=== PATIENT | female | born 1930 | race Caucasian/White ===

== ENCOUNTER 2019-02-04 20:15 | Inpatient (IN) | payer MEDICARE, OTHER ==
[~2019-02-04] VITALS: Ht 152.4 cm; Wt 57.2 kg
[~2019-02-04 20:15] MED LIST: ACET500T68 PO; ASCO500T2 PO; CEFD300C PO; DILT240T8 PO; ERGO500027 PO; FERR325T20 PO; FURO20TA3 PO; LISI1TAB5 PO; MULT-479 PO; PANT40TA77 PO; POTA20TA82 PO; PRED5DRO16 LEFTEYE; WARF2TAB PO
[2019-02-04 20:55] LABS: BASO # 0.1 x10^3/uL (0.0-0.2); BASO % 0 % (0-3); EOS % 0 % (0-3); LYMPH % 9 % (24-48); MEAN CORPUSCULAR HEMOGLOBIN 31 pg (25-35); MEAN CORPUSCULAR HGB CONC 33 g/dL (31-37); MEAN CORPUSCULAR VOLUME 95 fL (79-100); MONO # 2.4 x10^3/uL (0.0-1.1); MONO % 7 % (0-9); NEUT # 28.2 x10^3uL (1.8-7.7); NEUT % 83 % (31-73); PLATELET COUNT 460 x10^3/uL (140-400); RED BLOOD COUNT 2.09 x10^6/uL (3.50-5.40); RED CELL DISTRIBUTION WIDTH 14.2 % (11.5-14.5); WHITE BLOOD COUNT 33.8 x10^3/uL (4.0-11.0)
[2019-02-04 21:04] LABS: CALCIUM 9.1 mg/dL (8.5-10.1); CREATININE 2.9 mg/dL (0.6-1.0); GFR 15.4
[2019-02-04 21:05] LABS: PROTHROMBIN TIME PATIENT 37.8 SEC (11.7-14.0)
[2019-02-04 21:10] LABS: ALBUMIN 2.4 g/dL (3.4-5.0); ALBUMIN/GLOBULIN RATIO 0.6 (1.0-1.7); MAGNESIUM 2.3 mg/dL (1.8-2.4); TOTAL BILIRUBIN 0.3 mg/dL (0.2-1.0); TOTAL PROTEIN 6.7 g/dL (6.4-8.2)
[2019-02-04 21:12] LABS: HEMOGLOBIN 6.5 g/dL (12.0-15.5)
[2019-02-04 21:14] LABS: BILIRUBIN,URINE NEGATIVE (NEG); CLARITY,URINE CLEAR; COLOR,URINE YELLOW; NITRITE,URINE NEGATIVE (NEG); PROTEIN,URINE NEGATIVE (NEG-TRACE); UROBILINOGEN,URINE 0.2 mg/dL (0.2 mg/dL)
[2019-02-04 21:24] LABS: BACTERIA,URINE 0 /HPF (0-FEW); FECAL OB PT NEGATIVE (NEG); SQUAMOUS EPITHELIAL CELL,UR OCC /LPF
[2019-02-04 22:00] LABS: % BASOS 1 % (0-3); % LYMPHS 8 % (24-48); % SEGS 91 % (35-66)
[2019-02-04] MEDS ORDERED: PANTOPRAZOLE IV PUSH 40 MG VIAL. IVP ONE (22:00)
[2019-02-04 22:01] LABS: PLT ESTIMATE INCREASED (ADEQUATE); POLYCHROMASIA SLIGHT; SCHISTOCYTES OCC
--- NOTE | 2019-02-04 22:53 | PHYS DOC ---
Past Medical History Past Medical History: CAD, Cancer, CHF, Dementia, GERD, Hip Fracture, Hypertension, Renal Failure Past Surgical History: Hip Replacement Additional Past Surgical Histo: pt does not know Alcohol Use: None Drug Use: None Adult General Chief Complaint Chief Complaint: ABNORMAL LABS HPI HPI 89-year-old female presents to ER via EMS from the [facility] for abnormal labs. Dr. Olivo had spoke with Dr. Connelly, pt's PCP prior to pt's arrival and pt has low H&H and is on Coumadin with concerns for GI bleed with dark stools. Also reported pt with some increased confusion. Pt on arrival is alert to self- fatigued/frail appearance. Review of Systems Review of Systems Pt's alert to self otherwise confused and unable to provide ROS Current Medications Current Medications Allergies Allergies Allergies Coded Allergies Type Severity Reaction Last Updated Verified NSAIDS (Non-Steroidal Anti-Inflamma Allergy Unknown 01/26/19 Yes Physical Exam Physical Exam Constitutional: Well developed, no acute distress, non-toxic appearance. Fatigued appearance. Pale facial skin tone. Clear speech HENT: Normocephalic, atraumatic, mucous membranes pale/dry, no oral exudates, nose normal. [] Eyes: PERRLA, no nystagmus, conjunctiva normal, no discharge. [] Neck: Normal range of motion, no tenderness, supple, no stridor. [] Cardiovascular: Heart rate regular rhythm, no murmur [] Lungs & Thorax: Bilateral breath sounds clear to auscultation- resp. equal/nonlabored Abdomen: Bowel sounds normal, soft- no distention/rigidity, no tenderness/facial grimacing on palp. of abd, no masses, no pulsatile masses. [] Skin: Warm, dry, no erythema, no rash. [] Back: No tenderness, no CVA tenderness. [] Extremities: No cyanosis, no clubbing, ROM intact bilat. upper extremities, decreased ROM rt LE- pt had rt hip surgery. Surgical site rt lateral hip healing welling- adin intact with no swelling/erythema/drainage. No edema. 2+ radial bilat. 2+ bilat. posterior tibial/dorsalis pedis. [] Neurologic: Alert and oriented X 1, normal motor function, normal sensory f unction, no focal deficits noted. [] Psychologic: Affect normal, mood normal. [] Current Patient Data Vital Signs Vital Signs Date Time Temp Pulse Resp B/P (MAP) Pulse Ox O2 Delivery O2 Flow Rate FiO2 02/04/19 21:21 90 117/58 (77) 99 Room Air 02/04/19 20:15 98.3 24 98.3 Lab Values Laboratory Tests Test 02/04/19 20:38 02/04/19 21:00 White Blood Count 33.8 x10^3/uL (4.0-11.0) H Red Blood Count 2.09 x10^6/uL (3.50-5.40) L Hemoglobin 6.5 g/dL (12.0-15.5) Hematocrit 20.0 % (36.0-47.0) *L Mean Corpuscular Volume 95 fL (79-100) Mean Corpuscular Hemoglobin 31 pg (25-35) Mean Corpuscular Hemoglobin Concent 33 g/dL (31-37) Red Cell Distribution Width 14.2 % (11.5-14.5) Platelet Count 460 x10^3/uL (140-400) H Neutrophils (%) (Auto) 83 % (31-73) H Lymphocytes (%) (Auto) 9 % (24-48) L Monocytes (%) (Auto) 7 % (0-9) Eosinophils (%) (Auto) 0 % (0-3) Basophils (%) (Auto) 0 % (0-3) Neutrophils # (Auto) 28.2 x10^3uL (1.8-7.7) H Lymphocytes # (Auto) 3.0 x10^3/uL (1.0-4.8) Monocytes # (Auto) 2.4 x10^3/uL (0.0-1.1) H Eosinophils # (Auto) 0.0 x10^3/uL (0.0-0.7) Basophils # (Auto) 0.1 x10^3/uL (0.0-0.2) Segmented Neutrophils % 91 % (35-66) H Lymphocytes % 8 % (24-48) L Basophils % 1 % (0-3) Platelet Estimate Increased (ADEQUATE) Polychromasia Slight Schistocytes Occ Prothrombin Time 37.8 SEC (11.7-14.0) H Prothrombin Time INR 3.8 (0.8-1.1) H PTT 49 SEC (24-38) H Sodium Level 135 mmol/L (136-145) L Potassium Level 5.0 mmol/L (3.5-5.1) Chloride Level 101 mmol/L (98-107) Carbon Dioxide Level 19 mmol/L (21-32) L Anion Gap 15 (6-14) H Blood Urea Nitrogen 143 mg/dL (7-20) H Creatinine 2.9 mg/dL (0.6-1.0) H Estimated GFR (Cockcroft-Gault) 15.4 BUN/Creatinine Ratio 49 (6-20) H Glucose Level 158 mg/dL (70-99) H Lactic Acid Level 1.1 mmol/L (0.4-2.0) Calcium Level 9.1 mg/dL (8.5-10.1) Magnesium Level 2.3 mg/dL (1.8-2.4) Total Bilirubin 0.3 mg/dL (0.2-1.0) Aspartate Amino Transferase (AST) 12 U/L (15-37) L Alanine Aminotransferase (ALT) 17 U/L (14-59) Alkaline Phosphatase 84 U/L (46-116) Total Protein 6.7 g/dL (6.4-8.2) Albumin 2.4 g/dL (3.4-5.0) L Albumin/Globulin Ratio 0.6 (1.0-1.7) L Urine Collection Type U cath Urine Color Yellow Urine Clarity Clear Urine pH 5.0 Urine Specific [place] 1.015 Urine Protein Negative mg/dL (NEG-TRACE) Urine Glucose (UA) Negative mg/dL (NEG) Urine Ketones (Stick) Negative mg/dL (NEG) Urine Blood Small (NEG) Urine Nitrite Negative (NEG) Urine Bilirubin Negative (NEG) Urine Urobilinogen Dipstick 0.2 mg/dL (0.2 mg/dL) Urine Leukocyte Esterase Moderate (NEG) Urine RBC 1-2 /HPF (0-2) Urine WBC 1-4 /HPF (0-4) Urine Squamous Epithelial Cells Occ /LPF Urine Bacteria 0 /HPF (0-FEW) Stool Occult Blood Negative (NEG) Laboratory Tests 02/04/19 20:38 Laboratory Tests 02/04/19 20:38 Microbiology 02/04/19 Blood Culture - Final, Complete NO GROWTH AFTER 5 DAYS 02/04/19 Urine Culture - Final, Complete 02/04/19 Urine Culture Result 1 (HIRAM) - Final, Complete 02/04/19 Antimicrobic Susceptibility - Final, Complete EKG EKG EKG obtained 02/04/19 at [address] Olivo Sinus rhythm Prolonged ME Rate 91 No STEMI Radiology/Procedures Radiology/Procedures PROCEDURE: CHEST AP ONLY AP chest. HISTORY: Weakness, low hemoglobin AP view was taken of the chest. Heart is within normal limits in size. There is a large hiatus hernia. There is no pleural effusion. There are no confluent infiltrates. IMPRESSION: 1. Large hiatus hernia. 2. No acute infiltrates. Electronically signed by: Edilson Hand MD (02/04/2019 11:21 PM) [facility] DICTATED and SIGNED BY: EDILSON HAND MD DATE: 02/04/192320 Course & Med Decision Making Course & Med Decision Making Pertinent Labs and Imaging studies reviewed. (See chart for details) Pt's case and plan of care was discussed with Dr. Olivo as he had spoke with Dr. Connelly, pt's PCP regarding pt's case. Patient had type and cross done and will receive 2 units FFP and 2 units packed red blood cells. Patient's fecal occult was negative although stools per RN were dark in color no gross blood. 2139: Spoke with Dr. Connelly, pt's PCP and discussed pt's case and plans for admit/blood transfusion. Lab results were discussed with H&H at 6.8/21.5; INR 3.8. WBCs 33.8 no bands with lactic acid normal 1.1. UA with moderate leuks neg. nitrates/small blood with micro showing WBCs 1-4 with occas. squamous cells. Chest x-ray was reviewed by Dr. Olivo when no obvious abnormal findings. He is agreeable that patient will receive 2 units FFP and 2 units packed red blood cells. He is also requesting patient to have vitamin K and Protonix IV started. Will provide patient with 80 mg IV Protonix bolus and start drip. He also wants SCDs and GI consult. We will obtain H&H every 6 hours per his request as well. Patient will be admitted to monitored floor for further care. Dragon Disclaimer Dragon Disclaimer This electronic medical record was generated, in whole or in part, using a voice recognition dictation system. Departure Departure Impression: Primary Impression: Anemia Additional Impression: Leukocytosis Disposition: ADMITTED INPATIENT Admitting Physician: Madi. Renee Condition: STABLE Referrals: BERRY CONNELLY MD (PCP) Problem Qualifiers RASHARD VAZQUEZ CANVAS BASTER Feb 04, 2019 22:53
[2019-02-04] MEDS ORDERED: PHYTONADIONE 10 MG/ML AMPUL. SQ ONE (23:00)
--- NOTE | 2019-02-04 23:23 | RAD ---
AP chest. HISTORY: Weakness, low hemoglobin AP view was taken of the chest. Heart is within normal limits in size. There is a large hiatus hernia. There is no pleural effusion. There are no confluent infiltrates. IMPRESSION: 1. Large hiatus hernia. 2. No acute infiltrates. Electronically signed by: Edilson Hand MD (02/04/2019 11:21 PM) [facility]
[2019-02-04] MEDS: PANTOPRAZOLE SODIUM IV DRIP 80 MG in IV NORMAL SALINE 100ML 100 ML IV SCH (23:24)
[2019-02-05] VITALS (22 sets, daily range): BP systolic 111–145; BP diastolic 37–59
--- NOTE | 2019-02-05 | NUR ---
The patient, LESLEE PAZ, 89 y/o, F admitted by BERRY CAMPBELL MD, was given written information regarding hospital policies, unit procedures and contact persons. Patient arrived in room at this time. The patient was transported via ED bed by ED staff member. No family members at patient's bedside at this time. Valuables were checked and noted, patient's belongings were placed in a belongings bag and put in the room closet. Patient is currently resting with eyes closed in bed at this time. Patient states no needs during this time, patient was cleaned and changed at this time. This RN will continue to monitor this patient at this time.
--- NOTE | 2019-02-05 06:03 | EKG ---
[facility] [address] [place] [address] Test Date: 2019-02-04 Test Time: 20:49:59 Pat Name: LESLEE PAZ Department: Room: Gender: F [employer] Supervisor: : [id number] Requested By: RASHARD VAZQUEZ Order Number: [id number] Reading MD: Measurements Intervals [place] Rate: 90 P: -7 IA: 226 QRS: 53 QRSD: 66 T: 67 QT: 338 QTc: 417 Interpretive Statements SINUS RHYTHM PROLONGED IA INTERVAL ABNORMAL ECG No previous ECG available for comparison
[2019-02-05] MEDS: PANTOPRAZOLE SODIUM IV DRIP 80 MG in IV NORMAL SALINE 100ML 100 ML IV SCH (08:54)
--- NOTE | 2019-02-05 08:55 | PDOC2 ---
GI CONSULT Reason For Consult: Anemia, dark stools HPI: HPI: 89 y/o female sent to ER from [facility] for anemia and dark stools. Not a lot of meaningful history from her this morning. "I think I had some bleeding. I think I had some pain." Hgb 6.5 (compared to 12 on 01/26/19 and 10.5 on 01/29 s/p right hip fracture and repair), INR 3.8 on Warfarin (which I believe was started after hips surgery though this is unclear), BUN 143, Cr 2.9, and WBC 33.8. Fecal occult was negative. In additional to Warfarin, her med list from the [facility] includes iron and Protonix. Per RN, had 1 dark stool overnight. Has transfused 1 unit pRBCs, received vit K x1, and is on PPI drip. No labs today. PMH in chart includes PUD and GERD. X-ray noted large hiatal hernia. PMH: PMH: per chart - CHF, HTN, CKD, GERD, hiatal hernia, PUD, dementia, OA, UTI, BCC, DJD, PVD, glaucoma right shoulder surgery, right hip fracture/surgery FH: Family History: No pertinent hx Social History: Smoke: Quit ALCOHOL: none Drugs: None ROS: Difficult to obtain. Vitals: Vitals: Vital Signs Date Time Temp Pulse Resp B/P (MAP) Pulse Ox O2 Delivery O2 Flow Rate FiO2 02/05/19 07:49 Room Air 02/05/19 07:00 98.3 82 18 121/42 (68) 96 98.3 Labs: Labs: Laboratory Tests Test 02/04/19 20:38 02/04/19 21:00 White Blood Count 33.8 x10^3/uL (4.0-11.0) Red Blood Count 2.09 x10^6/uL (3.50-5.40) Hemoglobin 6.5 g/dL (12.0-15.5) Hematocrit 20.0 % (36.0-47.0) Mean Corpuscular Volume 95 fL (79-100) Mean Corpuscular Hemoglobin 31 pg (25-35) Mean Corpuscular Hemoglobin Concent 33 g/dL (31-37) Red Cell Distribution Width 14.2 % (11.5-14.5) Platelet Count 460 x10^3/uL (140-400) Neutrophils (%) (Auto) 83 % (31-73) Lymphocytes (%) (Auto) 9 % (24-48) Monocytes (%) (Auto) 7 % (0-9) Eosinophils (%) (Auto) 0 % (0-3) Basophils (%) (Auto) 0 % (0-3) Neutrophils # (Auto) 28.2 x10^3uL (1.8-7.7) Lymphocytes # (Auto) 3.0 x10^3/uL (1.0-4.8) Monocytes # (Auto) 2.4 x10^3/uL (0.0-1.1) Eosinophils # (Auto) 0.0 x10^3/uL (0.0-0.7) Basophils # (Auto) 0.1 x10^3/uL (0.0-0.2) Segmented Neutrophils % 91 % (35-66) Lymphocytes % 8 % (24-48) Basophils % 1 % (0-3) Platelet Estimate Increased (ADEQUATE) Polychromasia Slight Schistocytes Occ Prothrombin Time 37.8 SEC (11.7-14.0) Prothromb Time International Ratio 3.8 (0.8-1.1) Activated Partial Thromboplast Time 49 SEC (24-38) Sodium Level 135 mmol/L (136-145) Potassium Level 5.0 mmol/L (3.5-5.1) Chloride Level 101 mmol/L (98-107) Carbon Dioxide Level 19 mmol/L (21-32) Anion Gap 15 (6-14) Blood Urea Nitrogen 143 mg/dL (7-20) Creatinine 2.9 mg/dL (0.6-1.0) Estimated GFR (Cockcroft-Gault) 15.4 BUN/Creatinine Ratio 49 (6-20) Glucose Level 158 mg/dL (70-99) Lactic Acid Level 1.1 mmol/L (0.4-2.0) Calcium Level 9.1 mg/dL (8.5-10.1) Magnesium Level 2.3 mg/dL (1.8-2.4) Total Bilirubin 0.3 mg/dL (0.2-1.0) Aspartate Amino Transf (AST/SGOT) 12 U/L (15-37) Alanine Aminotransferase (ALT/SGPT) 17 U/L (14-59) Alkaline Phosphatase 84 U/L (46-116) Total Protein 6.7 g/dL (6.4-8.2) Albumin 2.4 g/dL (3.4-5.0) Albumin/Globulin Ratio 0.6 (1.0-1.7) Urine Collection Type U cath Urine Color Yellow Urine Clarity Clear Urine pH 5.0 Urine Specific [place] 1.015 Urine Protein Negative mg/dL (NEG-TRACE) Urine Glucose (UA) Negative mg/dL (NEG) Urine Ketones (Stick) Negative mg/dL (NEG) Urine Blood Small (NEG) Urine Nitrite Negative (NEG) Urine Bilirubin Negative (NEG) Urine Urobilinogen Dipstick 0.2 mg/dL (0.2 mg/dL) Urine Leukocyte Esterase Moderate (NEG) Urine RBC 1-2 /HPF (0-2) Urine WBC 1-4 /HPF (0-4) Urine Squamous Epithelial Cells Occ /LPF Urine Bacteria 0 /HPF (0-FEW) Stool Occult Blood Negative (NEG) Allergies: Coded Allergies: I S O L A T I O N *CONTACT* (Verified Allergy, Unknown, 01/28/19) mrsa NSAIDS (Non-Steroidal Anti-Inflamma (Verified Allergy, Unknown, 01/26/19) Medications: Current Medications Medications (Trade) Dose Ordered Sig/Sen Route PRN Reason Start Time Stop Time Status Last Admin Dose Admin Pantoprazole Sodium (PROTONIX VIAL for IV PUSH) 80 mg 1X ONCE IVP 02/04/19 22:00 02/04/19 22:11 DC 02/04/19 23:23 Pantoprazole Sodium 80 mg/ Sodium Chloride 100 ml @ 8 mls/hr Q10H IV 02/04/19 22:30 02/05/19 22:29 02/05/19 08:54 Phytonadione (Vitamin K Ampule) 5 mg 1X ONCE SQ 02/04/19 23:00 02/04/19 23:01 DC 02/04/19 23:29 Imaging: Imaging: CXR IMPRESSION: 1. Large hiatus hernia. 2. No acute infiltrates. PE: GEN: NAD HEENT: Atraumatic, PERRL LUNGS: room air HEART: RRR - pushes stethoscope away ABD: NABS, S/ND/NT - difficult exam - she pushes my hands away EXTREMITY: No edema SKIN: wound right hip NEURO/PSYCH: awake and alert, confused A/P: A/P: Anemia, dark stools - on iron Leukocytosis, GURDEEP/CKD Recent hip surgery, Coumadin coagulopathy ?h/o PUD, GERD, large hiatal hernia - on PPI CRC screen - unclear -- Anemia likely related to recent hip fracture/surgery and Warfarin. Hold Warfarin. Recheck labs (has hemogram ordered Q 6 - defer to primary), correct coagulopathy, continue PPI, restart iron. Will ask for nephrology opinion - consider EGD on Sunday pending renal function and DPOA opinion. Okay to eat - try clears and ADAT - d/w nurse. Defer leukocytosis to primary. PAOLA KHOURY Feb 05, 2019 08:55
--- NOTE | 2019-02-05 09:15 | NUR ---
Pt admitted with severe anemia. D/C from here recently back to [place]. Per previous admission pt was indep amb at facility and able to assist with dressing. Pt would benefit from PT/OT assessment. Please write PT/OT eval and treat orders if you agree. Addendum: 02/05/19 at 0915 by KARLY JORDAN PT Amended: Links added.
--- NOTE | 2019-02-05 09:18 | NUR ---
IP: Pt has a recent hx of + mrsa screen on 01/27/19. Pt to be in contact precautions until there are 2 negative screens 7 days apart.
[2019-02-05] MEDS: FERROUS SULFATE 325 MG TABLET. PO SCH ×2 (11:01→16:25)
[2019-02-05 11:05] LABS: HEMATOCRIT 22.1 % (36.0-47.0); HEMOGLOBIN 7.3 g/dL (12.0-15.5); RED BLOOD COUNT 2.4 x10^6/uL (3.50-5.40); RED CELL DISTRIBUTION WIDTH 16.8 % (11.5-14.5); WHITE BLOOD COUNT 25.4 x10^3/uL (4.0-11.0)
[2019-02-05 11:14] LABS: PROTHROMBIN TIME PATIENT 30.4 SEC (11.7-14.0)
[2019-02-05 11:28] LABS: ALBUMIN 2.4 g/dL (3.4-5.0); ALBUMIN/GLOBULIN RATIO 0.6 (1.0-1.7); CALCIUM 8.8 mg/dL (8.5-10.1); CREATININE 3.1 mg/dL (0.6-1.0); GFR 14.2; TOTAL BILIRUBIN 0.4 mg/dL (0.2-1.0); TOTAL PROTEIN 6.2 g/dL (6.4-8.2)
[2019-02-05] MEDS ORDERED: IV NORMAL SALINE 1000ML BAG 1,000 ML IV SCH (11:30)
--- NOTE | 2019-02-05 11:45 | PDOC2 ---
CONSULT Date of Consult Date of Consult DATE: 02/05/19 TIME: 11:34 Reason for Consult Reason for Consult: GURDEEP Source Source: Caregiver, Chart review History of Present Illness Reason for Visit: Hx Obtained from daughter and grand daughter Pt is 89-year-old female brought to the ER on 02/04/2019 via EMS for abnormal labs in a [place], She is followed by Dr. Connelly. Hx of "decreased Kidney function, it was very low" approx 4 years ago. Seen by big data hadoop developer at the time No fu since. Reports improvement in renal function. Recurrent UTI- nearly Q 3 Months , Most recent last week- Only symptoms she gets more confused . Baseline MS currently but more lethargic. Doesn't recognize daughter S/P Hip Surgery 1 week ago at [facility] Labs Ordered at [place] as she was lethargic, Found to have Low Hgb- and elevated wbc. Sent to [facility] f. Recd PRBClst night GI Consulted Past Medical History Cardiovascular: CHF, HTN Pulmonary: No pertinent hx CENTRAL NERVOUS SYSTEM: Dementia GI: GERD Psych: Other Musculoskeletal: Osteoarthritis Renal/: Chronic renal insuff Past Surgical History Past Surgical History: Other Family History Family History: Hypertension Social History Quit ALCOHOL: none Drugs: None Lives: [facility]dc Current Medications Current Medications Current Medications Pantoprazole Sodium (PROTONIX VIAL for IV PUSH) 80 mg 1X ONCE IVP Last administered on 02/04/19at 23:23; Start 02/04/19 at 22:00; Stop 02/04/19 at 22:11; Status DC Pantoprazole Sodium 80 mg/ Sodium Chloride 100 ml @ 8 mls/hr Q10H IV Last administered on 02/05/19at 08:54; Start 02/04/19 at 22:30; Stop 02/05/19 at 09:26; Status DC Phytonadione (Vitamin K Ampule) 5 mg 1X ONCE SQ Last administered on 02/04/19at 23:29; Start 02/04/19 at 23:00; Stop 02/04/19 at 23:01; Status DC Pantoprazole Sodium (Protonix) 40 mg DAILYAC PO ; Start 02/06/19 at 07:30 Ferrous Sulfate (Feosol) 325 mg BIDWMEALS PO Last administered on 02/05/19at 11:01; Start 02/05/19 at 12:00 Sodium Chloride 1,000 ml @ 100 mls/hr Q10H IV ; Start 02/05/19 at 11:15 Ascorbic Acid (Vitamin C) 500 mg BID PO ; Start 02/05/19 at 21:00; Status UNV Ergocalciferol (Vitamin D2) 50,000 unit WEEKLY PO ; Start 02/12/19 at 09:00; Status UNV Ferrous Sulfate (Feosol) 325 mg BID PO ; Start 02/05/19 at 21:00; Status UNV Pantoprazole Sodium (Protonix) 40 mg HS PO ; Start 02/05/19 at 21:00; Status UNV Non-Formulary Medication (Acetaminophen ) 1,000 mg TID PO ; Start 02/05/19 at 14:00; Status UNV Non-Formulary Medication (Multivitamins,Therapeutic (Thera-Tabs)) 1 each DAILY08 PO ; Start 02/06/19 at 08:00; Status UNV Non-Formulary Medication (Prednisolone Acetate ) 1 drop DAILY08 LEFTEYE ; Start 02/06/19 at 08:00; Status UNV Sodium Chloride 1,000 ml @ 100 mls/hr Q10H IV ; Start 02/05/19 at 11:30; Stop 02/05/19 at 11:30; Status DC Active Scripts Active Coumadin (Warfarin Sodium) 2 Mg Tablet 1 Tab PO DAILY 30 Days Cefdinir 300 Mg Capsule 1 Cap PO BID 7 Days Reported Protonix (Pantoprazole Sodium) 40 Mg Tablet.dr 40 Mg PO HS Acetaminophen 500 Mg Tablet 1,000 Mg PO TID TID at 0800, 1200, and 1700 Vitamin C (Ascorbic Acid) 500 Mg Tablet 500 Mg PO BID BID at 0800 and 1700 Ferosul (Ferrous Sulfate) 325 Mg Tablet 325 Mg PO BID BID at 0800 and 1700 Diltiazem 24Hr ER (LA) (Diltiazem HCl) 240 Mg Tab.er.24h 240 Mg PO BID BID at 0800 and 1700 Vitamin D2 (Ergocalciferol (Vitamin D2)) 50,000 Unit Capsule 1 Cap PO WEEKLY Once a week on Sunday Thera-Tabs (Multivitamins,Therapeutic) 1 Each Tablet 1 Each PO DAILY08 Prednisolone Acetate 5 Ml Drops.susp 1 Drop LEFTEYE DAILY08 Potassium Chloride 20 Meq Tablet.er 20 Meq PO DAILY08 Lisinopril-Hctz 20-12.5 Mg Tab (Lisinopril/Hydrochlorothiazide) 1 Each Tablet 1 Tab PO DAILY08 Furosemide 20 Mg Tablet 1 Tab PO DAILY08 Allergies Allergies: Coded Allergies: I S O L A T I O N *CONTACT* (Verified Allergy, Unknown, 01/28/19) mrsa NSAIDS (Non-Steroidal Anti-Inflamma (Verified Allergy, Unknown, 01/26/19) ROS Review of System Unable to Obtain from Pr 08/31 baseline dementia Physical Exam Physical Exam GEN: NAD HEN: Om dry NECK: Supple CVS: RRR RESP: CTA, No Acc. Muscle Use GI: BS + ve, Non Tender, Non Distended : No CVA tenderness, No Suprapubic Tenderness, No Dozier (Incontinent) Skin - No rash Neuro- dementia, Grossly Normal Vital Signs Vital Signs Date Time Temp Pulse Resp B/P (MAP) Pulse Ox O2 Delivery O2 Flow Rate FiO2 02/05/19 07:49 Room Air 02/05/19 07:00 98.3 82 18 121/42 (68) 96 98.3 Assessment & Plan GURDEEP -ATN Baseline Unknown , BUN very Hgh suspect sec to GI bleed Ordered Renal US Hydration with IVF , Supportive care , Monitor Strict I/O Metabolic acidosis- sec to above ? CKD - Unknown baseline ? UTI- per primary ?Anemia- s/p PRBC GI Following Discussed A/P with Daughter and Grand-daughter Labs Labs Laboratory Tests Test 02/04/19 20:38 02/04/19 21:00 02/05/19 10:55 White Blood Count 33.8 x10^3/uL (4.0-11.0) 25.4 x10^3/uL (4.0-11.0) Red Blood Count 2.09 x10^6/uL (3.50-5.40) 2.40 x10^6/uL (3.50-5.40) Hemoglobin 6.5 g/dL (12.0-15.5) 7.3 g/dL (12.0-15.5) Hematocrit 20.0 % (36.0-47.0) 22.1 % (36.0-47.0) Mean Corpuscular Volume 95 fL (79-100) 92 fL (79-100) Mean Corpuscular Hemoglobin 31 pg (25-35) 30 pg (25-35) Mean Corpuscular Hemoglobin Concent 33 g/dL (31-37) 33 g/dL (31-37) Red Cell Distribution Width 14.2 % (11.5-14.5) 16.8 % (11.5-14.5) Platelet Count 460 x10^3/uL (140-400) 365 x10^3/uL (140-400) Neutrophils (%) (Auto) 83 % (31-73) Lymphocytes (%) (Auto) 9 % (24-48) Monocytes (%) (Auto) 7 % (0-9) Eosinophils (%) (Auto) 0 % (0-3) Basophils (%) (Auto) 0 % (0-3) Neutrophils # (Auto) 28.2 x10^3uL (1.8-7.7) Lymphocytes # (Auto) 3.0 x10^3/uL (1.0-4.8) Monocytes # (Auto) 2.4 x10^3/uL (0.0-1.1) Eosinophils # (Auto) 0.0 x10^3/uL (0.0-0.7) Basophils # (Auto) 0.1 x10^3/uL (0.0-0.2) Segmented Neutrophils % 91 % (35-66) Lymphocytes % 8 % (24-48) Basophils % 1 % (0-3) Platelet Estimate Increased (ADEQUATE) Polychromasia Slight Schistocytes Occ Prothrombin Time 37.8 SEC (11.7-14.0) 30.4 SEC (11.7-14.0) Prothromb Time International Ratio 3.8 (0.8-1.1) 2.9 (0.8-1.1) Activated Partial Thromboplast Time 49 SEC (24-38) Sodium Level 135 mmol/L (136-145) 138 mmol/L (136-145) Potassium Level 5.0 mmol/L (3.5-5.1) 5.0 mmol/L (3.5-5.1) Chloride Level 101 mmol/L (98-107) 109 mmol/L (98-107) Carbon Dioxide Level 19 mmol/L (21-32) 17 mmol/L (21-32) Anion Gap 15 (6-14) 12 (6-14) Blood Urea Nitrogen 143 mg/dL (7-20) 140 mg/dL (7-20) Creatinine 2.9 mg/dL (0.6-1.0) 3.1 mg/dL (0.6-1.0) Estimated GFR (Cockcroft-Gault) 15.4 14.2 BUN/Creatinine Ratio 49 (6-20) 45 (6-20) Glucose Level 158 mg/dL (70-99) 133 mg/dL (70-99) Lactic Acid Level 1.1 mmol/L (0.4-2.0) Calcium Level 9.1 mg/dL (8.5-10.1) 8.8 mg/dL (8.5-10.1) Magnesium Level 2.3 mg/dL (1.8-2.4) Total Bilirubin 0.3 mg/dL (0.2-1.0) 0.4 mg/dL (0.2-1.0) Aspartate Amino Transf (AST/SGOT) 12 U/L (15-37) 13 U/L (15-37) Alanine Aminotransferase (ALT/SGPT) 17 U/L (14-59) 13 U/L (14-59) Alkaline Phosphatase 84 U/L (46-116) 68 U/L (46-116) Total Protein 6.7 g/dL (6.4-8.2) 6.2 g/dL (6.4-8.2) Albumin 2.4 g/dL (3.4-5.0) 2.4 g/dL (3.4-5.0) Albumin/Globulin Ratio 0.6 (1.0-1.7) 0.6 (1.0-1.7) Urine Collection Type U cath Urine Color Yellow Urine Clarity Clear Urine pH 5.0 Urine Specific [place] 1.015 Urine Protein Negative mg/dL (NEG-TRACE) Urine Glucose (UA) Negative mg/dL (NEG) Urine Ketones (Stick) Negative mg/dL (NEG) Urine Blood Small (NEG) Urine Nitrite Negative (NEG) Urine Bilirubin Negative (NEG) Urine Urobilinogen Dipstick 0.2 mg/dL (0.2 mg/dL) Urine Leukocyte Esterase Moderate (NEG) Urine RBC 1-2 /HPF (0-2) Urine WBC 1-4 /HPF (0-4) Urine Squamous Epithelial Cells Occ /LPF Urine Bacteria 0 /HPF (0-FEW) Stool Occult Blood Negative (NEG) Laboratory Tests Test 02/04/19 20:38 02/04/19 21:00 02/05/19 10:55 White Blood Count 33.8 x10^3/uL (4.0-11.0) 25.4 x10^3/uL (4.0-11.0) Red Blood Count 2.09 x10^6/uL (3.50-5.40) 2.40 x10^6/uL (3.50-5.40) Hemoglobin 6.5 g/dL (12.0-15.5) 7.3 g/dL (12.0-15.5) Hematocrit 20.0 % (36.0-47.0) 22.1 % (36.0-47.0) Mean Corpuscular Volume 95 fL (79-100) 92 fL (79-100) Mean Corpuscular Hemoglobin 31 pg (25-35) 30 pg (25-35) Mean Corpuscular Hemoglobin Concent 33 g/dL (31-37) 33 g/dL (31-37) Red Cell Distribution Width 14.2 % (11.5-14.5) 16.8 % (11.5-14.5) Platelet Count 460 x10^3/uL (140-400) 365 x10^3/uL (140-400) Neutrophils (%) (Auto) 83 % (31-73) Lymphocytes (%) (Auto) 9 % (24-48) Monocytes (%) (Auto) 7 % (0-9) Eosinophils (%) (Auto) 0 % (0-3) Basophils (%) (Auto) 0 % (0-3) Neutrophils # (Auto) 28.2 x10^3uL (1.8-7.7) Lymphocytes # (Auto) 3.0 x10^3/uL (1.0-4.8) Monocytes # (Auto) 2.4 x10^3/uL (0.0-1.1) Eosinophils # (Auto) 0.0 x10^3/uL (0.0-0.7) Basophils # (Auto) 0.1 x10^3/uL (0.0-0.2) Segmented Neutrophils % 91 % (35-66) Lymphocytes % 8 % (24-48) Basophils % 1 % (0-3) Platelet Estimate Increased (ADEQUATE) Polychromasia Slight Schistocytes Occ Prothrombin Time 37.8 SEC (11.7-14.0) 30.4 SEC (11.7-14.0) Prothromb Time International Ratio 3.8 (0.8-1.1) 2.9 (0.8-1.1) Activated Partial Thromboplast Time 49 SEC (24-38) Sodium Level 135 mmol/L (136-145) 138 mmol/L (136-145) Potassium Level 5.0 mmol/L (3.5-5.1) 5.0 mmol/L (3.5-5.1) Chloride Level 101 mmol/L (98-107) 109 mmol/L (98-107) Carbon Dioxide Level 19 mmol/L (21-32) 17 mmol/L (21-32) Anion Gap 15 (6-14) 12 (6-14) Blood Urea Nitrogen 143 mg/dL (7-20) 140 mg/dL (7-20) Creatinine 2.9 mg/dL (0.6-1.0) 3.1 mg/dL (0.6-1.0) Estimated GFR (Cockcroft-Gault) 15.4 14.2 BUN/Creatinine Ratio 49 (6-20) 45 (6-20) Glucose Level 158 mg/dL (70-99) 133 mg/dL (70-99) Lactic Acid Level 1.1 mmol/L (0.4-2.0) Calcium Level 9.1 mg/dL (8.5-10.1) 8.8 mg/dL (8.5-10.1) Magnesium Level 2.3 mg/dL (1.8-2.4) Total Bilirubin 0.3 mg/dL (0.2-1.0) 0.4 mg/dL (0.2-1.0) Aspartate Amino Transf (AST/SGOT) 12 U/L (15-37) 13 U/L (15-37) Alanine Aminotransferase (ALT/SGPT) 17 U/L (14-59) 13 U/L (14-59) Alkaline Phosphatase 84 U/L (46-116) 68 U/L (46-116) Total Protein 6.7 g/dL (6.4-8.2) 6.2 g/dL (6.4-8.2) Albumin 2.4 g/dL (3.4-5.0) 2.4 g/dL (3.4-5.0) Albumin/Globulin Ratio 0.6 (1.0-1.7) 0.6 (1.0-1.7) Urine Collection Type U cath Urine Color Yellow Urine Clarity Clear Urine pH 5.0 Urine Specific [place] 1.015 Urine Protein Negative mg/dL (NEG-TRACE) Urine Glucose (UA) Negative mg/dL (NEG) Urine Ketones (Stick) Negative mg/dL (NEG) Urine Blood Small (NEG) Urine Nitrite Negative (NEG) Urine Bilirubin Negative (NEG) Urine Urobilinogen Dipstick 0.2 mg/dL (0.2 mg/dL) Urine Leukocyte Esterase Moderate (NEG) Urine RBC 1-2 /HPF (0-2) Urine WBC 1-4 /HPF (0-4) Urine Squamous Epithelial Cells Occ /LPF Urine Bacteria 0 /HPF (0-FEW) Stool Occult Blood Negative (NEG) Review All relevant outside records, renal labs, imaging studies, telemetry/EKG's were reviewed. LOBO HOLT MD Feb 05, 2019 11:45
[2019-02-05] MEDS ORDERED: IV NORMAL SALINE 500ML BAG 500 ML IV ONE (12:00)
--- NOTE | 2019-02-05 12:26 | HP ---
ADMIT DATE: 02/04/2019 HISTORY OF PRESENT ILLNESS: The patient is an 89-year-old female patient, a resident at [facility] in [place], who apparently was complaining of not feeling well, had dark stool and her blood pressure was somewhat low. She apparently has had her lab work done there and it showed that her H and H was low with hemoglobin of 6.5. Her BUN was elevated also and therefore, the patient was sent [facility] where lab work confirmed that the patient at least has bled although the stool for occult blood was negative. Her white cell count was extremely high at 33,800, hemoglobin was 6.5, hematocrit 20, MCV 95, and platelet count 460,000. Her prothrombin time was 37.8, INR of 3.8, aPTT was 49. Her chemistry showed that her serum sodium was 135, potassium 5, chloride 101, bicarbonate 19, BUN of 143, creatinine was 2.9, estimated GFR was 15 mL per minute, her glucose 158 although lactic acid is only 1.1, her calcium was 9.1, magnesium 2.3. Total bilirubin, AST, ALT, alkaline phosphatase were normal. Total protein was 6.7, albumin 2.4. The patient was given 2 units of fresh frozen plasma, 2 units of packed RBCs. We did start her on Protonix drip and we did consult the Gastroenterology team. She was supposed to have also IV fluid and to repeat her labs every 6 hours to make sure that she is responding. Unfortunately, apparently the patient has refused to allow them to draw the blood and unfortunately I was not notified that she has refused. In any case, we did consult also the Nephrology team to help with management and because of her marked leukocytosis I will consult the Infectious Disease also. PAST MEDICAL HISTORY: Significant for congestive heart failure, gastroesophageal reflux disease, chronic kidney disease, hypertension, glaucoma, degenerative joint disease, chronic pain syndrome, peripheral vascular disease, osteoarthritis, vitamin D deficiency, malignant neoplasm of the skin, peptic ulcer disease and diaphragmatic hernia. PAST SURGICAL HISTORY: Significant for excision of basal cell carcinoma as well as closed displaced comminuted right intertrochanteric fracture, status post closed reduction and intramedullary nailing of the right hip fracture done on 01/27/2019. ALLERGIES: SHE IS APPARENTLY ALLERGIC TO ALL NONSTEROIDAL ANTI-INFLAMMATORY MEDICATION. FAMILY HISTORY: Positive for coronary artery disease and type 2 diabetes. SOCIAL HISTORY: She is , residing at [facility] since 03/2015. She does not smoke, drink alcohol or use any recreational drugs. Her daughter is her DPOA. MEDICATIONS: She is on following medications: She was on cefdinir 300 mg twice a day for UTI, ferrous sulfate 325 mg twice a day, warfarin 2 mg daily, diltiazem 240 mg daily, lisinopril/hydrochlorothiazide 20/12.5 mg daily and acetaminophen 1000 mg 3 times a day. She is on potassium chloride 20 mEq daily, furosemide 20 mg daily, prednisolone acetate 1 drop to left eye daily, Protonix 40 mg at bedtime, ascorbic acid 500 mg b.i.d., ergocalciferol, vitamin D 50,000 international units once a week, multivitamin 1 tablet once a day. PHYSICAL EXAMINATION: GENERAL: On arrival to the Emergency Room, the patient was pale, no jaundice, cyanosis, or thyromegaly. No jugular venous distension. No lower limb edema. VITAL SIGNS: Her heart rate was 97, blood pressure 134/60, temperature was 98.3, respiratory rate was 24, and oxygen saturation was 97%. HEAD, EYES, EARS, NOSE AND THROAT: Normocephalic, atraumatic. NECK: Supple. HEART: Showed normal first and second heart sounds with no gallop, rub or murmur. CHEST: Clear to auscultation. No crepitation or rhonchi. ABDOMEN: Distended, soft, nontender. No guarding or rigidity. No organomegaly. All hernial orifice intact. Bowel sounds normal. NEUROLOGIC: She was demented, but without any obvious lateralizing sign. She moves her extremities without difficulty. LABORATORY AND DIAGNOSTIC DATA: Her lab work on arrival to the Emergency Room showed a white cell count of 33,800, hemoglobin 6.5, hematocrit 20, MCV 95, and platelet count 460,000. Her prothrombin time was 37.8, INR of 3.8, aPTT was 49. Her chemistry on arrival showed a serum sodium 135, potassium 5, chloride 101, bicarbonate 19, anion gap of 15, BUN of 143, creatinine was 2.9, estimated GFR was 15 mL per minute, her glucose was 158, lactic acid was 1.1, calcium was 9.1, magnesium was 2.3. Total bilirubin, AST, ALT, alkaline phosphatase were normal. Total protein was 6.7, albumin 2.4. IMPRESSION: In summary, this is an 89-year-old female patient who was admitted with acute blood loss anemia with hemoglobin that has dropped from 10.5 and 32.1 on 01/29/2019 down to 6.5 and 20. She also developed acute on chronic kidney injury. Her BUN has risen from 46 on 01/29/2019 to 143 yesterday and her creatinine has risen from 2.1 to 2.9. She obviously has supratherapeutic INR. She has history of peptic ulcer disease and unfortunately she for some reason went back on her Lasix, potassium and lisinopril as well as hydrochlorothiazide and that probably resulted in acute on chronic kidney injury. Her BUN is disproportionately elevated compared to creatinine indicating probably has significant blood loss. She did receive 2 units of packed RBCs as well as 2 units of fresh frozen plasma and 5 mg of vitamin K. We will repeat all her labs, her H and H, her BMP and PT/INR every 6 hours. We will decide further management as needed. We did consult the gastroenterology team. I will consult the hold worker as well as Infectious Disease specialist given her marked leukocytosis and also will inform Dr. Villatoro that the patient is back here in the hospital. BERRY CAMPBELL MD DR: NOE/bibiana JOB#: [id number] / [id number]
[2019-02-05] MEDS: MULTIVITAMIN with MINERAL TABLET. PO SCH (12:49)
[2019-02-05] MEDS: DEXAMETHASONE 0.1% OPHTH SOLUTION 5ML BOTTLE. OS SCH ×3 (12:49→22:00)
[2019-02-05] MEDS: ASCORBIC ACID 500 MG TABLET PO SCH ×2 (12:49→21:44)
[2019-02-05] MEDS: ACETAMINOPHEN 500 MG TABLET PO SCH ×2 (12:49→21:44)
--- NOTE | 2019-02-05 16:02 | NUR ---
SW following for discharge planning. Pt is LTC resident at [facility], ; fax [phone]. SW will continue to follow.
--- NOTE | 2019-02-05 16:13 | RAD ---
RENAL COMPLETE BILATERAL History: Acute kidney injury Comparison: None. Findings: Multiple sonographic images of the kidneys and urinary bladder are submitted. Right kidney measured 10 x 3.3 x 4.2 cm. Left kidney measured 10.3 x 4.4 x 4.2 cm. There is no hydronephrosis of either kidney. There is relative increased echogenicity of the right renal parenchyma also with some variable cortical thinning. There is a hypoechoic lesion of the mid right kidney with internal echoes up to about 1.2 cm in size, no vascular images demonstrated of this region. Estimated postvoid residual of urinary bladder was 71 cc. Impression: 1. There is no hydronephrosis of either kidney. 2. There is increased echodensity of the right renal parenchyma also with cortical thinning, may be component of medical renal disease. 3. There is a small hypoechoic lesion of the mid right kidney which may be a somewhat complex cyst, no vascular images submitted in this region. 4. There is mild post void residual in the urinary bladder. Electronically signed by: Boom Cisneros MD (02/05/2019 4:10 PM) [email or web address]
[2019-02-05] MEDS: IV NORMAL SALINE 1000ML BAG 1,000 ML IV SCH ×2 (16:27→21:15)
--- NOTE | 2019-02-05 17:02 | PN ---
DATE: 02/05/2019 SUBJECTIVE: The patient is an 89-year-old female patient who was admitted yesterday as she was noted to be unwell and her H and H was noted to be low. She was also diagnosed with acute blood loss anemia as well as acute on chronic kidney injury. She did receive 2 units of packed RBCs and 2 units of fresh frozen plasma. This morning, she was resting slightly propped up in bed, awake, alert, pleasantly confused. OBJECTIVE: GENERAL: On examining her, she was pale, but no jaundice, cyanosis, or thyromegaly. No jugular venous distension. No limb edema. VITAL SIGNS: Her heart rate was 82, blood pressure was 121/42, temperature was 98.3, respiratory rate was 18 and oxygen saturation was 96%. HEAD, EYES, EARS, NOSE AND THROAT: Showed normocephalic, atraumatic. NECK: Supple. HEART: Showed normal first and second heart sounds. No gallop, rub or murmur. CHEST: Clear to auscultation. No crepitation or rhonchi. EXTREMITIES: Slightly distended, soft, nontender. No guarding or rigidity. No organomegaly. All hernial orifices intact. Bowel sounds normal. NEUROLOGIC: She was demented, and confused, but all her cranial nerves are intact. She moves extremities without difficulty. Her intake over the last 24 hours incompletely recorded. LABORATORY DATA: Her lab work this morning showed that her white cell count is slightly down to 25,000, hemoglobin 7.3, hematocrit 22.1, MCV 92, and platelet count of 365,000. Her prothrombin time was 30.4, INR of 2.9. Her chemistry showed a serum sodium 138, potassium 5, chloride 109, bicarbonate 17, anion gap of 12, BUN 140, creatinine 3.1, estimated GFR was 14 mL per minute, her glucose was 133, calcium was 8.8. Total bilirubin, AST, ALT, alkaline phosphatase were normal. Total protein was 6.2, albumin 2.4. ASSESSMENT: 1. In summary, this is an 89-year-old female patient who was admitted with acute blood loss anemia. She was on Coumadin and anemia, probably multifactorial. She has a history of peptic ulcer disease, although so far her stool for occult blood was negative. 2. She has acute on chronic kidney injury. 3. Severe protein calorie malnutrition. PLAN: My plan is to give her a bolus of normal saline, give her 2 more units of fresh frozen plasma. I also place a Dozier catheter to monitor her intake closely. I have consulted the street car mechanic, Infectious Disease specialist and informed Dr. Villatoro that the patient is here. We will use SCDs for DVT prophylaxis and I am not sure that she is a candidate for anticoagulation. BERRY CAMPBELL MD DR: NOE/bibiana JOB#: [id number] / [id number]
[2019-02-05 17:51] LABS: RED BLOOD COUNT 2.04 x10^6/uL (3.50-5.40); RED CELL DISTRIBUTION WIDTH 17.2 % (11.5-14.5)
[2019-02-05 17:59] LABS: HEMATOCRIT 18.7 % (36.0-47.0); HEMOGLOBIN 6.3 g/dL (12.0-15.5)
[2019-02-05 18:00] LABS: PROTHROMBIN TIME PATIENT 20.4 SEC (11.7-14.0)
[2019-02-05 18:09] LABS: CALCIUM 8.7 mg/dL (8.5-10.1); CREATININE 2.9 mg/dL (0.6-1.0); GFR 15.4; POTASSIUM 4.4 mmol/L (3.5-5.1)
--- NOTE | 2019-02-05 18:10 | CONS ---
DATE OF CONSULTATION: 02/05/2019 REFERRING PHYSICIAN: Vícotr Connelly M.D. REASON FOR CONSULTATION: Leukocytosis. HISTORY OF PRESENT ILLNESS: An 89-year-old female brought to the ER on 02/04/2019 via EMS for abnormal labs. She was found to have a low hemoglobin and hematocrit, is on Coumadin. There was concern about GI bleed with dark stools. The patient also was found to have more confusion recently. The patient is only alert to herself, unable to give any history. History obtained from the chart and from staff. The patient had low hemoglobin with a white count of 23,000. Received 1 unit of packed RBC. The patient had recent surgery done for intertrochanteric fracture earlier this month, at which time, her white count was 18,000. UA showed moderate leukocyte esterase, but WBC of 1-4. The patient had a chest x-ray, which showed no acute infiltrate, large hiatal hernia. The patient remained afebrile. She is currently not on any antibiotics. The patient was supposed to get a Dozier placed, but she is refusing for the same. She says she does not feel good and tired of everything. She is unable to give much details though. PAST MEDICAL HISTORY: Per chart includes peptic ulcer disease, GERD, large hiatal hernia, hypertension, CHF, dementia, osteoarthritis, history of urinary tract infection, history of recent right hip fracture, and history of right shoulder surgery. SOCIAL HISTORY: Quit smoking. No ETOH or illicit drug use. FAMILY HISTORY: Unable to obtain. REVIEW OF SYSTEMS: Unable to obtain. CURRENT MEDICATIONS: Reviewed in the medication list. No antibiotics. PHYSICAL EXAMINATION: VITAL SIGNS: Temperature is 98.3, pulse 80, respiratory rate 18, blood pressure 121/42, and oxygen saturation 96% on room air. GENERAL: Alert and awake to self only, in no acute distress, lying in bed comfortably, and nontoxic appearing. HEENT: Normocephalic, atraumatic, anicteric. No thrush. Oral mucosa is moist. NECK: Supple. No JVD. LUNGS: Clear bilaterally. No wheezing. HEART: S1, S2 with no gallops or murmurs. ABDOMEN: Soft, nontender, nondistended. No rebound, no guarding. EXTREMITIES: No edema. DERMATOLOGIC: Warm, dry. No generalized rash. MUSCULOSKELETAL: The patient did not let me examine her right hip today. PSYCHIATRIC: Confused. NEUROLOGIC: Alert, awake to self. LABORATORY DATA: WBC is 33.8, now today it was 25.4; hemoglobin 7.3, it was 6.5; hematocrit 22.1, and platelets 365, it was 460. Sodium is 138, potassium 5.0, chloride 109, bicarbonate 17, BUN 140, creatinine 3.1, and glucose 133. Lactate is 1.1. LFTs are within normal limits except for albumin at 2.4. UA shows moderate leukocyte esterase, wbc's 1-4. Stool occult blood negative. MICRO: Blood culture, pending. Urine culture, pending. IMAGING: Chest x-ray, large hiatal hernia. No acute infiltrate. IMPRESSION: 1. Leukocytosis, appears to be reactive. No evidence of meningitis or encephalitis on today's exam. UA shows 1-5 wbc's. Chest x-ray, no infiltrate. Afebrile. 2. Anemia, status post 1 packed RBC. 3. Acute kidney injury on chronic kidney disease. 4. Leukocytosis appears to be chronic as on admission earlier this month it was around 18K. 5. Large hiatal hernia with gastroesophageal reflux disease. 6. Coronary artery disease. 7. Dementia. 8. Osteoarthritis. 9. History of recurrent urinary tract infection. Urine culture negative so far. RECOMMENDATIONS: 1. Continue observation off antibiotics. 2. Follow up cultures and lab 3. If the patient is febrile, low threshold to start antibiotics. 4. Continue supportive care. Thank you for allowing me to participate in this patient's care. We will follow along with you. CINDY HARRIS MD DR: ALYSSA/bibiana JOB#: [id number] / [id number]
[2019-02-05] MEDS ORDERED: PANTOPRAZOLE 40 MG TABLET.DR. PO SCH (21:00)
[2019-02-05] MEDS ORDERED: FERROUS SULFATE 325 MG TABLET. PO SCH (21:00)
--- NOTE | 2019-02-05 22:16 | PDOC ---
PROGRESS NOTES Subjective Subjective Problems overnight: About 10 days out from ORIF of a right intertrochanteric hip fracture she has been weightbearing as tolerated and really minimal complaints of pain with the hip. She was admitted for low hemoglobin and transfused Objective Vital Signs Vital Signs Date Time Temp Pulse Resp B/P (MAP) Pulse Ox O2 Delivery O2 Flow Rate FiO2 02/05/19 21:42 98.9 80 16 143/53 98.9 02/05/19 20:00 Room Air 02/05/19 19:59 96 Physical Exam Leg lengths appeared equal she has no pain on bearing weight through an extended extremity good range of motion intact distal neurovascular status and incisions from her hip surgery are well-healed Angel were removed Labs Laboratory Tests Test 02/04/19 20:38 02/04/19 21:00 02/05/19 06:00 02/05/19 10:55 White Blood Count 33.8 x10^3/uL (4.0-11.0) 25.4 x10^3/uL (4.0-11.0) Red Blood Count 2.09 x10^6/uL (3.50-5.40) 2.40 x10^6/uL (3.50-5.40) Hemoglobin 6.5 g/dL (12.0-15.5) 7.3 g/dL (12.0-15.5) Hematocrit 20.0 % (36.0-47.0) 22.1 % (36.0-47.0) Mean Corpuscular Volume 95 fL (79-100) 92 fL (79-100) Mean Corpuscular Hemoglobin 31 pg (25-35) 30 pg (25-35) Mean Corpuscular Hemoglobin Concent 33 g/dL (31-37) 33 g/dL (31-37) Red Cell Distribution Width 14.2 % (11.5-14.5) 16.8 % (11.5-14.5) Platelet Count 460 x10^3/uL (140-400) 365 x10^3/uL (140-400) Neutrophils (%) (Auto) 83 % (31-73) Lymphocytes (%) (Auto) 9 % (24-48) Monocytes (%) (Auto) 7 % (0-9) Eosinophils (%) (Auto) 0 % (0-3) Basophils (%) (Auto) 0 % (0-3) Neutrophils # (Auto) 28.2 x10^3uL (1.8-7.7) Lymphocytes # (Auto) 3.0 x10^3/uL (1.0-4.8) Monocytes # (Auto) 2.4 x10^3/uL (0.0-1.1) Eosinophils # (Auto) 0.0 x10^3/uL (0.0-0.7) Basophils # (Auto) 0.1 x10^3/uL (0.0-0.2) Segmented Neutrophils % 91 % (35-66) Lymphocytes % 8 % (24-48) Basophils % 1 % (0-3) Platelet Estimate Increased (ADEQUATE) Polychromasia Slight Schistocytes Occ Prothrombin Time 37.8 SEC (11.7-14.0) 30.4 SEC (11.7-14.0) Prothromb Time International Ratio 3.8 (0.8-1.1) 2.9 (0.8-1.1) Activated Partial Thromboplast Time 49 SEC (24-38) Sodium Level 135 mmol/L (136-145) 138 mmol/L (136-145) Potassium Level 5.0 mmol/L (3.5-5.1) 5.0 mmol/L (3.5-5.1) Chloride Level 101 mmol/L (98-107) 109 mmol/L (98-107) Carbon Dioxide Level 19 mmol/L (21-32) 17 mmol/L (21-32) Anion Gap 15 (6-14) 12 (6-14) Blood Urea Nitrogen 143 mg/dL (7-20) 140 mg/dL (7-20) Creatinine 2.9 mg/dL (0.6-1.0) 3.1 mg/dL (0.6-1.0) Estimated GFR (Cockcroft-Gault) 15.4 14.2 BUN/Creatinine Ratio 49 (6-20) 45 (6-20) Glucose Level 158 mg/dL (70-99) 133 mg/dL (70-99) Lactic Acid Level 1.1 mmol/L (0.4-2.0) Calcium Level 9.1 mg/dL (8.5-10.1) 8.8 mg/dL (8.5-10.1) Magnesium Level 2.3 mg/dL (1.8-2.4) Total Bilirubin 0.3 mg/dL (0.2-1.0) 0.4 mg/dL (0.2-1.0) Aspartate Amino Transf (AST/SGOT) 12 U/L (15-37) 13 U/L (15-37) Alanine Aminotransferase (ALT/SGPT) 17 U/L (14-59) 13 U/L (14-59) Alkaline Phosphatase 84 U/L (46-116) 68 U/L (46-116) Total Protein 6.7 g/dL (6.4-8.2) 6.2 g/dL (6.4-8.2) Albumin 2.4 g/dL (3.4-5.0) 2.4 g/dL (3.4-5.0) Albumin/Globulin Ratio 0.6 (1.0-1.7) 0.6 (1.0-1.7) Urine Collection Type U cath Urine Color Yellow Urine Clarity Clear Urine pH 5.0 Urine Specific [place] 1.015 Urine Protein Negative mg/dL (NEG-TRACE) Urine Glucose (UA) Negative mg/dL (NEG) Urine Ketones (Stick) Negative mg/dL (NEG) Urine Blood Small (NEG) Urine Nitrite Negative (NEG) Urine Bilirubin Negative (NEG) Urine Urobilinogen Dipstick 0.2 mg/dL (0.2 mg/dL) Urine Leukocyte Esterase Moderate (NEG) Urine RBC 1-2 /HPF (0-2) Urine WBC 1-4 /HPF (0-4) Urine Squamous Epithelial Cells Occ /LPF Urine Bacteria 0 /HPF (0-FEW) Stool Occult Blood Negative (NEG) Nasal Screen MRSA (PCR) Positive (Negative) Test 02/05/19 17:30 White Blood Count 20.0 x10^3/uL (4.0-11.0) Red Blood Count 2.04 x10^6/uL (3.50-5.40) Hemoglobin 6.3 g/dL (12.0-15.5) Hematocrit 18.7 % (36.0-47.0) Mean Corpuscular Volume 92 fL (79-100) Mean Corpuscular Hemoglobin 31 pg (25-35) Mean Corpuscular Hemoglobin Concent 34 g/dL (31-37) Red Cell Distribution Width 17.2 % (11.5-14.5) Platelet Count 321 x10^3/uL (140-400) Prothrombin Time 20.4 SEC (11.7-14.0) Prothromb Time International Ratio 1.8 (0.8-1.1) Sodium Level 141 mmol/L (136-145) Potassium Level 4.4 mmol/L (3.5-5.1) Chloride Level 110 mmol/L (98-107) Carbon Dioxide Level 18 mmol/L (21-32) Anion Gap 13 (6-14) Blood Urea Nitrogen 129 mg/dL (7-20) Creatinine 2.9 mg/dL (0.6-1.0) Estimated GFR (Cockcroft-Gault) 15.4 Glucose Level 126 mg/dL (70-99) Calcium Level 8.7 mg/dL (8.5-10.1) Laboratory Tests Test 02/05/19 06:00 02/05/19 10:55 02/05/19 17:30 Nasal Screen MRSA (PCR) Positive (Negative) White Blood Count 25.4 x10^3/uL (4.0-11.0) 20.0 x10^3/uL (4.0-11.0) Red Blood Count 2.40 x10^6/uL (3.50-5.40) 2.04 x10^6/uL (3.50-5.40) Hemoglobin 7.3 g/dL (12.0-15.5) 6.3 g/dL (12.0-15.5) Hematocrit 22.1 % (36.0-47.0) 18.7 % (36.0-47.0) Mean Corpuscular Volume 92 fL (79-100) 92 fL (79-100) Mean Corpuscular Hemoglobin 30 pg (25-35) 31 pg (25-35) Mean Corpuscular Hemoglobin Concent 33 g/dL (31-37) 34 g/dL (31-37) Red Cell Distribution Width 16.8 % (11.5-14.5) 17.2 % (11.5-14.5) Platelet Count 365 x10^3/uL (140-400) 321 x10^3/uL (140-400) Prothrombin Time 30.4 SEC (11.7-14.0) 20.4 SEC (11.7-14.0) Prothromb Time International Ratio 2.9 (0.8-1.1) 1.8 (0.8-1.1) Sodium Level 138 mmol/L (136-145) 141 mmol/L (136-145) Potassium Level 5.0 mmol/L (3.5-5.1) 4.4 mmol/L (3.5-5.1) Chloride Level 109 mmol/L (98-107) 110 mmol/L (98-107) Carbon Dioxide Level 17 mmol/L (21-32) 18 mmol/L (21-32) Anion Gap 12 (6-14) 13 (6-14) Blood Urea Nitrogen 140 mg/dL (7-20) 129 mg/dL (7-20) Creatinine 3.1 mg/dL (0.6-1.0) 2.9 mg/dL (0.6-1.0) Estimated GFR (Cockcroft-Gault) 14.2 15.4 BUN/Creatinine Ratio 45 (6-20) Glucose Level 133 mg/dL (70-99) 126 mg/dL (70-99) Calcium Level 8.8 mg/dL (8.5-10.1) 8.7 mg/dL (8.5-10.1) Total Bilirubin 0.4 mg/dL (0.2-1.0) Aspartate Amino Transf (AST/SGOT) 13 U/L (15-37) Alanine Aminotransferase (ALT/SGPT) 13 U/L (14-59) Alkaline Phosphatase 68 U/L (46-116) Total Protein 6.2 g/dL (6.4-8.2) Albumin 2.4 g/dL (3.4-5.0) Albumin/Globulin Ratio 0.6 (1.0-1.7) Assessment Assessment History ORIF of right intertrochanteric hip fracture Plan Plan of Care She can continue to weight-bear as tolerated, otherwise supportive medical care, no hip precautions or other restrictions necessary from an orthopedic standpoint IMAN DUNBAR MD Feb 05, 2019 22:16
[2019-02-06 00:30] LABS: HEMATOCRIT 21.2 % (36.0-47.0); HEMOGLOBIN 7.2 g/dL (12.0-15.5); RED BLOOD COUNT 2.33 x10^6/uL (3.50-5.40); RED CELL DISTRIBUTION WIDTH 16.4 % (11.5-14.5)
[2019-02-06 03:58] VITALS: BP 127/55
[2019-02-06] MEDS: IV NORMAL SALINE 1000ML BAG 1,000 ML IV SCH ×2 (05:31→17:35)
[2019-02-06] MEDS: DEXAMETHASONE 0.1% OPHTH SOLUTION 5ML BOTTLE. OS SCH ×5 (05:31→20:47)
[2019-02-06 07:20] VITALS: BP 139/46
[2019-02-06] MEDS: PANTOPRAZOLE 40 MG TABLET.DR. PO SCH (07:42)
[2019-02-06] MEDS: FERROUS SULFATE 325 MG TABLET. PO SCH ×2 (08:52→17:35)
[2019-02-06] MEDS: ACETAMINOPHEN 500 MG TABLET PO SCH ×3 (08:52→20:47)
[2019-02-06] MEDS: MULTIVITAMIN with MINERAL TABLET. PO SCH (08:52)
[2019-02-06] MEDS: ASCORBIC ACID 500 MG TABLET PO SCH ×2 (08:52→20:47)
--- NOTE | 2019-02-06 09:51 | PDOC ---
Subjective: Subjective: Up to recliner with therapy, not sure if she ate breakfast, says hasn't stooled - doesn't want to recline due to right leg pain. Objective: Objective: D/w nurse - supervisor [employer] reports a black loose stool. I called daughter Zenia/SUMAN - relates h/o "bleeding ulcer" and dark tarry stools ~11 years ago in [place]. Would like to pursue EGD. Vital Signs: Vital Signs Date Time Temp Pulse Resp B/P (MAP) Pulse Ox O2 Delivery O2 Flow Rate FiO2 02/06/19 07:58 Room Air 02/06/19 07:20 98.1 84 16 139/46 (77) 96 98.1 Labs: Laboratory Tests Test 02/05/19 10:55 02/05/19 17:30 02/06/19 00:20 White Blood Count 25.4 x10^3/uL 20.0 x10^3/uL 17.0 x10^3/uL Red Blood Count 2.40 x10^6/uL 2.04 x10^6/uL 2.33 x10^6/uL Hemoglobin 7.3 g/dL 6.3 g/dL 7.2 g/dL Hematocrit 22.1 % 18.7 % 21.2 % Mean Corpuscular Volume 92 fL 92 fL 91 fL Mean Corpuscular Hemoglobin 30 pg 31 pg 31 pg Mean Corpuscular Hemoglobin Concent 33 g/dL 34 g/dL 34 g/dL Red Cell Distribution Width 16.8 % 17.2 % 16.4 % Platelet Count 365 x10^3/uL 321 x10^3/uL 290 x10^3/uL Prothrombin Time 30.4 SEC 20.4 SEC Prothromb Time International Ratio 2.9 1.8 Sodium Level 138 mmol/L 141 mmol/L Potassium Level 5.0 mmol/L 4.4 mmol/L Chloride Level 109 mmol/L 110 mmol/L Carbon Dioxide Level 17 mmol/L 18 mmol/L Anion Gap 12 13 Blood Urea Nitrogen 140 mg/dL 129 mg/dL Creatinine 3.1 mg/dL 2.9 mg/dL Estimated GFR (Cockcroft-Gault) 14.2 15.4 BUN/Creatinine Ratio 45 Glucose Level 133 mg/dL 126 mg/dL Calcium Level 8.8 mg/dL 8.7 mg/dL Total Bilirubin 0.4 mg/dL Aspartate Amino Transf (AST/SGOT) 13 U/L Alanine Aminotransferase (ALT/SGPT) 13 U/L Alkaline Phosphatase 68 U/L Total Protein 6.2 g/dL Albumin 2.4 g/dL Albumin/Globulin Ratio 0.6 PE: GEN: NAD, smiling LUNGS: room air HEART: RRR ABD: S/ND/NT NEURO/PSYCH: confused A/P: Anemia, dark stools - Hgb 6-7 range w/ transfusions Coumadin coagulopathy - improved w/ vit K and FFP Leukocytosis (better), GURDEEP/CKD (stable) H/o PUD -- Continue PPI and iron, monitor labs and transfuse as necessary. Will review EGD plans w/ Dr. Shultz. PAOLA KHOURY Feb 06, 2019 09:51
--- NOTE | 2019-02-06 10:29 | PDOC ---
Infectious Disease Note Subjective: Subjective Pt is more alert today says feels ok no f/c/n/v has black tarry stools d/w RN ROS: ROS Negative except for above. Vital Signs: Vital Signs Vital Signs Date Time Temp Pulse Resp B/P (MAP) Pulse Ox O2 Delivery O2 Flow Rate FiO2 02/06/19 07:58 Room Air 02/06/19 07:20 98.1 84 16 139/46 (77) 96 98.1 Physical Exam: PHYSICAL EXAM GENERAL: Alert and awake to self only, in no acute distress, comfortably, and nontoxic appearing.more alert today HEENT: Normocephalic, atraumatic, anicteric. No thrush. Oral mucosa is moist. NECK: Supple. No JVD. LUNGS: Clear bilaterally. No wheezing. HEART: S1, S2 with no gallops or murmurs. ABDOMEN: Soft, nontender, nondistended. No rebound, no guarding. EXTREMITIES: No edema. DERMATOLOGIC: Warm, dry. No generalized rash. MUSCULOSKELETAL:Rt hip dressing dry, intact PSYCHIATRIC: Confused. NEUROLOGIC: Alert, awake to self. Medications: Inpatient Meds: Current Medications Medications (Trade) Dose Ordered Sig/Sen Start Time Stop Time Status Last Admin Dose Admin Acetaminophen (Tylenol) 1,000 mg TID 02/05/19 14:00 02/06/19 08:52 1,000 MG Ascorbic Acid (Vitamin C) 500 mg BID 02/05/19 12:30 02/06/19 08:52 500 MG Dexamethasone (Maxidex) 1 drop Q4HRS W/A 02/05/19 14:00 02/06/19 08:53 1 DROP Ergocalciferol (Vitamin D2) 50,000 unit WEEKLY 02/12/19 09:00 Ferrous Sulfate (Feosol) 325 mg BID 02/05/19 21:00 UNV Multivitamins (Thera M Plus) 1 tab DAILY08 02/05/19 12:30 02/06/19 08:52 1 TAB Pantoprazole Sodium (PROTONIX VIAL for IV PUSH) 80 mg 1X ONCE 02/04/19 22:00 02/04/19 22:11 DC 02/04/19 23:23 80 MG Pantoprazole Sodium (Protonix) 40 mg HS 02/05/19 21:00 UNV Pantoprazole Sodium 80 mg/ Sodium Chloride 100 ml @ 8 mls/hr Q10H 02/04/19 22:30 02/05/19 09:26 DC 02/05/19 08:54 8 MLS/HR Phytonadione (Vitamin K Ampule) 5 mg 1X ONCE 02/04/19 23:00 02/04/19 23:01 DC 02/04/19 23:29 5 MG Sodium Chloride 500 ml @ 500 mls/hr 1X ONCE 02/05/19 12:00 02/05/19 12:59 DC 02/05/19 12:00 500 MLS/HR Labs: Lab Laboratory Tests Test 02/05/19 10:55 02/05/19 17:30 02/06/19 00:20 White Blood Count 25.4 x10^3/uL (4.0-11.0) 20.0 x10^3/uL (4.0-11.0) 17.0 x10^3/uL (4.0-11.0) Red Blood Count 2.40 x10^6/uL (3.50-5.40) 2.04 x10^6/uL (3.50-5.40) 2.33 x10^6/uL (3.50-5.40) Hemoglobin 7.3 g/dL (12.0-15.5) 6.3 g/dL (12.0-15.5) 7.2 g/dL (12.0-15.5) Hematocrit 22.1 % (36.0-47.0) 18.7 % (36.0-47.0) 21.2 % (36.0-47.0) Mean Corpuscular Volume 92 fL (79-100) 92 fL (79-100) 91 fL (79-100) Mean Corpuscular Hemoglobin 30 pg (25-35) 31 pg (25-35) 31 pg (25-35) Mean Corpuscular Hemoglobin Concent 33 g/dL (31-37) 34 g/dL (31-37) 34 g/dL (31-37) Red Cell Distribution Width 16.8 % (11.5-14.5) 17.2 % (11.5-14.5) 16.4 % (11.5-14.5) Platelet Count 365 x10^3/uL (140-400) 321 x10^3/uL (140-400) 290 x10^3/uL (140-400) Prothrombin Time 30.4 SEC (11.7-14.0) 20.4 SEC (11.7-14.0) Prothromb Time International Ratio 2.9 (0.8-1.1) 1.8 (0.8-1.1) Sodium Level 138 mmol/L (136-145) 141 mmol/L (136-145) Potassium Level 5.0 mmol/L (3.5-5.1) 4.4 mmol/L (3.5-5.1) Chloride Level 109 mmol/L (98-107) 110 mmol/L (98-107) Carbon Dioxide Level 17 mmol/L (21-32) 18 mmol/L (21-32) Anion Gap 12 (6-14) 13 (6-14) Blood Urea Nitrogen 140 mg/dL (7-20) 129 mg/dL (7-20) Creatinine 3.1 mg/dL (0.6-1.0) 2.9 mg/dL (0.6-1.0) Estimated GFR (Cockcroft-Gault) 14.2 15.4 BUN/Creatinine Ratio 45 (6-20) Glucose Level 133 mg/dL (70-99) 126 mg/dL (70-99) Calcium Level 8.8 mg/dL (8.5-10.1) 8.7 mg/dL (8.5-10.1) Total Bilirubin 0.4 mg/dL (0.2-1.0) Aspartate Amino Transf (AST/SGOT) 13 U/L (15-37) Alanine Aminotransferase (ALT/SGPT) 13 U/L (14-59) Alkaline Phosphatase 68 U/L (46-116) Total Protein 6.2 g/dL (6.4-8.2) Albumin 2.4 g/dL (3.4-5.0) Albumin/Globulin Ratio 0.6 (1.0-1.7) Objective: Assessment: 1. Leukocytosis, appears to be reactive. No evidence of meningitis or encephalitis on today's exam. UA shows 1-5 wbc's. Chest x-ray, no infiltrate. Afebrile. Leukocytosis appears to be chronic as on admission earlier this month it was around 18K. 2. Anemia, status post 1 packed RBC. 3. Acute kidney injury on chronic kidney disease. 4. Dark tarry stools with h/o PUD 5. Large hiatal hernia with gastroesophageal reflux disease. 6. Coronary artery disease. 7. Dementia. 8. Osteoarthritis. 9. History of recurrent urinary tract infection. Urine culture negative so far. Plan: Plan of Care 1. Continue observation off antibiotics. 2. Follow up cultures and lab 3. If the patient is febrile, low threshold to start antibiotics. 4. Continue supportive care. D/W daughter and granddaughter at bedside D/W CINDY BENJAMIN MD Feb 06, 2019 10:29
[2019-02-06 11:00] VITALS: BP 170/65
--- NOTE | 2019-02-06 11:05 | PDOC ---
SUBJECTIVE ROS Pt is more alert today has black tarry stools OBJECTIVE Vital Signs Vital Signs Date Time Temp Pulse Resp B/P (MAP) Pulse Ox O2 Delivery O2 Flow Rate FiO2 02/06/19 07:58 Room Air 02/06/19 07:20 98.1 84 16 139/46 (77) 96 98.1 I & 0 Intake and Output 02/06/19 07:00 Intake Total 594 ml Output Total 1000 ml Balance -406 ml Intake Oral 50 ml Blood Product IV Normal Saline Flush 544 ml Output Urine Total 1000 ml # Bowel Movements 1 PHYSICAL EXAM Physical Exam GEN: NAD , sitting up in chair , sleeping, arousable HEN: Om moist NECK: Supple CVS: RRR RESP: CTA, No Acc. Muscle Use GI: BS + ve, Non Tender, Non Distended : No CVA tenderness, No Suprapubic Tenderness,wood + Skin - No rash Neuro- dementia, Grossly Normal DIAGNOSIS/ASSESSMENT Assessment & Plan GURDEEP -ATN Baseline Unknown , BUN very High suspect sec to GI bleed /Pre-renal- Improving Renal US -no hydronephrosis ,increased echodensity of the right renal parenchyma also with cortical thinning, may be component of medical renal disease. IVF , Supportive care , Monitor Metabolic acidosis- sec to above CKD - Unknown baseline increased echodensity of the right renal parenchyma also with cortical thinning, may be component of medical renal disease. Rt Cyst - mid right kidney which may be a somewhat complex cyst UTI- per primary Anemia-black tarry stools s/p PRBC ,GI Following Discussed with family COMMENT/RELEVANT DATA Meds Current Medications Medications (Trade) Dose Ordered Sig/Sen Start Time Stop Time Status Last Admin Dose Admin Acetaminophen (Tylenol) 1,000 mg TID 02/05/19 14:00 02/06/19 08:52 1,000 MG Ascorbic Acid (Vitamin C) 500 mg BID 02/05/19 12:30 02/06/19 08:52 500 MG Dexamethasone (Maxidex) 1 drop Q4HRS W/A 02/05/19 14:00 02/06/19 08:53 1 DROP Ergocalciferol (Vitamin D2) 50,000 unit WEEKLY 02/12/19 09:00 Ferrous Sulfate (Feosol) 325 mg BID 02/05/19 21:00 UNV Multivitamins (Thera M Plus) 1 tab DAILY08 02/05/19 12:30 02/06/19 08:52 1 TAB Pantoprazole Sodium (PROTONIX VIAL for IV PUSH) 80 mg 1X ONCE 02/04/19 22:00 02/04/19 22:11 DC 02/04/19 23:23 80 MG Pantoprazole Sodium (Protonix) 40 mg HS 02/05/19 21:00 UNV Pantoprazole Sodium 80 mg/ Sodium Chloride 100 ml @ 8 mls/hr Q10H 02/04/19 22:30 02/05/19 09:26 DC 02/05/19 08:54 8 MLS/HR Phytonadione (Vitamin K Ampule) 5 mg 1X ONCE 02/04/19 23:00 02/04/19 23:01 DC 02/04/19 23:29 5 MG Sodium Chloride 500 ml @ 500 mls/hr 1X ONCE 02/05/19 12:00 02/05/19 12:59 DC 02/05/19 12:00 500 MLS/HR Lab Laboratory Tests Test 02/05/19 17:30 02/06/19 00:20 White Blood Count 20.0 x10^3/uL (4.0-11.0) 17.0 x10^3/uL (4.0-11.0) Red Blood Count 2.04 x10^6/uL (3.50-5.40) 2.33 x10^6/uL (3.50-5.40) Hemoglobin 6.3 g/dL (12.0-15.5) 7.2 g/dL (12.0-15.5) Hematocrit 18.7 % (36.0-47.0) 21.2 % (36.0-47.0) Mean Corpuscular Volume 92 fL (79-100) 91 fL (79-100) Mean Corpuscular Hemoglobin 31 pg (25-35) 31 pg (25-35) Mean Corpuscular Hemoglobin Concent 34 g/dL (31-37) 34 g/dL (31-37) Red Cell Distribution Width 17.2 % (11.5-14.5) 16.4 % (11.5-14.5) Platelet Count 321 x10^3/uL (140-400) 290 x10^3/uL (140-400) Prothrombin Time 20.4 SEC (11.7-14.0) Prothromb Time International Ratio 1.8 (0.8-1.1) Sodium Level 141 mmol/L (136-145) Potassium Level 4.4 mmol/L (3.5-5.1) Chloride Level 110 mmol/L (98-107) Carbon Dioxide Level 18 mmol/L (21-32) Anion Gap 13 (6-14) Blood Urea Nitrogen 129 mg/dL (7-20) Creatinine 2.9 mg/dL (0.6-1.0) Estimated GFR (Cockcroft-Gault) 15.4 Glucose Level 126 mg/dL (70-99) Calcium Level 8.7 mg/dL (8.5-10.1) Results All relevant outside records, renal labs, imaging studies, telemetry/EKG's were reviewed. LOBO HOLT MD Feb 06, 2019 11:04
[2019-02-06 11:39] LABS: HEMATOCRIT 25.4 % (36.0-47.0); HEMOGLOBIN 8.4 g/dL (12.0-15.5); RED BLOOD COUNT 2.73 x10^6/uL (3.50-5.40); RED CELL DISTRIBUTION WIDTH 17.2 % (11.5-14.5)
[2019-02-06 11:59] LABS: ALBUMIN 2.6 g/dL (3.4-5.0); ALBUMIN/GLOBULIN RATIO 0.7 (1.0-1.7); CREATININE 2.4 mg/dL (0.6-1.0); GFR 19.1; POTASSIUM 4.2 mmol/L (3.5-5.1); TOTAL BILIRUBIN 0.5 mg/dL (0.2-1.0); TOTAL PROTEIN 6.5 g/dL (6.4-8.2)
--- NOTE | 2019-02-06 12:30 | PN ---
DATE: 02/06/2019 SUBJECTIVE: The patient is resting, slightly propped up in her recliner, in no apparent distress. Awake, alert, obviously very demented, and confused. The nursing staff did not voice any concern. She continued obviously to refuse lab work and unfortunately, her lab works just drawn just now as of yesterday at midnight, her hemoglobin was 7.2, hematocrit 21.2, and her chemistry as of yesterday showed a BUN of 129 and creatinine 2.9. Today's labs are still pending at the time of this dictation. PHYSICAL EXAMINATION: GENERAL: When I examined her, she looked well, pale, but no jaundice, cyanosis, or thyromegaly. No jugular venous distension. No limb edema. VITAL SIGNS: Her heart rate was 84, blood pressure 139/46, temperature was 98.1, respiratory rate was 16, and oxygen saturation was 96%. HEAD, EYES, EARS, NOSE, AND THROAT: Showed normocephalic, atraumatic. NECK: Supple. HEART: Showed normal first and second heart sounds with no gallop, rub, or murmur. CHEST: Clear to auscultation. No crepitation or rhonchi. ABDOMEN: Distended, soft, nontender. NEUROLOGIC: She is awake, alert, but very confused. However, all cranial nerves intact. She moves upper extremities without difficulty. Her intake and output are incompletely recorded. Her lab work as of yesterday showed a serum sodium of 141, potassium 4.4, chloride 110, bicarbonate 18, anion gap of 13, BUN 129, creatinine 2.9, estimated GFR was 15 mL per minute, her glucose 126, calcium was 8.7. As of yesterday afternoon, her white cell count was 17,000, hemoglobin 7.2, hematocrit 21, MCV 91, and platelet count 290,000. Her prothrombin time as of yesterday was 20.4, INR 1.8. Urinalysis was essentially unremarkable. Her nasal screen for MRSA was positive; however, his stool for occult blood was negative. ASSESSMENT: 1. This is an 89-year-old female patient who was admitted with acute blood loss anemia. She was on Coumadin. Anemia is probably multifactorial. She has a history of peptic ulcer disease, although so far, her stool for occult blood was negative. 2. She has loebu-nr-deawwdw kidney injury. 3. Severe protein calorie malnutrition. 4. Marked leukocytosis without obvious source of infection. She was apparently seen in consultation by the Infectious Disease specialist who recommended to continue observation of antibiotics. Her white cell count is trending down. She was seen also by the orthopedic surgeon, who recommended to continue the weightbearing as tolerated. The plan is to continue with the proton pump inhibitor and iron. Monitor labs and she was seen by Dr. Shultz for the possibility of esophagogastroduodenoscopy tomorrow. BERRY CAMPBELL MD DR: NOE/bibiana JOB#: [id number] / [id number]
[2019-02-06 12:53] LABS: HEMATOCRIT 24.5 % (36.0-47.0); HEMOGLOBIN 8.1 g/dL (12.0-15.5); RED BLOOD COUNT 2.65 x10^6/uL (3.50-5.40); RED CELL DISTRIBUTION WIDTH 16.7 % (11.5-14.5); WHITE BLOOD COUNT 15.7 x10^3/uL (4.0-11.0)
[2019-02-06 12:59] LABS: CALCIUM 8.9 mg/dL (8.5-10.1); CREATININE 2.4 mg/dL (0.6-1.0); GFR 19.1; POTASSIUM 4.3 mmol/L (3.5-5.1)
[2019-02-06 13:04] LABS: PROTHROMBIN TIME PATIENT 16.3 SEC (11.7-14.0)
[2019-02-06 15:27] VITALS: BP 162/69
[2019-02-06 19:06] LABS: HEMATOCRIT 24.1 % (36.0-47.0); RED BLOOD COUNT 2.6 x10^6/uL (3.50-5.40); RED CELL DISTRIBUTION WIDTH 16.7 % (11.5-14.5); WHITE BLOOD COUNT 16.5 x10^3/uL (4.0-11.0)
[2019-02-06 19:17] LABS: CALCIUM 8.7 mg/dL (8.5-10.1); CREATININE 2.2 mg/dL (0.6-1.0); GFR 21.1; POTASSIUM 3.6 mmol/L (3.5-5.1)
[2019-02-06 19:17] LABS: PROTHROMBIN TIME PATIENT 17.5 SEC (11.7-14.0)
[2019-02-06 19:59] VITALS: BP 155/72
[2019-02-06 23:00] VITALS: BP 161/59
[2019-02-07] MEDS: IV NORMAL SALINE 1000ML BAG 1,000 ML IV SCH (03:15)
[2019-02-07 03:30] VITALS: BP 173/71
[2019-02-07] MEDS: DEXAMETHASONE 0.1% OPHTH SOLUTION 5ML BOTTLE. OS SCH ×5 (05:03→21:40)
[2019-02-07] MEDS ORDERED: fentaNYL PF VIAL 100 MCG/2 ML VIAL IV PRN ×4 (06:15→07:00)
[2019-02-07] MEDS ORDERED: MIDAZOLAM HCL/PF 2 MG/2 ML VIAL. IV PRN (06:15)
[2019-02-07] MEDS ORDERED: LIDOCAINE 1% PF 2 ML VIAL. ID PRN ×2 (06:15→07:00)
[2019-02-07] MEDS ORDERED: IV RINGERS,LACTATED 1000ML 1,000 ML IV SCH ×2 (06:15→07:00)
[2019-02-07] MEDS ORDERED: HYDROmorphone 2 MG/ML VIAL IV PRN (07:00)
[2019-02-07] MEDS ORDERED: PROCHLORPERAZINE 10 MG/2 ML VIAL. IV PRN (07:00)
[2019-02-07] MEDS ORDERED: MORPHINE SULFATE 2 MG/ML VIAL. IV PRN (07:00)
[2019-02-07] MEDS ORDERED: ONDANSETRON PF 4 MG/2 ML VIAL. IV PRN (07:00)
[2019-02-07 07:10] VITALS: BP 171/72
[2019-02-07] MEDS: PANTOPRAZOLE 40 MG TABLET.DR. PO SCH (07:30)
[2019-02-07] MEDS: ASCORBIC ACID 500 MG TABLET PO SCH ×2 (07:39→21:37)
[2019-02-07] MEDS: FERROUS SULFATE 325 MG TABLET. PO SCH ×2 (07:39→18:34)
[2019-02-07] MEDS: ACETAMINOPHEN 500 MG TABLET PO SCH ×3 (07:39→21:00)
[2019-02-07] MEDS: MULTIVITAMIN with MINERAL TABLET. PO SCH (07:39)
[2019-02-07] MEDS ORDERED: PROPOFOL 20 ML IV ONE (08:26)
[2019-02-07] MEDS ORDERED: LIDOCAINE 2% PF 5 ML VIAL. ONE (08:26)
--- NOTE | 2019-02-07 08:48 | PDOC4 ---
Operative Note Operative Note EGD Meds propofol per anesthesia Pre-op dx acute blood loss anemia Post-op dx non-erosive gastritis hiatal hernia Plan medical therapy for anemia with iron supplements in view of dementia and comorbidities KATHRIN BRAVO MD Feb 07, 2019 08:48
--- NOTE | 2019-02-07 09:51 | PDOC ---
Infectious Disease Note Subjective: Subjective Pt underwent egd today says feels ok no f/c/n/v d/w RN ROS: ROS Negative except for above. Vital Signs: Vital Signs Vital Signs Date Time Temp Pulse Resp B/P (MAP) Pulse Ox O2 Delivery O2 Flow Rate FiO2 02/07/19 08:58 93 20 166/78 97 Room Air 02/07/19 08:50 97.2 97.2 Physical Exam: PHYSICAL EXAM GENERAL: Alert and awake to self only, in no acute distress, comfortably, and nontoxic appearing.more alert today HEENT: Normocephalic, atraumatic, anicteric. No thrush. Oral mucosa is moist. NECK: Supple. No JVD. LUNGS: Clear bilaterally. No wheezing. HEART: S1, S2 with no gallops or murmurs. ABDOMEN: Soft, nontender, nondistended. No rebound, no guarding. EXTREMITIES: No edema. DERMATOLOGIC: Warm, dry. No generalized rash. MUSCULOSKELETAL:Rt hip dressing dry, intact PSYCHIATRIC: Confused. NEUROLOGIC: Alert, awake to self. Medications: Inpatient Meds: Current Medications Medications (Trade) Dose Ordered Sig/Sen Start Time Stop Time Status Last Admin Dose Admin Acetaminophen (Tylenol) 1,000 mg TID 02/05/19 14:00 02/06/19 20:47 1,000 MG Ascorbic Acid (Vitamin C) 500 mg BID 02/05/19 12:30 02/06/19 20:47 500 MG Dexamethasone (Maxidex) 1 drop Q4HRS W/A 02/05/19 14:00 02/06/19 20:47 1 DROP Ergocalciferol (Vitamin D2) 50,000 unit WEEKLY 02/12/19 09:00 Fentanyl Citrate (Fentanyl 2ml Vial) 50 mcg PRN Q5MIN PRN 02/07/19 06:15 02/08/19 06:14 Ferrous Sulfate (Feosol) 325 mg BID 02/05/19 21:00 UNV Hydromorphone HCl (Dilaudid) 0.5 mg PRN Q10MIN PRN 02/07/19 07:00 02/08/19 06:59 Lidocaine HCl (Lidocaine Pf 2% Vial) 5 ml STK-MED ONCE 02/07/19 08:26 02/07/19 08:27 DC Lidocaine HCl (Xylocaine-Mpf 1% 2ml Vial) 2 ml 1X PRN PRN 02/07/19 06:15 02/08/19 06:14 Midazolam HCl (Versed) 2 mg PRN 1X PRN 02/07/19 06:15 02/08/19 06:14 Morphine Sulfate (Morphine Sulfate) 1 mg PRN Q10MIN PRN 02/07/19 07:00 02/08/19 06:59 Multivitamins (Thera M Plus) 1 tab DAILY08 02/05/19 12:30 02/06/19 08:52 1 TAB Ondansetron HCl (Zofran) 4 mg PRN Q6HRS PRN 02/07/19 07:00 02/08/19 06:59 Pantoprazole Sodium (PROTONIX VIAL for IV PUSH) 80 mg 1X ONCE 02/04/19 22:00 02/04/19 22:11 DC 02/04/19 23:23 80 MG Pantoprazole Sodium (Protonix) 40 mg HS 02/05/19 21:00 UNV Pantoprazole Sodium 80 mg/ Sodium Chloride 100 ml @ 8 mls/hr Q10H 02/04/19 22:30 02/05/19 09:26 DC 02/05/19 08:54 8 MLS/HR Phytonadione (Vitamin K Ampule) 5 mg 1X ONCE 02/04/19 23:00 02/04/19 23:01 DC 02/04/19 23:29 5 MG Prochlorperazine Edisylate (Compazine) 5 mg PACU PRN PRN 02/07/19 07:00 02/08/19 06:59 Propofol 20 ml @ As Directed STK-MED ONCE 02/07/19 08:26 02/07/19 08:27 DC Ringer's Solution 1,000 ml @ 125 mls/hr Q8H 02/07/19 06:15 02/07/19 06:18 DC Sodium Chloride 500 ml @ 500 mls/hr 1X ONCE 02/05/19 12:00 02/05/19 12:59 DC 02/05/19 12:00 500 MLS/HR Labs: Lab Laboratory Tests Test 02/06/19 10:09 02/06/19 10:59 02/06/19 12:30 02/06/19 18:15 White Blood Count 16.0 x10^3/uL (4.0-11.0) 15.7 x10^3/uL (4.0-11.0) Red Blood Count 2.73 x10^6/uL (3.50-5.40) 2.65 x10^6/uL (3.50-5.40) Hemoglobin 8.4 g/dL (12.0-15.5) 8.1 g/dL (12.0-15.5) Hematocrit 25.4 % (36.0-47.0) 24.5 % (36.0-47.0) Mean Corpuscular Volume 93 fL (79-100) 93 fL (79-100) Mean Corpuscular Hemoglobin 31 pg (25-35) 31 pg (25-35) Mean Corpuscular Hemoglobin Concent 33 g/dL (31-37) 33 g/dL (31-37) Red Cell Distribution Width 17.2 % (11.5-14.5) 16.7 % (11.5-14.5) Platelet Count 358 x10^3/uL (140-400) 345 x10^3/uL (140-400) Prothrombin Time 17.0 SEC (11.7-14.0) 16.3 SEC (11.7-14.0) Prothromb Time International Ratio 1.4 (0.8-1.1) 1.3 (0.8-1.1) Sodium Level 145 mmol/L (136-145) 145 mmol/L (136-145) 145 mmol/L (136-145) Potassium Level 4.2 mmol/L (3.5-5.1) 4.3 mmol/L (3.5-5.1) 3.6 mmol/L (3.5-5.1) Chloride Level 114 mmol/L (98-107) 114 mmol/L (98-107) 115 mmol/L (98-107) Carbon Dioxide Level 20 mmol/L (21-32) 17 mmol/L (21-32) 19 mmol/L (21-32) Anion Gap 11 (6-14) 14 (6-14) 11 (6-14) Blood Urea Nitrogen 98 mg/dL (7-20) 93 mg/dL (7-20) 81 mg/dL (7-20) Creatinine 2.4 mg/dL (0.6-1.0) 2.4 mg/dL (0.6-1.0) 2.2 mg/dL (0.6-1.0) Estimated GFR (Cockcroft-Gault) 19.1 19.1 21.1 BUN/Creatinine Ratio 41 (6-20) Glucose Level 108 mg/dL (70-99) 164 mg/dL (70-99) 151 mg/dL (70-99) Calcium Level 9.0 mg/dL (8.5-10.1) 8.9 mg/dL (8.5-10.1) 8.7 mg/dL (8.5-10.1) Total Bilirubin 0.5 mg/dL (0.2-1.0) Aspartate Amino Transf (AST/SGOT) 15 U/L (15-37) Alanine Aminotransferase (ALT/SGPT) 17 U/L (14-59) Alkaline Phosphatase 76 U/L (46-116) Total Protein 6.5 g/dL (6.4-8.2) Albumin 2.6 g/dL (3.4-5.0) Albumin/Globulin Ratio 0.7 (1.0-1.7) Test 02/06/19 18:20 White Blood Count 16.5 x10^3/uL (4.0-11.0) Red Blood Count 2.60 x10^6/uL (3.50-5.40) Hemoglobin 8.0 g/dL (12.0-15.5) Hematocrit 24.1 % (36.0-47.0) Mean Corpuscular Volume 93 fL (79-100) Mean Corpuscular Hemoglobin 31 pg (25-35) Mean Corpuscular Hemoglobin Concent 33 g/dL (31-37) Red Cell Distribution Width 16.7 % (11.5-14.5) Platelet Count 365 x10^3/uL (140-400) Prothrombin Time 17.5 SEC (11.7-14.0) Prothromb Time International Ratio 1.5 (0.8-1.1) Objective: Assessment: 1. Leukocytosis, appears to be reactive. No evidence of meningitis or encephalitis on today's exam. UA shows 1-5 wbc's. Chest x-ray, no infiltrate. Afebrile. Leukocytosis appears to be chronic as on admission earlier this month it was around 18K. 2. Anemia, status post 1 packed RBC. 3. Acute kidney injury on chronic kidney disease. 4. Dark tarry stools with h/o PUD ;s/p EGD nonerosive gastritis 5. Large hiatal hernia with gastroesophageal reflux disease. 6. Coronary artery disease. 7. Dementia. 8. Osteoarthritis. 9. History of recurrent urinary tract infection. Urine culture negative so far. Plan: Plan of Care 1. Continue observation off antibiotics. 2. Follow up cultures and lab 3. Maintain aspiration precautions 4. Continue supportive care. D/W daughter and granddaughter at bedside D/W CINDY BENJAMIN MD Feb 07, 2019 09:51
--- NOTE | 2019-02-07 09:58 | PDOC ---
IM PROGRESS NOTES- Subjective Subjective None Objective Vitals/I&O Vital Signs Date Time Temp Pulse Resp B/P (MAP) Pulse Ox O2 Delivery O2 Flow Rate FiO2 02/07/19 08:58 93 20 166/78 97 Room Air 02/07/19 08:50 97.2 97.2 I & O 02/06/19 02/06/19 02/07/19 15:00 23:00 07:00 Intake Total 250 ml 1150 ml 50 ml Output Total 750 ml 300 ml 1150 ml Balance -500 ml 850 ml -1100 ml Physical Exam Physical Exam General appearance - alert,ill appearing, and in no distress and oriented to person, place, and time Mental Status - alert, oriented to person, place, and time, affect appropriate to mood Head - normal Chest - clear to auscultation, no wheezes, rales or rhonchi, symmetric air entry Heart - S1 and S2 normal Abdomen - soft, nontender, nondistended, no masses or organomegaly Neurological - alert and oriented Musculoskeletal - no muscular tenderness noted Extremities - no pedal edema Skin - warm and dry Labs Laboratory Tests Test 02/06/19 10:09 02/06/19 10:59 02/06/19 12:30 02/06/19 18:15 White Blood Count 16.0 x10^3/uL (4.0-11.0) H 15.7 x10^3/uL (4.0-11.0) H Red Blood Count 2.73 x10^6/uL (3.50-5.40) L 2.65 x10^6/uL (3.50-5.40) L Hemoglobin 8.4 g/dL (12.0-15.5) L 8.1 g/dL (12.0-15.5) L Hematocrit 25.4 % (36.0-47.0) L 24.5 % (36.0-47.0) L Mean Corpuscular Volume 93 fL (79-100) 93 fL (79-100) Mean Corpuscular Hemoglobin 31 pg (25-35) 31 pg (25-35) Mean Corpuscular Hemoglobin Concent 33 g/dL (31-37) 33 g/dL (31-37) Red Cell Distribution Width 17.2 % (11.5-14.5) H 16.7 % (11.5-14.5) H Platelet Count 358 x10^3/uL (140-400) 345 x10^3/uL (140-400) Prothrombin Time 17.0 SEC (11.7-14.0) H 16.3 SEC (11.7-14.0) H Prothrombin Time INR 1.4 (0.8-1.1) H 1.3 (0.8-1.1) H Sodium Level 145 mmol/L (136-145) 145 mmol/L (136-145) 145 mmol/L (136-145) Potassium Level 4.2 mmol/L (3.5-5.1) 4.3 mmol/L (3.5-5.1) 3.6 mmol/L (3.5-5.1) Chloride Level 114 mmol/L (98-107) H 114 mmol/L (98-107) H 115 mmol/L (98-107) H Carbon Dioxide Level 20 mmol/L (21-32) L 17 mmol/L (21-32) L 19 mmol/L (21-32) L Anion Gap 11 (6-14) 14 (6-14) 11 (6-14) Blood Urea Nitrogen 98 mg/dL (7-20) H 93 mg/dL (7-20) H 81 mg/dL (7-20) H Creatinine 2.4 mg/dL (0.6-1.0) H 2.4 mg/dL (0.6-1.0) H 2.2 mg/dL (0.6-1.0) H Estimated GFR (Cockcroft-Gault) 19.1 19.1 21.1 BUN/Creatinine Ratio 41 (6-20) H Glucose Level 108 mg/dL (70-99) H 164 mg/dL (70-99) H 151 mg/dL (70-99) H Calcium Level 9.0 mg/dL (8.5-10.1) 8.9 mg/dL (8.5-10.1) 8.7 mg/dL (8.5-10.1) Total Bilirubin 0.5 mg/dL (0.2-1.0) Aspartate Amino Transferase (AST) 15 U/L (15-37) Alanine Aminotransferase (ALT) 17 U/L (14-59) Alkaline Phosphatase 76 U/L (46-116) Total Protein 6.5 g/dL (6.4-8.2) Albumin 2.6 g/dL (3.4-5.0) L Albumin/Globulin Ratio 0.7 (1.0-1.7) L Test 02/06/19 18:20 White Blood Count 16.5 x10^3/uL (4.0-11.0) H Red Blood Count 2.60 x10^6/uL (3.50-5.40) L Hemoglobin 8.0 g/dL (12.0-15.5) L Hematocrit 24.1 % (36.0-47.0) L Mean Corpuscular Volume 93 fL (79-100) Mean Corpuscular Hemoglobin 31 pg (25-35) Mean Corpuscular Hemoglobin Concent 33 g/dL (31-37) Red Cell Distribution Width 16.7 % (11.5-14.5) H Platelet Count 365 x10^3/uL (140-400) Prothrombin Time 17.5 SEC (11.7-14.0) H Prothrombin Time INR 1.5 (0.8-1.1) H Laboratory Tests 02/06/19 10:09 02/06/19 12:30 02/06/19 18:20 Laboratory Tests 02/06/19 10:59 02/06/19 12:30 02/06/19 18:15 Assessment Assessment 1. This is an 89-year-old female patient who was admitted with acute blood loss anemia. She was on Coumadin. Anemia is probably multifactorial. She has a history of peptic ulcer disease, although so far, her stool for occult blood was negative. 2. She has [id number] kidney injury. BUN is 81 and creatinine 2.2. 3. Severe protein calorie malnutrition. 4. Leukocytosis is reactive. Plan continue IV fluids. Potassium is 3.6 I will add the potassium chloride to each liter of IV fluids. Patient is still nothing by mouth. Diet - advance to soft diet.Decrease IV fluids. Hypertension- not controlled. Add IV hydralazine when necessary. D/w family at bedside. Plan Plan For more details regarding further plans, please refer to the orders. LINETTE BURKS MD Feb 07, 2019 09:57
[2019-02-07] MEDS ORDERED: POTASSIUM CHLORIDE 20 MEQ in IV NORMAL SALINE 1000ML BAG 1,000 ML IV SCH (10:00)
--- NOTE | 2019-02-07 11:13 | NUR ---
SW faxed updates to [facility] and anticipate dc back to facility tomorrow.
[2019-02-07 11:39] VITALS: BP 163/63
[2019-02-07 13:13] LABS: PROTHROMBIN TIME PATIENT 16.3 SEC (11.7-14.0)
--- NOTE | 2019-02-07 13:45 | PDOC ---
SUBJECTIVE ROS S/P EGD this am OBJECTIVE Vital Signs Vital Signs Date Time Temp Pulse Resp B/P (MAP) Pulse Ox O2 Delivery O2 Flow Rate FiO2 02/07/19 11:39 98.5 99 16 163/63 (96) 97 Room Air 98.5 I & 0 Intake and Output 02/07/19 06:59 Intake Total 1450 ml Output Total 2200 ml Balance -750 ml Intake Oral 450 ml IV Total 1000 ml Output Urine Total 2200 ml PHYSICAL EXAM Physical Exam GEN: NAD , HEN: Om moist NECK: Supple CVS: RRR RESP: CTA, No Acc. Muscle Use GI: BS + ve, Non Tender, Non Distended : No CVA tenderness, No Suprapubic Tenderness,wood + Skin - No rash Neuro- dementia, Grossly Normal DIAGNOSIS/ASSESSMENT Assessment & Plan GURDEEP -ATN Baseline Unknown , BUN very High suspect sec to GI bleed /Pre-renal- Improving Renal US -no hydronephrosis ,increased echodensity of the right renal parenchyma also with cortical thinning, may be component of medical renal disease. IVF , Supportive care , Monitor Metabolic acidosis- sec to above CKD - Unknown baseline increased echodensity of the right renal parenchyma also with cortical thinning, may be component of medical renal disease. Rt Cyst - mid right kidney which may be a somewhat complex cyst UTI- per primary Anemia-black tarry stools Recd PRBC s/p EGD 02/07 - nonerosive gastritis, arge hiatal hernia with GERD COMMENT/RELEVANT DATA Meds Current Medications Medications (Trade) Dose Ordered Sig/Sen Start Time Stop Time Status Last Admin Dose Admin Acetaminophen (Tylenol) 1,000 mg TID 02/05/19 14:00 02/06/19 20:47 1,000 MG Ascorbic Acid (Vitamin C) 500 mg BID 02/05/19 12:30 02/06/19 20:47 500 MG Dexamethasone (Maxidex) 1 drop Q4HRS W/A 02/05/19 14:00 02/07/19 10:30 1 DROP Ergocalciferol (Vitamin D2) 50,000 unit WEEKLY 02/12/19 09:00 Fentanyl Citrate (Fentanyl 2ml Vial) 50 mcg PRN Q5MIN PRN 02/07/19 06:15 02/08/19 06:14 Ferrous Sulfate (Feosol) 325 mg BID 02/05/19 21:00 UNV Hydralazine HCl (Apresoline Inj) 10 mg PRN Q4HRS PRN 02/07/19 10:00 Hydromorphone HCl (Dilaudid) 0.5 mg PRN Q10MIN PRN 02/07/19 07:00 02/08/19 06:59 Lidocaine HCl (Lidocaine Pf 2% Vial) 5 ml STK-MED ONCE 02/07/19 08:26 02/07/19 08:27 DC Lidocaine HCl (Xylocaine-Mpf 1% 2ml Vial) 2 ml 1X PRN PRN 02/07/19 06:15 02/08/19 06:14 Midazolam HCl (Versed) 2 mg PRN 1X PRN 02/07/19 06:15 02/08/19 06:14 Morphine Sulfate (Morphine Sulfate) 1 mg PRN Q10MIN PRN 02/07/19 07:00 02/08/19 06:59 Multivitamins (Thera M Plus) 1 tab DAILY08 02/05/19 12:30 02/06/19 08:52 1 TAB Ondansetron HCl (Zofran) 4 mg PRN Q6HRS PRN 02/07/19 07:00 02/08/19 06:59 Pantoprazole Sodium (PROTONIX VIAL for IV PUSH) 80 mg 1X ONCE 02/04/19 22:00 02/04/19 22:11 DC 02/04/19 23:23 80 MG Pantoprazole Sodium (Protonix) 40 mg HS 02/05/19 21:00 UNV Pantoprazole Sodium 80 mg/ Sodium Chloride 100 ml @ 8 mls/hr Q10H 02/04/19 22:30 02/05/19 09:26 DC 02/05/19 08:54 8 MLS/HR Phytonadione (Vitamin K Ampule) 5 mg 1X ONCE 02/04/19 23:00 02/04/19 23:01 DC 02/04/19 23:29 5 MG Potassium Chloride 20 meq/ Sodium Chloride 1,010 ml @ 100 mls/hr Q10H6M 02/07/19 10:00 UNV Potassium Chloride/Sodium Chloride 1,000 ml @ 60 mls/hr [id number] 02/07/19 10:00 02/07/19 10:00 60 MLS/HR Prochlorperazine Edisylate (Compazine) 5 mg PACU PRN PRN 02/07/19 07:00 02/08/19 06:59 Propofol 20 ml @ As Directed STK-MED ONCE 02/07/19 08:26 02/07/19 08:27 DC Ringer's Solution 1,000 ml @ 125 mls/hr Q8H 02/07/19 06:15 02/07/19 06:18 DC Sodium Chloride 500 ml @ 500 mls/hr 1X ONCE 02/05/19 12:00 02/05/19 12:59 DC 02/05/19 12:00 500 MLS/HR Lab Laboratory Tests Test 02/06/19 18:15 02/06/19 18:20 02/07/19 12:25 Sodium Level 145 mmol/L (136-145) Potassium Level 3.6 mmol/L (3.5-5.1) Chloride Level 115 mmol/L (98-107) Carbon Dioxide Level 19 mmol/L (21-32) Anion Gap 11 (6-14) Blood Urea Nitrogen 81 mg/dL (7-20) Creatinine 2.2 mg/dL (0.6-1.0) Estimated GFR (Cockcroft-Gault) 21.1 Glucose Level 151 mg/dL (70-99) Calcium Level 8.7 mg/dL (8.5-10.1) White Blood Count 16.5 x10^3/uL (4.0-11.0) Red Blood Count 2.60 x10^6/uL (3.50-5.40) Hemoglobin 8.0 g/dL (12.0-15.5) Hematocrit 24.1 % (36.0-47.0) Mean Corpuscular Volume 93 fL (79-100) Mean Corpuscular Hemoglobin 31 pg (25-35) Mean Corpuscular Hemoglobin Concent 33 g/dL (31-37) Red Cell Distribution Width 16.7 % (11.5-14.5) Platelet Count 365 x10^3/uL (140-400) Prothrombin Time 17.5 SEC (11.7-14.0) 16.3 SEC (11.7-14.0) Prothromb Time International Ratio 1.5 (0.8-1.1) 1.3 (0.8-1.1) Results All relevant outside records, renal labs, imaging studies, telemetry/EKG's were reviewed. LOBO HOLT MD Feb 07, 2019 13:45
--- NOTE | 2019-02-07 14:32 | NUR ---
Pt family states there should be a DNR on file. Chart shows Full Code. Will discuss w/ Dr. Connelly. and proceed accordingly.
[2019-02-07 15:00] VITALS: BP 173/62
[2019-02-07 19:17] LABS: CALCIUM 8.7 mg/dL (8.5-10.1); CREATININE 1.8 mg/dL (0.6-1.0); GFR 26.6; POTASSIUM 4.1 mmol/L (3.5-5.1)
[2019-02-07 19:25] VITALS: BP 167/80
[2019-02-07 19:25] LABS: PROTHROMBIN TIME PATIENT 15.9 SEC (11.7-14.0)
[2019-02-07] MEDS: HYDROcodone/APAP 5/325MG 1 TAB TABLET PO PRN (21:36)
[2019-02-07 23:25] VITALS: BP 180/81
[2019-02-07] MEDS: hydrALAZINE 20 MG/ML VIAL. IVP PRN (23:30)
[2019-02-08] VITALS (7 sets, daily range): BP systolic 140–170; BP diastolic 58–70
[2019-02-08] MEDS: HYDROcodone/APAP 5/325MG 1 TAB TABLET PO PRN ×2 (01:43→05:42)
[2019-02-08 05:13] LABS: BASO # 0.1 x10^3/uL (0.0-0.2); BASO % 1 % (0-3); EOS # 0.2 x10^3/uL (0.0-0.7); EOS % 1 % (0-3); HEMATOCRIT 24.6 % (36.0-47.0); HEMOGLOBIN 8.1 g/dL (12.0-15.5); LYMPH # 2.2 x10^3/uL (1.0-4.8); LYMPH % 13 % (24-48); MEAN CORPUSCULAR HEMOGLOBIN 31 pg (25-35); MEAN CORPUSCULAR HGB CONC 33 g/dL (31-37); MEAN CORPUSCULAR VOLUME 94 fL (79-100); MONO # 1.6 x10^3/uL (0.0-1.1); MONO % 10 % (0-9); NEUT # 12.6 x10^3/uL (1.8-7.7); NEUT % 76 % (31-73); PLATELET COUNT 379 x10^3/uL (140-400); RED BLOOD COUNT 2.62 x10^6/uL (3.50-5.40); RED CELL DISTRIBUTION WIDTH 16.8 % (11.5-14.5); WHITE BLOOD COUNT 16.7 x10^3/uL (4.0-11.0)
[2019-02-08 05:30] LABS: CALCIUM 8.8 mg/dL (8.5-10.1); CREATININE 1.6 mg/dL (0.6-1.0); GFR 30.5; POTASSIUM 4.1 mmol/L (3.5-5.1)
[2019-02-08 05:36] LABS: PROTHROMBIN TIME PATIENT 15.6 SEC (11.7-14.0)
[2019-02-08] MEDS: DEXAMETHASONE 0.1% OPHTH SOLUTION 5ML BOTTLE. OS SCH ×5 (05:43→22:00)
[2019-02-08] MEDS: ACETAMINOPHEN 500 MG TABLET PO SCH ×3 (09:00→22:14)
[2019-02-08] MEDS: MULTIVITAMIN with MINERAL TABLET. PO SCH (10:38)
[2019-02-08] MEDS: FERROUS SULFATE 325 MG TABLET. PO SCH ×2 (10:38→18:28)
[2019-02-08] MEDS: ASCORBIC ACID 500 MG TABLET PO SCH ×2 (10:38→22:14)
[2019-02-08] MEDS: PANTOPRAZOLE 40 MG TABLET.DR. PO SCH (10:38)
--- NOTE | 2019-02-08 10:53 | PDOC ---
Infectious Disease Note Subjective Subjective No concerns voiced by daughter Remains afebrile Vital Sign Vital Signs Vital Signs Date Time Temp Pulse Resp B/P (MAP) Pulse Ox O2 Delivery O2 Flow Rate FiO2 02/08/19 07:00 98.3 83 18 161/60 (93) 97 Room Air 98.3 Physical Exam PHYSICAL EXAM GENERAL: Propped up in bed, alert, NAD HEENT: Oral mucosa is moist. LUNGS: Clear bilaterally. HEART: S1, S2 ABDOMEN: Soft, nontender, nondistended. no guarding. : Dozier EXTREMITIES: No edema. Right hip incision well-approx, adin. No redness or drainage DERMATOLOGIC: Warm, dry. No generalized rash. NEUROLOGIC: Alert, quiet Labs Lab Laboratory Tests Test 02/07/19 12:25 02/07/19 18:00 02/08/19 03:35 Prothrombin Time 16.3 SEC (11.7-14.0) 15.9 SEC (11.7-14.0) 15.6 SEC (11.7-14.0) Prothromb Time International Ratio 1.3 (0.8-1.1) 1.3 (0.8-1.1) 1.3 (0.8-1.1) Sodium Level 144 mmol/L (136-145) 147 mmol/L (136-145) Potassium Level 4.1 mmol/L (3.5-5.1) 4.1 mmol/L (3.5-5.1) Chloride Level 113 mmol/L (98-107) 116 mmol/L (98-107) Carbon Dioxide Level 18 mmol/L (21-32) 17 mmol/L (21-32) Anion Gap 13 (6-14) 14 (6-14) Blood Urea Nitrogen 47 mg/dL (7-20) 39 mg/dL (7-20) Creatinine 1.8 mg/dL (0.6-1.0) 1.6 mg/dL (0.6-1.0) Estimated GFR (Cockcroft-Gault) 26.6 30.5 Glucose Level 173 mg/dL (70-99) 114 mg/dL (70-99) Calcium Level 8.7 mg/dL (8.5-10.1) 8.8 mg/dL (8.5-10.1) White Blood Count 16.7 x10^3/uL (4.0-11.0) Red Blood Count 2.62 x10^6/uL (3.50-5.40) Hemoglobin 8.1 g/dL (12.0-15.5) Hematocrit 24.6 % (36.0-47.0) Mean Corpuscular Volume 94 fL (79-100) Mean Corpuscular Hemoglobin 31 pg (25-35) Mean Corpuscular Hemoglobin Concent 33 g/dL (31-37) Red Cell Distribution Width 16.8 % (11.5-14.5) Platelet Count 379 x10^3/uL (140-400) Neutrophils (%) (Auto) 76 % (31-73) Lymphocytes (%) (Auto) 13 % (24-48) Monocytes (%) (Auto) 10 % (0-9) Eosinophils (%) (Auto) 1 % (0-3) Basophils (%) (Auto) 1 % (0-3) Neutrophils # (Auto) 12.6 x10^3/uL (1.8-7.7) Lymphocytes # (Auto) 2.2 x10^3/uL (1.0-4.8) Monocytes # (Auto) 1.6 x10^3/uL (0.0-1.1) Eosinophils # (Auto) 0.2 x10^3/uL (0.0-0.7) Basophils # (Auto) 0.1 x10^3/uL (0.0-0.2) Micro Microbiology 02/04/19 Blood Culture - Preliminary, Resulted NO GROWTH AFTER 3 DAYS Objective Assessment 1. Leukocytosis, appears to be reactive. stable 2. Anemia, status post 1 packed RBC. 3. Acute kidney injury on chronic kidney disease. 4. Dark tarry stools with h/o PUD ;s/p EGD nonerosive gastritis 5. Large hiatal hernia with gastroesophageal reflux disease. 6. Coronary artery disease. 7. Dementia. 8. Osteoarthritis. 9. History of recurrent urinary tract infection. 10. s/p closed reduction and IM nailing of right hip fracture, 01/27 Plan Plan of Care Continue observation off antibiotics. BC neg to date Maintain aspiration precautions Supportive care. D/W daughter and granddaughter at bedside Feeling better today compared to yesterday Attending Co-Sign Attending Co-Sign The patient was seen and interviewed as well as examined at the bedside. The chart was reviewed. The case was discussed. Agree with the plan of care. JIMMY CHARLES APRN Feb 08, 2019 10:53 ATIYA PALOMO MD Feb 08, 2019 14:35
--- NOTE | 2019-02-08 11:21 | PDOC ---
IM PROGRESS NOTES- Subjective Subjective None Objective Vitals/I&O Vital Signs Date Time Temp Pulse Resp B/P (MAP) Pulse Ox O2 Delivery O2 Flow Rate FiO2 02/08/19 07:00 98.3 83 18 161/60 (93) 97 Room Air 98.3 I & O 02/07/19 02/07/19 02/08/19 15:00 23:00 07:00 Intake Total 200 ml 100 ml 0 ml Output Total 700 ml Balance 200 ml 100 ml -700 ml Physical Exam Physical Exam General appearance - alert,ill appearing, and in no distress and oriented to person, place, and time Mental Status - alert, oriented to person, place, and time, affect appropriate to mood Head - normal Chest - clear to auscultation, no wheezes, rales or rhonchi, symmetric air entry Heart - S1 and S2 normal Abdomen - soft, nontender, nondistended, no masses or organomegaly Neurological - alert and oriented Musculoskeletal - no muscular tenderness noted Extremities - no pedal edema Skin - warm and dry Labs Laboratory Tests Test 02/07/19 12:25 02/07/19 18:00 02/08/19 03:35 Prothrombin Time 16.3 SEC (11.7-14.0) H 15.9 SEC (11.7-14.0) H 15.6 SEC (11.7-14.0) H Prothrombin Time INR 1.3 (0.8-1.1) H 1.3 (0.8-1.1) H 1.3 (0.8-1.1) H Sodium Level 144 mmol/L (136-145) 147 mmol/L (136-145) H Potassium Level 4.1 mmol/L (3.5-5.1) 4.1 mmol/L (3.5-5.1) Chloride Level 113 mmol/L (98-107) H 116 mmol/L (98-107) H Carbon Dioxide Level 18 mmol/L (21-32) L 17 mmol/L (21-32) L Anion Gap 13 (6-14) 14 (6-14) Blood Urea Nitrogen 47 mg/dL (7-20) H 39 mg/dL (7-20) H Creatinine 1.8 mg/dL (0.6-1.0) H 1.6 mg/dL (0.6-1.0) H Estimated GFR (Cockcroft-Gault) 26.6 30.5 Glucose Level 173 mg/dL (70-99) H 114 mg/dL (70-99) H Calcium Level 8.7 mg/dL (8.5-10.1) 8.8 mg/dL (8.5-10.1) White Blood Count 16.7 x10^3/uL (4.0-11.0) H Red Blood Count 2.62 x10^6/uL (3.50-5.40) L Hemoglobin 8.1 g/dL (12.0-15.5) L Hematocrit 24.6 % (36.0-47.0) L Mean Corpuscular Volume 94 fL (79-100) Mean Corpuscular Hemoglobin 31 pg (25-35) Mean Corpuscular Hemoglobin Concent 33 g/dL (31-37) Red Cell Distribution Width 16.8 % (11.5-14.5) H Platelet Count 379 x10^3/uL (140-400) Neutrophils (%) (Auto) 76 % (31-73) H Lymphocytes (%) (Auto) 13 % (24-48) L Monocytes (%) (Auto) 10 % (0-9) H Eosinophils (%) (Auto) 1 % (0-3) Basophils (%) (Auto) 1 % (0-3) Neutrophils # (Auto) 12.6 x10^3/uL (1.8-7.7) H Lymphocytes # (Auto) 2.2 x10^3/uL (1.0-4.8) Monocytes # (Auto) 1.6 x10^3/uL (0.0-1.1) H Eosinophils # (Auto) 0.2 x10^3/uL (0.0-0.7) Basophils # (Auto) 0.1 x10^3/uL (0.0-0.2) Laboratory Tests 02/08/19 03:35 Laboratory Tests 02/07/19 18:00 02/08/19 03:35 Meds Current Medications Medications (Trade) Dose Ordered Sig/Sen Route PRN Reason Start Time Stop Time Status Last Admin Dose Admin Diltiazem HCl (Cardizem 24hr Cd) 240 mg 1X ONCE PO 02/07/19 21:15 02/07/19 21:16 DC 02/07/19 21:37 Acetaminophen/ Hydrocodone Bitart (Lortab 5/325) 1 tab PRN Q4HRS PRN PO MILD PAIN 1-3 02/07/19 21:30 02/08/19 05:42 Assessment Assessment 1. This is an 89-year-old female patient who was admitted with acute blood loss anemia. She was on Coumadin. Anemia is probably multifactorial. She has a history of peptic ulcer disease, although so far, her stool for occult blood was negative. 2. She has [id number] kidney injury. BUN is 81 and creatinine 2.2. 3. Severe protein calorie malnutrition. 4. Leukocytosis is reactive. Plan continue IV fluids. Patient has hypernatremia with sodium of 147. Change IV fluids to D5 half-normal saline with 20 mEq potassium chloride in each liter at 60 mL/h Hypertension- not controlled. Add IV hydralazine when necessary. Plan Plan For more details regarding further plans, please refer to the orders. LINETTE BURKS MD Feb 08, 2019 11:21
[2019-02-08] MEDS ORDERED: POTASSIUM CL 20MEQ D5-0.45NACL 1,000 ML IV SCH (11:30)
--- NOTE | 2019-02-08 13:16 | PDOC ---
SUBJECTIVE ROS AK I + C KD 3 Patient has no complaints. Family at bedside not report any issues. She is currently being fed with family members and appears to be eating well CVS: n Orthopnea, omar CP RESP: no SOB, no CONNER GI: no Nausea, no Vomiting : no Dysuria, no Urgency - wood in place OBJECTIVE Vital Signs Vital Signs Date Time Temp Pulse Resp B/P (MAP) Pulse Ox O2 Delivery O2 Flow Rate FiO2 02/08/19 11:00 98.6 89 18 163/62 (95) 97 Room Air 98.6 I & 0 Intake and Output 02/08/19 07:00 Intake Total 300 ml Output Total 700 ml Balance -400 ml Intake Oral 300 ml Output Urine Total 700 ml PHYSICAL EXAM Physical Exam GEN: Awake, Oriented x 1, In no distress EYES: Vision Unchanged, Conjunctiva Normal EN: No EN Drainage, Mucous Membranes moist NECK: no JVD, no JVP, Supple, no Thyromegaly CVS: S1S2, + Murmur, No Gallop, No Rub,no Edema RESP: no Rales, no Rhonchi,no Acc. Muscle Use GI: BS + ve, NO Bruit, Non Tender, Non Distended : no CVA tenderness, no Suprapubic Tenderness DIAGNOSIS/ASSESSMENT Assessment & Plan GURDEEP -ATN: Baseline Unknown . Improved with IV fluids as ordered. Azotemia much improved with resolution of GI blood loss Renal sclerosis as noted on Renal US -" increased echodensity of the right renal parenchyma also with cortical thinning, may be component of medical renal disease " Hypernatremia: Change to hypotonic IV fluids as ordered Metabolic acidosis- sec to normal saline. Non-gap acidosis is noted we'll hence seems to by cup containing fluids High likelihood of CK D given abnormal findings on renal sonogram. Suspect stage III . This may very well be her baseline in the setting of increased echodensity of the right renal parenchyma also with cortical thinning, may be component of medical renal disease. Rt Cyst - mid right kidney which may be a somewhat complex cyst. Probably not a candidate for any urological procedures. COMMENT/RELEVANT DATA Meds Current Medications Medications (Trade) Dose Ordered Sig/Sen Start Time Stop Time Status Last Admin Dose Admin Acetaminophen (Tylenol) 1,000 mg TID 02/05/19 14:00 02/06/19 20:47 1,000 MG Acetaminophen/ Hydrocodone Bitart (Lortab 5/325) 1 tab PRN Q4HRS PRN 02/07/19 21:30 02/08/19 05:42 1 TAB Ascorbic Acid (Vitamin C) 500 mg BID 02/05/19 12:30 02/08/19 10:38 500 MG Dexamethasone (Maxidex) 1 drop Q4HRS W/A 02/05/19 14:00 02/08/19 10:39 1 DROP Diltiazem HCl (Cardizem 24hr Cd) 240 mg 1X ONCE 02/07/19 21:15 02/07/19 21:16 DC 02/07/19 21:37 240 MG Ergocalciferol (Vitamin D2) 50,000 unit WEEKLY 02/12/19 09:00 Fentanyl Citrate (Fentanyl 2ml Vial) 50 mcg PRN Q5MIN PRN 02/07/19 06:15 02/08/19 06:14 DC Ferrous Sulfate (Feosol) 325 mg BID 02/05/19 21:00 UNV Hydralazine HCl (Apresoline Inj) 10 mg PRN Q4HRS PRN 02/07/19 10:00 02/07/19 23:30 10 MG Hydromorphone HCl (Dilaudid) 0.5 mg PRN Q10MIN PRN 02/07/19 07:00 02/08/19 06:59 DC Lidocaine HCl (Lidocaine Pf 2% Vial) 5 ml STK-MED ONCE 02/07/19 08:26 02/07/19 08:27 DC Lidocaine HCl (Xylocaine-Mpf 1% 2ml Vial) 2 ml 1X PRN PRN 02/07/19 06:15 02/08/19 06:14 DC Midazolam HCl (Versed) 2 mg PRN 1X PRN 02/07/19 06:15 02/08/19 06:14 DC Morphine Sulfate (Morphine Sulfate) 1 mg PRN Q10MIN PRN 02/07/19 07:00 02/08/19 06:59 DC Multivitamins (Thera M Plus) 1 tab DAILY08 02/05/19 12:30 02/08/19 10:38 1 TAB Ondansetron HCl (Zofran) 4 mg PRN Q6HRS PRN 02/07/19 07:00 02/08/19 06:59 DC Pantoprazole Sodium (PROTONIX VIAL for IV PUSH) 80 mg 1X ONCE 02/04/19 22:00 02/04/19 22:11 DC 02/04/19 23:23 80 MG Pantoprazole Sodium (Protonix) 40 mg HS 02/05/19 21:00 UNV Pantoprazole Sodium 80 mg/ Sodium Chloride 100 ml @ 8 mls/hr Q10H 02/04/19 22:30 02/05/19 09:26 DC 02/05/19 08:54 8 MLS/HR Phytonadione (Vitamin K Ampule) 5 mg 1X ONCE 02/04/19 23:00 02/04/19 23:01 DC 02/04/19 23:29 5 MG Potassium Chloride 20 meq/ Sodium Chloride 1,010 ml @ 100 mls/hr Q10H6M 02/07/19 10:00 UNV Potassium Chloride/Dextrose/ Sod Cl 1,000 ml @ 75 mls/hr [id number] 02/08/19 11:30 02/08/19 12:31 DC Potassium Chloride/Sodium Chloride 1,000 ml @ 60 mls/hr [id number] 02/07/19 10:00 02/08/19 11:19 DC 02/08/19 05:45 60 MLS/HR Prochlorperazine Edisylate (Compazine) 5 mg PACU PRN PRN 02/07/19 07:00 02/08/19 06:59 DC Propofol 20 ml @ As Directed STK-MED ONCE 02/07/19 08:26 02/07/19 08:27 DC Ringer's Solution 1,000 ml @ 125 mls/hr Q8H 02/07/19 06:15 02/07/19 06:18 DC Sodium Bicarbonate 50 meq/Potassium Acetate 20 meq/ Sterile Water 1,060 ml @ 75 mls/hr Q14H8M 02/08/19 13:00 02/09/19 08:59 Sodium Chloride 500 ml @ 500 mls/hr 1X ONCE 02/05/19 12:00 02/05/19 12:59 DC 02/05/19 12:00 500 MLS/HR Lab Laboratory Tests Test 02/07/19 18:00 02/08/19 03:35 Prothrombin Time 15.9 SEC (11.7-14.0) 15.6 SEC (11.7-14.0) Prothromb Time International Ratio 1.3 (0.8-1.1) 1.3 (0.8-1.1) Sodium Level 144 mmol/L (136-145) 147 mmol/L (136-145) Potassium Level 4.1 mmol/L (3.5-5.1) 4.1 mmol/L (3.5-5.1) Chloride Level 113 mmol/L (98-107) 116 mmol/L (98-107) Carbon Dioxide Level 18 mmol/L (21-32) 17 mmol/L (21-32) Anion Gap 13 (6-14) 14 (6-14) Blood Urea Nitrogen 47 mg/dL (7-20) 39 mg/dL (7-20) Creatinine 1.8 mg/dL (0.6-1.0) 1.6 mg/dL (0.6-1.0) Estimated GFR (Cockcroft-Gault) 26.6 30.5 Glucose Level 173 mg/dL (70-99) 114 mg/dL (70-99) Calcium Level 8.7 mg/dL (8.5-10.1) 8.8 mg/dL (8.5-10.1) White Blood Count 16.7 x10^3/uL (4.0-11.0) Red Blood Count 2.62 x10^6/uL (3.50-5.40) Hemoglobin 8.1 g/dL (12.0-15.5) Hematocrit 24.6 % (36.0-47.0) Mean Corpuscular Volume 94 fL (79-100) Mean Corpuscular Hemoglobin 31 pg (25-35) Mean Corpuscular Hemoglobin Concent 33 g/dL (31-37) Red Cell Distribution Width 16.8 % (11.5-14.5) Platelet Count 379 x10^3/uL (140-400) Neutrophils (%) (Auto) 76 % (31-73) Lymphocytes (%) (Auto) 13 % (24-48) Monocytes (%) (Auto) 10 % (0-9) Eosinophils (%) (Auto) 1 % (0-3) Basophils (%) (Auto) 1 % (0-3) Neutrophils # (Auto) 12.6 x10^3/uL (1.8-7.7) Lymphocytes # (Auto) 2.2 x10^3/uL (1.0-4.8) Monocytes # (Auto) 1.6 x10^3/uL (0.0-1.1) Eosinophils # (Auto) 0.2 x10^3/uL (0.0-0.7) Basophils # (Auto) 0.1 x10^3/uL (0.0-0.2) Results All relevant outside records, renal labs, imaging studies, telemetry/EKG's were reviewed. DERRICK HARRIS MD Feb 08, 2019 13:16
[2019-02-08] MEDS: STERILE WATER IV SCH (13:31)
[2019-02-08] MEDS: POTASSIUM ACETATE IV SCH (13:31)
[2019-02-08] MEDS: SODIUM BICARBONATE IV SCH (13:31)
[2019-02-08 13:36] LABS: PROTHROMBIN TIME PATIENT 15.7 SEC (11.7-14.0)
[2019-02-08 19:52] LABS: CALCIUM 8.8 mg/dL (8.5-10.1); CREATININE 1.6 mg/dL (0.6-1.0); GFR 30.5; POTASSIUM 4.5 mmol/L (3.5-5.1)
[2019-02-08 19:55] LABS: PROTHROMBIN TIME PATIENT 16.1 SEC (11.7-14.0)
--- NOTE | 2019-02-08 23:10 | NUR ---
Pt transferred down from 6S via bed at approximately 2230. Was given in report that pt can only tolerate sodium bicarb with 20 KCL going at 40 ml/hr. Pt was changed and made comfortable in bed. Will continue to monitor pt closely.
[2019-02-08] MEDS: hydrALAZINE 20 MG/ML VIAL. IVP PRN (23:57)
[2019-02-09] MEDS: SODIUM BICARBONATE IV SCH ×2 (02:35→10:02)
[2019-02-09] MEDS: STERILE WATER IV SCH ×2 (02:35→10:02)
[2019-02-09] MEDS: POTASSIUM ACETATE IV SCH ×2 (02:35→10:02)
[2019-02-09 03:00] VITALS: BP 138/56
[2019-02-09 05:18] LABS: BASO # 0.2 x10^3/uL (0.0-0.2); BASO % 1 % (0-3); EOS # 0.2 x10^3/uL (0.0-0.7); EOS % 1 % (0-3); HEMATOCRIT 23.9 % (36.0-47.0); HEMOGLOBIN 8.1 g/dL (12.0-15.5); LYMPH % 13 % (24-48); MEAN CORPUSCULAR HEMOGLOBIN 31 pg (25-35); MEAN CORPUSCULAR HGB CONC 34 g/dL (31-37); MEAN CORPUSCULAR VOLUME 93 fL (79-100); MONO # 1.3 x10^3/uL (0.0-1.1); MONO % 8 % (0-9); NEUT # 11.7 x10^3/uL (1.8-7.7); NEUT % 76 % (31-73); PLATELET COUNT 374 x10^3/uL (140-400); RED BLOOD COUNT 2.56 x10^6/uL (3.50-5.40); WHITE BLOOD COUNT 15.3 x10^3/uL (4.0-11.0)
[2019-02-09] MEDS: DEXAMETHASONE 0.1% OPHTH SOLUTION 5ML BOTTLE. OS SCH ×5 (05:36→23:00)
[2019-02-09 05:38] LABS: CALCIUM 8.8 mg/dL (8.5-10.1); CREATININE 1.6 mg/dL (0.6-1.0); GFR 30.5; POTASSIUM 4.4 mmol/L (3.5-5.1)
[2019-02-09 07:00] VITALS: BP 143/71
[2019-02-09] MEDS: PANTOPRAZOLE 40 MG TABLET.DR. PO SCH (08:23)
[2019-02-09] MEDS: FERROUS SULFATE 325 MG TABLET. PO SCH ×2 (08:24→17:33)
[2019-02-09] MEDS: MULTIVITAMIN with MINERAL TABLET. PO SCH (08:24)
[2019-02-09] MEDS: ACETAMINOPHEN 500 MG TABLET PO SCH ×3 (08:25→20:40)
[2019-02-09] MEDS: ASCORBIC ACID 500 MG TABLET PO SCH ×2 (10:03→20:40)
--- NOTE | 2019-02-09 10:24 | PDOC ---
IM PROGRESS NOTES- Subjective Subjective None Objective Vitals/I&O Vital Signs Date Time Temp Pulse Resp B/P (MAP) Pulse Ox O2 Delivery O2 Flow Rate FiO2 02/09/19 08:29 85 159/66 02/09/19 07:00 98.7 18 96 Room Air 98.7 I & O 02/08/19 02/08/19 02/09/19 15:00 23:00 07:00 Intake Total 20 ml 60 ml Output Total 250 ml 450 ml Balance -230 ml -390 ml Physical Exam Physical Exam General appearance - alert,ill appearing, and in no distress and oriented to person, place, and time Mental Status - alert, oriented to person, place, and time, affect appropriate to mood Head - normal Chest - clear to auscultation, no wheezes, rales or rhonchi, symmetric air entry Heart - S1 and S2 normal Abdomen - soft, nontender, nondistended, no masses or organomegaly Neurological - alert and oriented Musculoskeletal - no muscular tenderness noted Extremities - no pedal edema Skin - warm and dry Labs Laboratory Tests Test 02/08/19 12:30 02/08/19 19:00 02/09/19 04:35 Prothrombin Time 15.7 SEC (11.7-14.0) H 16.1 SEC (11.7-14.0) H 16.0 SEC (11.7-14.0) H Prothrombin Time INR 1.3 (0.8-1.1) H 1.3 (0.8-1.1) H 1.3 (0.8-1.1) H Sodium Level 141 mmol/L (136-145) 138 mmol/L (136-145) Potassium Level 4.5 mmol/L (3.5-5.1) 4.4 mmol/L (3.5-5.1) Chloride Level 112 mmol/L (98-107) H 109 mmol/L (98-107) H Carbon Dioxide Level 20 mmol/L (21-32) L 18 mmol/L (21-32) L Anion Gap 9 (6-14) 11 (6-14) Blood Urea Nitrogen 32 mg/dL (7-20) H 31 mg/dL (7-20) H Creatinine 1.6 mg/dL (0.6-1.0) H 1.6 mg/dL (0.6-1.0) H Estimated GFR (Cockcroft-Gault) 30.5 30.5 Glucose Level 117 mg/dL (70-99) H 113 mg/dL (70-99) H Calcium Level 8.8 mg/dL (8.5-10.1) 8.8 mg/dL (8.5-10.1) White Blood Count 15.3 x10^3/uL (4.0-11.0) H Red Blood Count 2.56 x10^6/uL (3.50-5.40) L Hemoglobin 8.1 g/dL (12.0-15.5) L Hematocrit 23.9 % (36.0-47.0) L Mean Corpuscular Volume 93 fL (79-100) Mean Corpuscular Hemoglobin 31 pg (25-35) Mean Corpuscular Hemoglobin Concent 34 g/dL (31-37) Red Cell Distribution Width 17.0 % (11.5-14.5) H Platelet Count 374 x10^3/uL (140-400) Neutrophils (%) (Auto) 76 % (31-73) H Lymphocytes (%) (Auto) 13 % (24-48) L Monocytes (%) (Auto) 8 % (0-9) Eosinophils (%) (Auto) 1 % (0-3) Basophils (%) (Auto) 1 % (0-3) Neutrophils # (Auto) 11.7 x10^3/uL (1.8-7.7) H Lymphocytes # (Auto) 2.0 x10^3/uL (1.0-4.8) Monocytes # (Auto) 1.3 x10^3/uL (0.0-1.1) H Eosinophils # (Auto) 0.2 x10^3/uL (0.0-0.7) Basophils # (Auto) 0.2 x10^3/uL (0.0-0.2) Laboratory Tests 02/09/19 04:35 Laboratory Tests 02/08/19 19:00 02/09/19 04:35 Meds Current Medications Medications (Trade) Dose Ordered Sig/Sen Route PRN Reason Start Time Stop Time Status Last Admin Dose Admin Diltiazem HCl (Cardizem 24hr Cd) 240 mg DAILY PO 02/08/19 13:00 02/09/19 08:29 Sodium Bicarbonate 50 meq/Potassium Acetate 20 meq/ Sterile Water 1,060 ml @ 75 mls/hr Q14H8M IV 02/08/19 13:00 02/09/19 08:59 DC 02/09/19 10:02 Assessment Assessment 1. This is an 89-year-old female patient who was admitted with acute blood loss anemia. She was on Coumadin. Anemia is probably multifactorial. She has a history of peptic ulcer disease, although so far, her stool for occult blood was negative. 2. She has limbt-be-nmacikq kidney injury. BUN is 81 and creatinine 2.2. Renal function is much better. 3. Severe protein calorie malnutrition. 4. Leukocytosis is reactive. Hypernatremia is better. Patient still has low bicarbonate of 18. She is getting sterile water IV with sodium bicarbonate. Hypertension- not controlled but slowly improving. Condition treatment extensively discussed with the patient and her daughters. Clinically improving. [facility] Plan Plan For more details regarding further plans, please refer to the orders. LINETTE BURKS MD Feb 09, 2019 10:24
[2019-02-09 11:00] VITALS: BP 145/66
--- NOTE | 2019-02-09 11:42 | PDOC ---
Infectious Disease Note Subjective Subjective Feeling alright, denies pain Eating about 50% of her meals No fevers or diarrhea reported Vital Sign Vital Signs Vital Signs Date Time Temp Pulse Resp B/P (MAP) Pulse Ox O2 Delivery O2 Flow Rate FiO2 02/09/19 11:00 98.4 81 18 145/66 (92) 96 Room Air 98.4 Physical Exam PHYSICAL EXAM GENERAL: Propped up in bed, alert, NAD HEENT: Oral cavity clear LUNGS: Clear bilaterally. HEART: S1, S2 ABDOMEN: Soft, nontender, nondistended. no guarding. : Dozier (02/05) EXTREMITIES: No edema. Right hip incision well-approx, adin. No redness or drainage DERMATOLOGIC: Warm, dry. No generalized rash. NEUROLOGIC: Alert, answers simple questions appropriately Labs Lab Laboratory Tests Test 02/08/19 12:30 02/08/19 19:00 02/09/19 04:35 Prothrombin Time 15.7 SEC (11.7-14.0) 16.1 SEC (11.7-14.0) 16.0 SEC (11.7-14.0) Prothromb Time International Ratio 1.3 (0.8-1.1) 1.3 (0.8-1.1) 1.3 (0.8-1.1) Sodium Level 141 mmol/L (136-145) 138 mmol/L (136-145) Potassium Level 4.5 mmol/L (3.5-5.1) 4.4 mmol/L (3.5-5.1) Chloride Level 112 mmol/L (98-107) 109 mmol/L (98-107) Carbon Dioxide Level 20 mmol/L (21-32) 18 mmol/L (21-32) Anion Gap 9 (6-14) 11 (6-14) Blood Urea Nitrogen 32 mg/dL (7-20) 31 mg/dL (7-20) Creatinine 1.6 mg/dL (0.6-1.0) 1.6 mg/dL (0.6-1.0) Estimated GFR (Cockcroft-Gault) 30.5 30.5 Glucose Level 117 mg/dL (70-99) 113 mg/dL (70-99) Calcium Level 8.8 mg/dL (8.5-10.1) 8.8 mg/dL (8.5-10.1) White Blood Count 15.3 x10^3/uL (4.0-11.0) Red Blood Count 2.56 x10^6/uL (3.50-5.40) Hemoglobin 8.1 g/dL (12.0-15.5) Hematocrit 23.9 % (36.0-47.0) Mean Corpuscular Volume 93 fL (79-100) Mean Corpuscular Hemoglobin 31 pg (25-35) Mean Corpuscular Hemoglobin Concent 34 g/dL (31-37) Red Cell Distribution Width 17.0 % (11.5-14.5) Platelet Count 374 x10^3/uL (140-400) Neutrophils (%) (Auto) 76 % (31-73) Lymphocytes (%) (Auto) 13 % (24-48) Monocytes (%) (Auto) 8 % (0-9) Eosinophils (%) (Auto) 1 % (0-3) Basophils (%) (Auto) 1 % (0-3) Neutrophils # (Auto) 11.7 x10^3/uL (1.8-7.7) Lymphocytes # (Auto) 2.0 x10^3/uL (1.0-4.8) Monocytes # (Auto) 1.3 x10^3/uL (0.0-1.1) Eosinophils # (Auto) 0.2 x10^3/uL (0.0-0.7) Basophils # (Auto) 0.2 x10^3/uL (0.0-0.2) Micro Microbiology 02/04/19 Blood Culture - Preliminary, Resulted NO GROWTH AFTER 4 DAYS 02/04. URINE CULTURE RES 1 Final Comment Vancomycin-resistant Enterococcus (Enterococcus faecium) 50,000-100,000 colony forming units per mL LINEZOLID = 2.0 SENSITIVE SYNERCID = 0.5 SENSITIVE ANTIMICROBIAL SUSCEPTIBILITY Final Comment S = Susceptible; I = Intermediate; R = Resistant P = Positive; N = Negative MICS are expressed in micrograms per mL Antibiotic RSLT#1 RSLT#2 RSLT#3 RSLT#4 Ciprofloxacin R>=8 Levofloxacin R>=8 Nitrofurantoin I =64 Penicillin R>=64 Tetracycline R>=16 Vancomycin R>=32 Objective Assessment VRE in urine, 7/9. urine WBC 1-5. Dozier changed 02/05 Leukocytosis, some better Anemia, status post 1 packed RBC. Acute kidney injury on chronic kidney disease. Dark tarry stools with h/o PUD ;s/p EGD nonerosive gastritis Large hiatal hernia with gastroesophageal reflux disease. Coronary artery disease. Dementia. Osteoarthritis. History of recurrent urinary tract infection. s/p closed reduction and IM nailing of right hip fracture, 01/27 Plan Plan of Care ? urine VRE colonization or contamination as she is improving without therapy and her UA is not c/w infection BC neg to date Maintain aspiration precautions Supportive care. D/w nursing Attending Co-Sign Attending Co-Sign The patient was seen and interviewed as well as examined at the bedside. The chart was reviewed. The case was discussed. Agree with the plan of care. JIMMY CHARLES APRN Feb 09, 2019 11:42 ATIYA PALOMO MD Feb 09, 2019 14:02
[2019-02-09 12:55] LABS: PROTHROMBIN TIME PATIENT 14.8 SEC (11.7-14.0)
[2019-02-09 13:19] LABS: CALCIUM 9.1 mg/dL (8.5-10.1); CREATININE 1.7 mg/dL (0.6-1.0); GFR 28.4; POTASSIUM 4.5 mmol/L (3.5-5.1)
[2019-02-09 15:00] VITALS: BP 140/64
[2019-02-09] MEDS: HYDROcodone/APAP 5/325MG 1 TAB TABLET PO PRN (17:34)
[2019-02-09 18:14] LABS: CALCIUM 8.7 mg/dL (8.5-10.1); CREATININE 1.8 mg/dL (0.6-1.0); GFR 26.6; POTASSIUM 4.4 mmol/L (3.5-5.1)
[2019-02-09 19:00] VITALS: BP 136/92
[2019-02-09 23:00] VITALS: BP 146/55
[2019-02-10 03:00] VITALS: BP 141/51
[2019-02-10] MEDS: DEXAMETHASONE 0.1% OPHTH SOLUTION 5ML BOTTLE. OS SCH ×2 (05:28→10:18)
[2019-02-10 07:00] VITALS: BP 163/63
--- NOTE | 2019-02-10 09:37 | PDOC ---
PROGRESS NOTES Subjective Subjective ready to go back to [place] Objective Objective Vital Signs Date Time Temp Pulse Resp B/P (MAP) Pulse Ox O2 Delivery O2 Flow Rate FiO2 02/10/19 07:00 98.2 78 18 163/63 (96) 94 Room Air 98.2 Intake and Output 02/10/19 06:59 Intake Total 300 ml Output Total 575 ml Balance -275 ml Intake Oral 300 ml Output Urine Total 575 ml # Bowel Movements 1 Physical Exam Abdomen: Normal bowel sounds, Soft Heart: Regular rate, Normal S1, Normal S2 Extremities: No clubbing General: mild distress HEENT: Atraumatic Lungs: Clear to auscultation MUSCULOSKELETAL: Osteoarthritic changes both hands Neck: Supple Neuro: Normal speech Psych/Mental Status: Mood NL COMMENT chronic wood ,which was changed recently. Diagnosis Problem List Problems Medical Problems: (1) Anemia Status: Acute Assessment Assessment Assessment VRE in urine, 02/04. urine WBC 1-5. Wood changed 02/05 Leukocytosis, some better Anemia, status post 1 packed RBC. Acute kidney injury on chronic kidney disease. Dark tarry stools with h/o PUD ;s/p EGD nonerosive gastritis Large hiatal hernia with gastroesophageal reflux disease. Coronary artery disease. Dementia. Osteoarthritis. History of recurrent urinary tract infection. s/p closed reduction and IM nailing of right hip fracture, 01/27 Plan Plan of Care d/c back to [place] today.renal function to base line. ? urine VRE colonization or contamination as she is improving without therapy and her UA is not c/w infection BC neg to date Maintain aspiration precautions Supportive care. Plan Plan of Care Problems Medical Problems: (1) Anemia Status: Acute Comment Review of Relevant I have reviewed the following items gustavo (where applicable) has been applied. Labs Laboratory Tests Test 02/09/19 12:20 02/09/19 17:50 Prothrombin Time 14.8 SEC (11.7-14.0) 15.0 SEC (11.7-14.0) Prothromb Time International Ratio 1.2 (0.8-1.1) 1.2 (0.8-1.1) Sodium Level 135 mmol/L (136-145) 136 mmol/L (136-145) Potassium Level 4.5 mmol/L (3.5-5.1) 4.4 mmol/L (3.5-5.1) Chloride Level 104 mmol/L (98-107) 105 mmol/L (98-107) Carbon Dioxide Level 18 mmol/L (21-32) 19 mmol/L (21-32) Anion Gap 13 (6-14) 12 (6-14) Blood Urea Nitrogen 29 mg/dL (7-20) 31 mg/dL (7-20) Creatinine 1.7 mg/dL (0.6-1.0) 1.8 mg/dL (0.6-1.0) Estimated GFR (Cockcroft-Gault) 28.4 26.6 Glucose Level 136 mg/dL (70-99) 159 mg/dL (70-99) Calcium Level 9.1 mg/dL (8.5-10.1) 8.7 mg/dL (8.5-10.1) Microbiology 02/04/19 Blood Culture - Final, Complete NO GROWTH AFTER 5 DAYS 02/04/19 Urine Culture - Final, Complete 02/04/19 Urine Culture Result 1 (HIRAM) - Final, Complete 02/04/19 Antimicrobic Susceptibility - Final, Complete Medications Current Medications Ergocalciferol (Vitamin D2) 50,000 unit WEEKLY PO ; Start 02/12/19 at 09:00 Vitals/I & O Vital Sign - Last 24 Hours 02/09/19 02/09/19 02/09/19 02/09/19 11:00 15:00 17:34 19:00 Temp 98.4 98.4 98.4 98.4 Pulse 81 76 Resp 18 18 20 18 B/P (MAP) 145/66 (92) 140/64 (89) Pulse Ox 96 96 96 O2 Delivery Room Air Room Air Room Air Room Air 02/09/19 02/09/19 02/09/19 02/10/19 19:00 20:15 23:00 03:00 Temp 98.5 98.2 97.8 98.5 98.2 97.8 Pulse 75 79 74 Resp 18 18 18 B/P (MAP) 136/92 (107) 146/55 (85) 141/51 (81) Pulse Ox 93 93 94 O2 Delivery Room Air Room Air Room Air Room Air 02/10/19 07:00 Temp 98.2 98.2 Pulse 78 Resp 18 B/P (MAP) 163/63 (96) Pulse Ox 94 O2 Delivery Room Air Intake and Output 02/09/19 02/09/19 02/10/19 14:59 22:59 06:59 Intake Total 150 ml 150 ml Output Total 575 ml Balance 150 ml 150 ml -575 ml SAIDA CHUNG MD Feb 10, 2019 09:37
--- NOTE | 2019-02-10 09:46 | SNU/HH DC ---
DISCHARGE ORDERS DISCHARGE INFORMATION: DISCHARGE DATE: Feb 10, 2019 FINAL DIAGNOSIS Problems Medical Problems: (1) Anemia Status: Acute CONDITION ON DISCHARGE: Stable CODE STATUS: Code Status: DNR/DNI NURSING HOME: SNF STAY <30 DAYS: Yes POST DISCHARGE ORDERS: ACTIVITY ORDERS: Resume previous activity, Activity as tolerated WEIGHT BEARING STATUS: As tolerated DIET AFTER DISCHARGE: Regular WOUND/INCISION CARE: Do not change dressing OTHER ORDERS: chnage wood q 4 weeks FOLLOW-UP: ANTICOAGULATION F/U NEEDED: inr weekly,notify doctor if abnormal TREATMENT/EQUIPMENT ORDERS: ADAPTIVE EQUIPMENT NEEDED: Walker Physical Therapy For: Evalulation/Treatment Occupational Therapy For: Evaluation/Treatment DISCHARGE MEDICATIONS: Home Meds Active Scripts Warfarin Sodium (COUMADIN) 2 Mg Tablet, 1 TAB PO DAILY for dvt for 30 Days, #30 TAB Prov:BERRY CAMPBELL MD 01/29/19 Cefdinir (CEFDINIR) 300 Mg Capsule, 1 CAP PO BID for uti for 7 Days, #14 CAP Prov:BERRY CAMPBELL MD 01/29/19 Reported Medications Pantoprazole Sodium (PROTONIX ) 40 Mg Tablet.dr, 40 MG PO HS for GERD, TAB 01/27/19 Acetaminophen (ACETAMINOPHEN) 500 Mg Tablet, 1000 MG PO TID for pain , TAB TID at 0800, 1200, and 1700 01/27/19 Ascorbic Acid (VITAMIN C) 500 Mg Tablet, 500 MG PO BID for supplement, TAB BID at 0800 and 1700 01/27/19 Ferrous Sulfate (FEROSUL) 325 Mg Tablet, 325 MG PO BID for supplement , TAB BID at 0800 and 1700 01/27/19 Diltiazem HCl (Diltiazem 24Hr ER (LA)) 240 Mg Tab.er.24h, 240 MG PO DAILY for hypertension, TAB.SR BID at 0800 and 1700 01/27/19 Ergocalciferol (Vitamin D2) (VITAMIN D2) 50,000 Unit Capsule, 1 CAP PO WEEKLY for supplement, #4 CAP 5 Refills Once a week on Sunday01/27/19 Multivitamins,Therapeutic (THERA-TABS) 1 Each Tablet, 1 EACH PO DAILY08 for supplement, TAB 01/27/19 Prednisolone Acetate (PREDNISOLONE ACETATE) 5 Ml Drops.susp, 1 DROP LEFTEYE DAILY08 for glaucoma, #5 ML 01/27/19 Potassium Chloride (POTASSIUM CHLORIDE) 20 Meq Tablet.er, 20 MEQ PO DAILY08 for supplement, TAB.SR 01/27/19 Lisinopril/Hydrochlorothiazide (LISINOPRIL-HCTZ 20-12.5 MG TAB) 1 Each Tablet, 1 TAB PO DAILY08 for hypertension , #30 TAB 5 Refills 01/27/19 Furosemide (FUROSEMIDE) 20 Mg Tablet, 1 TAB PO DAILY08 for kidney disease,heart disease , #90 TAB 1 Refill 01/27/19 SAIDA CHUNG MD Feb 10, 2019 09:46
--- NOTE | 2019-02-10 09:47 | SNU/HH DC ---
DISCHARGE ORDERS DISCHARGE INFORMATION: DISCHARGE DATE: Feb 10, 2019 FINAL DIAGNOSIS Problems Medical Problems: (1) Anemia Status: Acute CONDITION ON DISCHARGE: Stable CODE STATUS: Code Status: DNR/DNI POST DISCHARGE ORDERS: ACTIVITY ORDERS: Resume previous activity, Activity as tolerated WEIGHT BEARING STATUS: As tolerated DIET AFTER DISCHARGE: Regular WOUND/INCISION CARE: Do not change dressing OTHER ORDERS: chnage wood q 4 weeks FOLLOW-UP: ANTICOAGULATION F/U NEEDED: inr weekly,notify doctor if abnormal,cbc and bmp weekly TREATMENT/EQUIPMENT ORDERS: ADAPTIVE EQUIPMENT NEEDED: Walker Physical Therapy For: Evalulation/Treatment Occupational Therapy For: Evaluation/Treatment DISCHARGE MEDICATIONS: Home Meds Active Scripts Warfarin Sodium (COUMADIN) 2 Mg Tablet, 1 TAB PO DAILY for dvt for 30 Days, #30 TAB Prov:BERRY CAMPBELL MD 01/29/19 Cefdinir (CEFDINIR) 300 Mg Capsule, 1 CAP PO BID for uti for 7 Days, #14 CAP Prov:BERRY CAMPBELL MD 01/29/19 Reported Medications Pantoprazole Sodium (PROTONIX ) 40 Mg Tablet.dr, 40 MG PO HS for GERD, TAB 01/27/19 Acetaminophen (ACETAMINOPHEN) 500 Mg Tablet, 1000 MG PO TID for pain , TAB TID at 0800, 1200, and 1700 01/27/19 Ascorbic Acid (VITAMIN C) 500 Mg Tablet, 500 MG PO BID for supplement, TAB BID at 0800 and 1700 01/27/19 Ferrous Sulfate (FEROSUL) 325 Mg Tablet, 325 MG PO BID for supplement , TAB BID at 0800 and 1700 01/27/19 Diltiazem HCl (Diltiazem 24Hr ER (LA)) 240 Mg Tab.er.24h, 240 MG PO DAILY for hypertension, TAB.SR BID at 0800 and 1700 01/27/19 Ergocalciferol (Vitamin D2) (VITAMIN D2) 50,000 Unit Capsule, 1 CAP PO WEEKLY for supplement, #4 CAP 5 Refills Once a week on Sunday01/27/19 Multivitamins,Therapeutic (THERA-TABS) 1 Each Tablet, 1 EACH PO DAILY08 for supplement, TAB 01/27/19 Prednisolone Acetate (PREDNISOLONE ACETATE) 5 Ml Drops.susp, 1 DROP LEFTEYE DAILY08 for glaucoma, #5 ML 01/27/19 Potassium Chloride (POTASSIUM CHLORIDE) 20 Meq Tablet.er, 20 MEQ PO DAILY08 for supplement, TAB.SR 01/27/19 Lisinopril/Hydrochlorothiazide (LISINOPRIL-HCTZ 20-12.5 MG TAB) 1 Each Tablet, 1 TAB PO DAILY08 for hypertension , #30 TAB 5 Refills 01/27/19 Furosemide (FUROSEMIDE) 20 Mg Tablet, 1 TAB PO DAILY08 for kidney disease,heart disease , #90 TAB 1 Refill 01/27/19 SAIDA CHUNG MD Feb 10, 2019 09:47
[2019-02-10] MEDS: ASCORBIC ACID 500 MG TABLET PO SCH (10:08)
[2019-02-10] MEDS: MULTIVITAMIN with MINERAL TABLET. PO SCH (10:09)
[2019-02-10] MEDS: FERROUS SULFATE 325 MG TABLET. PO SCH (10:10)
[2019-02-10] MEDS: ACETAMINOPHEN 500 MG TABLET PO SCH (10:11)
--- NOTE | 2019-02-10 10:13 | PDOC ---
SUBJECTIVE ROS Alert, sitting up in chair OBJECTIVE Vital Signs Vital Signs Date Time Temp Pulse Resp B/P (MAP) Pulse Ox O2 Delivery O2 Flow Rate FiO2 02/10/19 07:00 98.2 78 18 163/63 (96) 94 Room Air 98.2 I & 0 Intake and Output 02/10/19 07:00 Intake Total 300 ml Output Total 575 ml Balance -275 ml Intake Oral 300 ml Output Urine Total 575 ml # Bowel Movements 1 PHYSICAL EXAM Physical Exam GEN: NAD , HEN: Om moist NECK: Supple CVS: RRR RESP: CTA, No Acc. Muscle Use GI: BS + ve, Non Tender, Non Distended : No CVA tenderness, No Suprapubic Tenderness,wood + Skin - No rash Neuro- dementia, Grossly Normal DIAGNOSIS/ASSESSMENT Assessment & Plan GURDEEP -ATN Improving renal function Renal US -no hydronephrosis ,increased echodensity of the right renal parenchyma also with cortical thinning, may be component of medical renal disease. Metabolic acidosis- Mildly Low, stable CKD - Unknown baseline increased echodensity of the right renal parenchyma also with cortical thinning, may be component of medical renal disease. Rt Cyst - mid right kidney which may be a somewhat complex cyst UTI-VRE in urine, Wood changed 02/05 Anemia-black tarry stools at presentation ,Recd PRBC s/p EGD 02/07 - nonerosive gastritis, large hiatal hernia with GERD COMMENT/RELEVANT DATA Meds Current Medications Medications (Trade) Dose Ordered Sig/Sen Start Time Stop Time Status Last Admin Dose Admin Acetaminophen (Tylenol) 1,000 mg TID 02/05/19 14:00 02/09/19 20:40 1,000 MG Acetaminophen/ Hydrocodone Bitart (Lortab 5/325) 1 tab PRN Q4HRS PRN 02/07/19 21:30 02/09/19 17:34 1 TAB Ascorbic Acid (Vitamin C) 500 mg BID 02/05/19 12:30 02/09/19 20:40 500 MG Dexamethasone (Maxidex) 1 drop Q4HRS W/A 02/05/19 14:00 02/10/19 05:28 1 DROP Diltiazem HCl (Cardizem 24hr Cd) 240 mg 1X ONCE 02/07/19 21:15 02/07/19 21:16 DC 02/07/19 21:37 240 MG Ergocalciferol (Vitamin D2) 50,000 unit WEEKLY 02/12/19 09:00 Fentanyl Citrate (Fentanyl 2ml Vial) 50 mcg PRN Q5MIN PRN 02/07/19 06:15 02/08/19 06:14 DC Ferrous Sulfate (Feosol) 325 mg BID 02/05/19 21:00 UNV Hydralazine HCl (Apresoline Inj) 10 mg PRN Q4HRS PRN 02/07/19 10:00 02/08/19 23:57 10 MG Hydromorphone HCl (Dilaudid) 0.5 mg PRN Q10MIN PRN 02/07/19 07:00 02/08/19 06:59 DC Lidocaine HCl (Lidocaine Pf 2% Vial) 5 ml STK-MED ONCE 02/07/19 08:26 02/07/19 08:27 DC Lidocaine HCl (Xylocaine-Mpf 1% 2ml Vial) 2 ml 1X PRN PRN 02/07/19 06:15 02/08/19 06:14 DC Midazolam HCl (Versed) 2 mg PRN 1X PRN 02/07/19 06:15 02/08/19 06:14 DC Morphine Sulfate (Morphine Sulfate) 1 mg PRN Q10MIN PRN 02/07/19 07:00 02/08/19 06:59 DC Multivitamins (Thera M Plus) 1 tab DAILY08 02/05/19 12:30 02/09/19 08:24 1 TAB Ondansetron HCl (Zofran) 4 mg PRN Q6HRS PRN 02/07/19 07:00 02/08/19 06:59 DC Pantoprazole Sodium (PROTONIX VIAL for IV PUSH) 80 mg 1X ONCE 02/04/19 22:00 02/04/19 22:11 DC 02/04/19 23:23 80 MG Pantoprazole Sodium (Protonix) 40 mg HS 02/05/19 21:00 UNV Pantoprazole Sodium 80 mg/ Sodium Chloride 100 ml @ 8 mls/hr Q10H 02/04/19 22:30 02/05/19 09:26 DC 02/05/19 08:54 8 MLS/HR Phytonadione (Vitamin K Ampule) 5 mg 1X ONCE 02/04/19 23:00 02/04/19 23:01 DC 02/04/19 23:29 5 MG Potassium Chloride 20 meq/ Sodium Chloride 1,010 ml @ 100 mls/hr Q10H6M 02/07/19 10:00 UNV Potassium Chloride/Dextrose/ Sod Cl 1,000 ml @ 75 mls/hr [id number] 02/08/19 11:30 02/08/19 12:31 DC Potassium Chloride/Sodium Chloride 1,000 ml @ 60 mls/hr [id number] 02/07/19 10:00 02/08/19 11:19 DC 02/08/19 05:45 60 MLS/HR Prochlorperazine Edisylate (Compazine) 5 mg PACU PRN PRN 02/07/19 07:00 02/08/19 06:59 DC Propofol 20 ml @ As Directed STK-MED ONCE 02/07/19 08:26 02/07/19 08:27 DC Ringer's Solution 1,000 ml @ 125 mls/hr Q8H 02/07/19 06:15 02/07/19 06:18 DC Sodium Bicarbonate 50 meq/Potassium Acetate 20 meq/ Sterile Water 1,060 ml @ 75 mls/hr Q14H8M 02/08/19 13:00 02/09/19 08:59 DC 02/09/19 10:02 75 MLS/HR Sodium Chloride 500 ml @ 500 mls/hr 1X ONCE 02/05/19 12:00 02/05/19 12:59 DC 02/05/19 12:00 500 MLS/HR Lab Laboratory Tests Test 02/09/19 12:20 02/09/19 17:50 Prothrombin Time 14.8 SEC (11.7-14.0) 15.0 SEC (11.7-14.0) Prothromb Time International Ratio 1.2 (0.8-1.1) 1.2 (0.8-1.1) Sodium Level 135 mmol/L (136-145) 136 mmol/L (136-145) Potassium Level 4.5 mmol/L (3.5-5.1) 4.4 mmol/L (3.5-5.1) Chloride Level 104 mmol/L (98-107) 105 mmol/L (98-107) Carbon Dioxide Level 18 mmol/L (21-32) 19 mmol/L (21-32) Anion Gap 13 (6-14) 12 (6-14) Blood Urea Nitrogen 29 mg/dL (7-20) 31 mg/dL (7-20) Creatinine 1.7 mg/dL (0.6-1.0) 1.8 mg/dL (0.6-1.0) Estimated GFR (Cockcroft-Gault) 28.4 26.6 Glucose Level 136 mg/dL (70-99) 159 mg/dL (70-99) Calcium Level 9.1 mg/dL (8.5-10.1) 8.7 mg/dL (8.5-10.1) Results All relevant outside records, renal labs, imaging studies, telemetry/EKG's were reviewed. LOBO HOLT MD Feb 10, 2019 10:13
[2019-02-10] MEDS: PANTOPRAZOLE 40 MG TABLET.DR. PO SCH (10:14)
--- NOTE | 2019-02-10 10:17 | PDOC ---
Objective: Objective: No GI concerns per nurse - ?DC today Vital Signs: Vital Signs Date Time Temp Pulse Resp B/P (MAP) Pulse Ox O2 Delivery O2 Flow Rate FiO2 02/10/19 07:00 98.2 78 18 163/63 (96) 94 Room Air 98.2 Labs: Laboratory Tests Test 02/09/19 12:20 02/09/19 17:50 Prothrombin Time 14.8 SEC 15.0 SEC Prothromb Time International Ratio 1.2 1.2 Sodium Level 135 mmol/L 136 mmol/L Potassium Level 4.5 mmol/L 4.4 mmol/L Chloride Level 104 mmol/L 105 mmol/L Carbon Dioxide Level 18 mmol/L 19 mmol/L Anion Gap 13 12 Blood Urea Nitrogen 29 mg/dL 31 mg/dL Creatinine 1.7 mg/dL 1.8 mg/dL Estimated GFR (Cockcroft-Gault) 28.4 26.6 Glucose Level 136 mg/dL 159 mg/dL Calcium Level 9.1 mg/dL 8.7 mg/dL URINE CULTURE Final Final report URINE CULTURE RES 1 Final Comment Vancomycin-resistant Enterococcus (Enterococcus faecium) BLOOD CULTURE Final NO GROWTH AFTER 5 DAYS Imaging: EGD 02/07 non-erosive gastritis hiatal hernia PE: GEN: NAD LUNGS: room air NEURO/PSYCH: sleeping, not awakened A/P: Anemia, dark stools - EGD unrevealing as above Coumadin coagulopathy w/ recent hip surgery - resolved Leukocytosis, GURDEEP/CKD, UTI -- Continue PPI and iron. DC per primary. PAOLA KHOURY Feb 10, 2019 10:17
[2019-02-10 10:42] VITALS: BP 152/65
--- NOTE | 2019-02-10 10:53 | NUR ---
[facility] following pt. Orders faxed to [facility]. [facility] arranged transportation via [facility] at 1300. RN notified and packet on chart.
--- NOTE | 2019-02-10 13:26 | NUR ---
Discharge Note: Patient was discharged back to [facility]. Patients IV was discontinued without any complications by [employer]. Patients family at bedside and agreeable with discharge plans. Patient took all personal belongings with her. Patent was transferred by EMS. Called [facility] and report was given via phone to ROBERT Brower.
[2019-02-12] MEDS ORDERED: ERGOCALCIFEROL (VITAMIN D2) 50,000 UNIT CAPSULE. PO SCH (09:00)
== END 2019-02-10 13:31 | disposition home or self-care (01) | DRG 682 ==
LOC: ER 20:15 → 6 SOUTH 21:45 → 5 NORTH 02-08 22:30
PROVIDERS: ADMIT Internal Medicine; ATTEND Internal Medicine
PROC: 30233K1 Transfusion of Nonautologous Frozen Plasma into Peripheral Vein, Percutaneous Approach (ICD-10-PCS; principal; 2019-02-04)
PROC: 30233N1 Transfusion of Nonautologous Red Blood Cells into Peripheral Vein, Percutaneous Approach (ICD-10-PCS; 2019-02-04)
PROC: 0DJ08ZZ Inspection of Upper Intestinal Tract, Via Natural or Artificial Opening Endoscopic (ICD-10-PCS; 2019-02-07)
DX: N17.9 Acute kidney failure, unspecified (principal); E43 Unspecified severe protein-calorie malnutrition; D62 Acute posthemorrhagic anemia; I13.0 Hypertensive heart and chronic kidney disease with heart failure and stage 1 through stage 4 chronic kidney disease, or unspecified chronic kidney disease; E87.0 Hyperosmolality and hypernatremia; N39.0 Urinary tract infection, site not specified; K29.70 Gastritis, unspecified, without bleeding; C44.91 Basal cell carcinoma of skin, unspecified; F03.90 Unspecified dementia, unspecified severity, without behavioral disturbance, psychotic disturbance, mood disturbance, and anxiety; G89.4 Chronic pain syndrome; I25.10 Atherosclerotic heart disease of native coronary artery without angina pectoris; I50.9 Heart failure, unspecified; K21.9 Gastro-esophageal reflux disease without esophagitis; K44.9 Diaphragmatic hernia without obstruction or gangrene; M19.90 Unspecified osteoarthritis, unspecified site; N18.9 Chronic kidney disease, unspecified; Z96.649 Presence of unspecified artificial hip joint; T45.515A Adverse effect of anticoagulants, initial encounter; Z79.01 Long term (current) use of anticoagulants; Z82.49 Family history of ischemic heart disease and other diseases of the circulatory system; Z85.828 Personal history of other malignant neoplasm of skin; Z87.11 Personal history of peptic ulcer disease; Z87.440 Personal history of urinary (tract) infections; Z83.3 Family history of diabetes mellitus; Z68.24 Body mass index [BMI] 24.0-24.9, adult
CPT/HCPCS: 36415; 36430; 43235; 71045; 76770; 80048; 80053; 81001; 82274; 83605; 83735; 85007; 85025; 85027; 85610; 85730; 86850; 86870; 86900; 86901; 86902; 86922; 86927; 87040; 87086; 87186; 87641; 93005; 96372; 96374; C9113; J0360; J2001; J2704; J3430; J7030; J7040; P9016; P9017; P9612; 97110; 97530; 97535; 99285-25

== ENCOUNTER 2020-01-30 11:33 | Inpatient (IN) | payer MEDICARE, OTHER ==
[~2020-01-30] VITALS: Ht 165.1 cm; Wt 62.6 kg
[~2020-01-30 11:33] MED LIST changes: -ASCO500T2 PO; +ASCO500T4 PO; +ASPI-630 PO; +LISI1TAB37 PO; -LISI1TAB5 PO; +POTA20TA4 PO; -POTA20TA82 PO; +QUET25TA5 PO
[2020-01-30 12:18] LABS: BASO # 0.1 x10^3/uL (0.0-0.2); BASO % 1 % (0-3); EOS # 0.2 x10^3/uL (0.0-0.7); EOS % 1 % (0-3); HEMATOCRIT 25.7 % (36.0-47.0); HEMOGLOBIN 8.6 g/dL (12.0-15.5); LYMPH # 2.8 x10^3/uL (1.0-4.8); LYMPH % 16 % (24-48); MEAN CORPUSCULAR HEMOGLOBIN 31 pg (25-35); MEAN CORPUSCULAR HGB CONC 33 g/dL (31-37); MEAN CORPUSCULAR VOLUME 94 fL (79-100); MONO # 1.9 x10^3/uL (0.0-1.1); MONO % 10 % (0-9); NEUT # 13.3 x10^3/uL (1.8-7.7); NEUT % 73 % (31-73); PLATELET COUNT 294 x10^3/uL (140-400); RED BLOOD COUNT 2.73 x10^6/uL (3.50-5.40); RED CELL DISTRIBUTION WIDTH 14.8 % (11.5-14.5); WHITE BLOOD COUNT 18.4 x10^3/uL (4.0-11.0)
[2020-01-30 12:33] LABS: CALCIUM 9.2 mg/dL (8.5-10.1); CREATININE 2.4 mg/dL (0.6-1.0); GFR 19.1; POTASSIUM 4.2 mmol/L (3.5-5.1)
[2020-01-30 12:41] LABS: ALBUMIN 2.4 g/dL (3.4-5.0); ALBUMIN/GLOBULIN RATIO 0.6 (1.0-1.7); C-REACTIVE PROTEIN 144.1 mg/L (0-3.3); TOTAL BILIRUBIN 0.2 mg/dL (0.2-1.0); TOTAL PROTEIN 6.4 g/dL (6.4-8.2)
--- NOTE | 2020-01-30 12:44 | RAD ---
Examination: CHEST AP ONLY History: Reason: sob, covid? / Spl. Instructions: / History: Comparison: 10/29/2019. Findings: AP portable upright frontal view of the chest was obtained. Patient is rotated limiting assessment. The cardiomediastinal silhouette is somewhat enlarged but stable. Slight pulmonary vasculature congestion seen. There is no pneumothorax. Possibility of small pleural effusions is raised. No acute bone abnormality. Moderate to large hiatal hernia is present. Osteopenia noted. IMPRESSION: Slight pulmonary vasculature congestion. Possible small pleural effusions. No definite focal infiltrate. Consider follow-up two-view chest x-ray for further evaluation if needed. Hiatal hernia. Electronically signed by: Adria Sierra MD (01/30/2020 12:42 PM) [id number]
[2020-01-30 13:08] LABS: % BANDS 4 % (0-9); % LYMPHS 20 % (24-48); % MONOS 11 % (0-10); % SEGS 65 % (35-66); PLT ESTIMATE ADEQUATE (ADEQUATE)
[2020-01-30] MEDS ORDERED: cefTRIAXone IV Push 1 GM VIAL. IVP ONE (13:15)
--- NOTE | 2020-01-30 13:38 | PHYS DOC ---
Past Medical History Past Medical History: Anemia, Arthritis, CAD, Cancer, CHF, Dementia, GERD, Glaucoma, Heart Disease, Hip Fracture, Hypertension, Pneumonia, Renal Failure, UTI, Other Additional Past Medical Histor: HERNIA Past Surgical History: Hip Replacement Additional Past Surgical Histo: pt does not know Smoking Status: Unknown if ever smoked Alcohol Use: None Drug Use: None General Adult EDM: Chief Complaint: FEVER HPI: HPI: Patient is a 89 year old female with past medical history of dementia who presents with fever. Patient is unable to provide any history. According to Dr. Campbell, he placed her on antibiotics for cellulitis of the face earlier this week. Despite antibiotic treatment her fevers continued to go up. She had a cough. She lives in a facility. Review of Systems: Review of Systems: Unable to obtain due to dementia Heart Score: Risk Factors: Risk Factors: DM, Current or recent (<one month) smoker, HTN, HLP, family history of CAD, obesity. Risk Scores: Score 0 - 3: 2.5% MACE over next 6 weeks - Discharge Home Score 4 - 6: 20.3% MACE over next 6 weeks - Admit for Clinical Observation Score 7 - 10: 72.7% MACE over next 6 weeks - Early Invasive Strategies Current Medications: Current Medications Medications (Trade) Dose Ordered Sig/Sen Start Time Stop Time Status Last Admin Dose Admin Ceftriaxone Sodium (Rocephin) 1 gm 1X ONCE 01/30/20 13:15 01/30/20 13:16 DC Allergies: Allergies: Allergies Coded Allergies Type Severity Reaction Last Updated Verified NSAIDS (Non-Steroidal Anti-Inflamma Allergy Unknown 01/26/19 Yes Physical Exam: PE: Constitutional: Well developed, well nourished HEENT: Normocephalic, atraumatic, oropharynx moist, EOMI, PERRL, no drainage from eyes, normal conjunctiva Neck: Supple, normal range of motion, no stridor Cardiovascular: RRR, 2+ radial pulses bilaterally, no edema Respiratory: Decreased breath sounds at bilateral bases, no respiratory distress, no wheezing/crackles Abdomen: Soft, nontender, nondistended, no masses Skin: Warm, dry, intact Extremities: No obvious deformities Neurologic: Alert and Oriented x1, no focal deficits Psychologic: Normal affect, normal judgment, normal mood. No SI/HI Current Patient Data: Labs: Laboratory Tests Test 01/30/20 12:05 White Blood Count 18.4 x10^3/uL (4.0-11.0) H Red Blood Count 2.73 x10^6/uL (3.50-5.40) L Hemoglobin 8.6 g/dL (12.0-15.5) L Hematocrit 25.7 % (36.0-47.0) L Mean Corpuscular Volume 94 fL (79-100) Mean Corpuscular Hemoglobin 31 pg (25-35) Mean Corpuscular Hemoglobin Concent 33 g/dL (31-37) Red Cell Distribution Width 14.8 % (11.5-14.5) H Platelet Count 294 x10^3/uL (140-400) Neutrophils (%) (Auto) 73 % (31-73) Lymphocytes (%) (Auto) 16 % (24-48) L Monocytes (%) (Auto) 10 % (0-9) H Eosinophils (%) (Auto) 1 % (0-3) Basophils (%) (Auto) 1 % (0-3) Neutrophils # (Auto) 13.3 x10^3/uL (1.8-7.7) H Lymphocytes # (Auto) 2.8 x10^3/uL (1.0-4.8) Monocytes # (Auto) 1.9 x10^3/uL (0.0-1.1) H Eosinophils # (Auto) 0.2 x10^3/uL (0.0-0.7) Basophils # (Auto) 0.1 x10^3/uL (0.0-0.2) Segmented Neutrophils % 65 % (35-66) Band Neutrophils % 4 % (0-9) Lymphocytes % 20 % (24-48) L Monocytes % 11 % (0-10) H Platelet Estimate Adequate (ADEQUATE) D-Dimer (Hanh) 0.69 ug/mlFEU (0.00-0.50) H Sodium Level 143 mmol/L (136-145) Potassium Level 4.2 mmol/L (3.5-5.1) Chloride Level 111 mmol/L (98-107) H Carbon Dioxide Level 19 mmol/L (21-32) L Anion Gap 13 (6-14) Blood Urea Nitrogen 45 mg/dL (7-20) H Creatinine 2.4 mg/dL (0.6-1.0) H Estimated GFR (Cockcroft-Gault) 19.1 BUN/Creatinine Ratio 19 (6-20) Glucose Level 121 mg/dL (70-99) H Calcium Level 9.2 mg/dL (8.5-10.1) Total Bilirubin 0.2 mg/dL (0.2-1.0) Aspartate Amino Transferase (AST) 11 U/L (15-37) L Alanine Aminotransferase (ALT) 8 U/L (14-59) L Alkaline Phosphatase 79 U/L (46-116) Lactate Dehydrogenase 127 U/L (81-234) Creatine Kinase 17 U/L (26-192) L C-Reactive Protein, Quantitative 144.1 mg/L (0-3.3) H Total Protein 6.4 g/dL (6.4-8.2) Albumin 2.4 g/dL (3.4-5.0) L Albumin/Globulin Ratio 0.6 (1.0-1.7) L Laboratory Tests 01/30/20 12:05 Laboratory Tests 01/30/20 12:05 Vital Signs: Vital Signs Date Time Temp Pulse Resp B/P (MAP) Pulse Ox O2 Delivery O2 Flow Rate FiO2 01/30/20 12:28 100.4 90 22 140/74 (96) 95 Room Air 100.4 EKG: EKG: [] Radiology/Procedures: Radiology/Procedures: [] Course & Med Decision Making: Course & Med Decision Making Pertinent Labs and Imaging studies reviewed. (See chart for details) Patient is a 89-year-old female who presents to the emergency room with cough and fever. At this time there is concern for the novel coronavirus 19. Patient's risk factors include living at a nursing facility, cough, fever, age. Risk stratifying work-up was ordered including chest x-ray, d-dimer, CPK, CRP, LDH, troponin, ferritin, CBC, CMP. At this time, patients labs, vitals, and exam are significant for bilateral pleural effusions, increased white blood cell count, high CRP. Due to patient's risk and clinical picture, they will need to be admitted at this time. IVFs will be limited due to concern for fluid overload in COVID-19 patients. Patient will be given empiric antibiotics due to infiltrates and risk of co-bacterial infection. Further treatment will be dictated by the inpatient team. Dragon Disclaimer: Rigoberto Disclaimer: This electronic medical record was generated, in whole or in part, using a voice recognition dictation system. Departure Departure Impression: Primary Impression: Sepsis Additional Impression: Suspected 2019 novel coronavirus infection Disposition: ADMITTED INPATIENT Referrals: BERRY CAMPBELL MD (PCP) Justicifation of Admission Dx: Justifications for Admission: Justification of Admission Dx: Yes LAURYN GAMBOA MD Jan 30, 2020 13:37
[2020-01-30 15:20] VITALS: BP 165/57
[2020-01-30] MEDS ORDERED: DIPH25TA24 PO (16:19)
[2020-01-30] MEDS ORDERED: LACT1CAP2 PO (16:19)
[2020-01-30] MEDS ORDERED: CEPH-264 PO (16:19)
[2020-01-30] MEDS ORDERED: diphenhydrAMINE HCL 25 MG CAPSULE PO PRN (17:45)
[2020-01-30] MEDS: PIPERACILLIN/TAZOBACTAM 2.25 GM in IV NORMAL SALINE 50ML 50 ML IV SCH ×2 (18:05→23:12)
[2020-01-30 19:30] VITALS: BP 167/75
[2020-01-30] MEDS: ASCORBIC ACID 500 MG TABLET PO SCH (20:12)
[2020-01-30] MEDS: ACETAMINOPHEN 500 MG TABLET PO SCH (20:12)
[2020-01-30] MEDS: LACTOBACILLUS RHAMNOSUS GG 1 CAPSULE. PO SCH (20:12)
[2020-01-30] MEDS: QUEtiapine 25 MG TABLET. PO SCH (20:13)
[2020-01-30] MEDS: NYSTATIN TOPICAL POWDER 15GM BOTTLE. TP SCH (20:13)
[2020-01-30 22:30] VITALS: BP 142/60
[2020-01-31 03:30] VITALS: BP 143/49
[2020-01-31] MEDS: PIPERACILLIN/TAZOBACTAM 2.25 GM in IV NORMAL SALINE 50ML 50 ML IV SCH ×3 (05:39→17:51)
[2020-01-31 07:00] VITALS: BP 151/65
[2020-01-31] MEDS: DEXAMETHASONE 0.1% OPHTH SOLUTION 5ML BOTTLE. OS SCH (08:54)
[2020-01-31] MEDS: FERROUS SULFATE 325 MG TABLET. PO SCH ×2 (08:55→17:51)
[2020-01-31] MEDS: ACETAMINOPHEN 500 MG TABLET PO SCH ×3 (08:55→22:19)
[2020-01-31] MEDS: PANTOPRAZOLE 40 MG TABLET.DR. PO SCH (08:55)
[2020-01-31] MEDS: MULTIVITAMIN with MINERAL TABLET. PO SCH (08:55)
[2020-01-31] MEDS: LACTOBACILLUS RHAMNOSUS GG 1 CAPSULE. PO SCH ×2 (08:55→22:18)
[2020-01-31] MEDS: ASPIRIN CHEWABLE 81 MG TABLET. PO SCH (08:55)
[2020-01-31] MEDS: QUEtiapine 25 MG TABLET. PO SCH ×3 (08:55→22:18)
[2020-01-31] MEDS: ASCORBIC ACID 500 MG TABLET PO SCH ×2 (08:55→22:18)
[2020-01-31] MEDS: NYSTATIN TOPICAL POWDER 15GM BOTTLE. TP SCH ×2 (08:55→22:13)
--- NOTE | 2020-01-31 10:27 | PN ---
DATE: 01/31/2020 SUBJECTIVE: The patient is resting, slightly propped up in bed, in no apparent distress. She is awake, alert, but very demented, does not give any useful information. Nursing staff did not voice any concern and stated that she has an uneventful night. She has been afebrile. PHYSICAL EXAMINATION: GENERAL: When I examined her this morning, she looked pale, but no jaundice, cyanosis or thyromegaly. No jugular venous distention. No lower limb edema. VITAL SIGNS: Her heart rate was 64, blood pressure was 151/65, temperature 97.1, respiratory rate was 18 and oxygen saturation was 95%. HEAD, EYES, EARS, NOSE AND THROAT: Showed normocephalic, atraumatic. NECK: Supple. CARDIAC: Normal first and second heart sounds. No gallop, rub or murmur. CHEST: Clear to auscultation. No crepitation or rhonchi. ABDOMEN: Distended, soft, nontender. NEUROLOGIC: She is extremely demented, but without any obvious lateralizing sign. All her cranial nerves intact. She moves upper extremities to much greater extent than her lower extremities. She is mostly bed bound, wheelchair bound. Her intake and output were incompletely recorded. LABORATORY DATA: Has no lab work done this morning. ASSESSMENT: 1. Left breast cellulitis. 2. Suspected 2019 novel coronavirus infection. 3. Intertriginous candidiasis with the skin below both breasts. 4. She has multiple other medical problems including: A. Hypertension. B. Chronic kidney disease. C. Anemia. PLAN: My plan is to continue with IV antibiotics for now and repeat all her labs tomorrow and await the result of the COVID-19 test. BERRY CAMPBELL MD DR: NOE/bibiana JOB#: [id number] / [id number]
[2020-01-31 11:00] VITALS: BP 150/60
--- NOTE | 2020-01-31 11:40 | HP ---
ADMIT DATE: 01/30/2020 HISTORY OF PRESENT ILLNESS: The patient is an 89-year-old female patient, a resident at [facility] in [place], who was noted by nursing staff there to be febrile. She also had cough and she was noted to have cellulitis of her left breast and also intertriginous candidiasis and we did start her on Keflex, but she continued to spike her temperature; and given that there was another resident who was COVID positive, a decision was made to transfer her to [facility] for further evaluation and treatment. The patient herself is extremely demented, does not give any useful information. She was seen in the Emergency Room. Her white cell count was found to be high at 18,400. She is known to have chronic kidney disease, creatinine of 2.4. Her D-dimer was slightly elevated and her C-reactive protein was 144.1. She was admitted. Her chest x-ray showed slight pulmonary vascular congestion, possible small pleural effusions, no definite focal infiltrate; and the patient was admitted and was started on IV ceftriaxone that I subsequently switched to linezolid and Zosyn. PAST MEDICAL HISTORY: Significant for congestive heart failure, gastroesophageal reflux disease, chronic kidney disease, hypertension, glaucoma, degenerative joint disease, chronic pain syndrome, peripheral vascular disease, generalized osteoarthritis, vitamin D deficiency, malignant neoplasm of the skin, peptic ulcer disease and diaphragmatic hernia. PAST SURGICAL HISTORY: Significant for excision of basal cell carcinoma as well as closed displaced comminuted right intertrochanteric fracture, status post open reduction and internal fixation with intramedullary nailing of the right hip fracture done on 01/27/2019. ALLERGIES: SHE IS ALLERGIC TO ALL NONSTEROIDAL ANTI-INFLAMMATORY MEDICATIONS. FAMILY HISTORY: Positive for coronary artery disease and type 2 diabetes. SOCIAL HISTORY: She is , residing at [facility] since 03/2015. She does not smoke, drink alcohol or use any recreational drugs. Her daughter is her DPOA. MEDICATIONS: She is currently on the following medications: She is on diphenhydramine 25 mg daily p.r.n. for itching; ferrous sulfate 325 mg twice a day; diltiazem CD extended release 240 mg twice a day; aspirin 81 mg once a day; acetaminophen 1000 mg 3 times a day; quetiapine fumarate 12.5 mg twice a day with breakfast and lunch; quetiapine fumarate 25 mg at bedtime; prednisolone acetate 1 drop to the left eye daily; lactobacillus acidophilus 1 capsule p.o. daily; Protonix 40 mg daily; ascorbic acid 500 mg twice a day; she is on vitamin D2 50,000 units once a week; and multivitamin 1 tablet once a day. REVIEW OF SYSTEMS: Unobtainable. PHYSICAL EXAMINATION: GENERAL: On arrival to the Emergency Room, the patient looked well and was clearly in no apparent respiratory distress. She was pale. No jaundice, cyanosis or thyromegaly. No jugular venous distention. No lower limb edema. VITAL SIGNS: Her heart rate was 90, blood pressure was 140/74, temperature was 100.4, respiratory rate 22 and oxygen saturation was 95% on room air. HEAD, EYES, EARS, NOSE AND THROAT: Showed normocephalic, atraumatic. NECK: Supple. HEART: Showed normal first and second heart sounds. No gallop or murmur. CHEST: Showed central trachea, equal bilateral expansion, air entry, vesicular sounds. I could not appreciate any crepitation or rhonchi. ABDOMEN: Slightly distended, soft, nontender. NEUROLOGICAL: She is demented, but without any obvious lateralizing signs. All her cranial nerves intact. She moves upper extremities to much good extent than lower extremities. She is mostly bedbound, chair bound, wheelchair bound. SKIN: Showed that she has marked erythema and induration of the lower aspect of the left breast with marked induration, but no fluctuation. She has also bilateral intertriginous candidiasis of the skin below the breasts. LABORATORY DATA: Her lab work on arrival showed a white cell count of 18,400, hemoglobin 8.6, hematocrit 25.7, MCV 94 and platelet count 294,000 with normal manual differential. Her chemistry showed a serum sodium of 143, potassium 4.2, chloride 111, bicarbonate 19, anion gap of 13, BUN 45, creatinine 2.4, estimated GFR was 19 mL per minute, her glucose was 121. Her lactic acid was 1. Calcium was 9.2. Total bilirubin, AST, ALT, alkaline phosphatase were normal. Her lactic acid was 127. CK was 17. C-reactive protein was 144. Total protein was 6.4. Albumin was 2.4. Her D-dimer was 0.69. IMAGING STUDIES: Her chest x-ray showed that the cardiomediastinal silhouette is somewhat enlarged, but stable; slight pulmonary vascular congestion seen; there is no pneumothorax; possibility of small pleural effusions raised; no acute bony abnormalities; she has [id number] hiatal hernia present; osteopenia is noted. ASSESSMENT AND PLAN: So, the patient was admitted to be treated for probably cellulitis of her left breast together with bilateral intertriginous candidiasis. Given that there is another resident who is tested positive for COVID-19, we also tested her COVID-19, the result of which is still pending at the time of this dictation. Meanwhile, we will continue with all her other medications. We will follow her labs closely and decide on further management accordingly. BERRY CAMPBELL MD DR: NOE/bibiana JOB#: [id number] / [id number]
[2020-01-31 15:00] VITALS: BP 142/58
[2020-01-31 19:55] VITALS: BP 138/60
[2020-01-31 23:00] VITALS: BP 161/59
[2020-02-01] MEDS: PIPERACILLIN/TAZOBACTAM 2.25 GM in IV NORMAL SALINE 50ML 50 ML IV SCH ×4 (01:21→17:14)
[2020-02-01 03:59] VITALS: BP 145/53
[2020-02-01 05:41] LABS: BASO # 0.2 x10^3/uL (0.0-0.2); BASO % 1 % (0-3); EOS # 0.5 x10^3/uL (0.0-0.7); EOS % 4 % (0-3); HEMATOCRIT 24.6 % (36.0-47.0); HEMOGLOBIN 8.2 g/dL (12.0-15.5); LYMPH # 2.5 x10^3/uL (1.0-4.8); LYMPH % 18 % (24-48); MEAN CORPUSCULAR HEMOGLOBIN 31 pg (25-35); MEAN CORPUSCULAR HGB CONC 33 g/dL (31-37); MEAN CORPUSCULAR VOLUME 92 fL (79-100); MONO # 1.4 x10^3/uL (0.0-1.1); MONO % 10 % (0-9); NEUT # 9.2 x10^3/uL (1.8-7.7); NEUT % 67 % (31-73); PLATELET COUNT 308 x10^3/uL (140-400); RED BLOOD COUNT 2.67 x10^6/uL (3.50-5.40); RED CELL DISTRIBUTION WIDTH 14.9 % (11.5-14.5); WHITE BLOOD COUNT 13.7 x10^3/uL (4.0-11.0)
[2020-02-01 05:43] LABS: ALBUMIN/GLOBULIN RATIO 0.5 (1.0-1.7); CALCIUM 8.4 mg/dL (8.5-10.1); CREATININE 2.2 mg/dL (0.6-1.0); GFR 21.1; POTASSIUM 3.9 mmol/L (3.5-5.1); TOTAL BILIRUBIN 0.2 mg/dL (0.2-1.0); TOTAL PROTEIN 5.9 g/dL (6.4-8.2)
[2020-02-01] MEDS: LACTOBACILLUS RHAMNOSUS GG 1 CAPSULE. PO SCH ×2 (07:36→20:25)
[2020-02-01] MEDS: PANTOPRAZOLE 40 MG TABLET.DR. PO SCH (07:37)
[2020-02-01] MEDS: ASPIRIN CHEWABLE 81 MG TABLET. PO SCH (07:37)
[2020-02-01] MEDS: ASCORBIC ACID 500 MG TABLET PO SCH ×2 (07:37→20:25)
[2020-02-01] MEDS: MULTIVITAMIN with MINERAL TABLET. PO SCH (07:37)
[2020-02-01] MEDS: FERROUS SULFATE 325 MG TABLET. PO SCH ×2 (07:37→17:13)
[2020-02-01] MEDS: ACETAMINOPHEN 500 MG TABLET PO SCH ×3 (07:37→20:26)
[2020-02-01] MEDS: QUEtiapine 25 MG TABLET. PO SCH ×3 (07:38→20:26)
[2020-02-01] MEDS: NYSTATIN TOPICAL POWDER 15GM BOTTLE. TP SCH ×2 (07:39→20:34)
[2020-02-01 07:40] VITALS: BP 145/52
[2020-02-01] MEDS: DEXAMETHASONE 0.1% OPHTH SOLUTION 5ML BOTTLE. OS SCH (08:00)
--- NOTE | 2020-02-01 10:01 | PN ---
DATE: 02/01/2020 SUBJECTIVE: The patient is resting, slightly propped up in bed, in no apparent distress. She is pleasantly confused. Nursing staff did not voice any concerns that she has an uneventful night. Her erythema on the left breast is improving. PHYSICAL EXAMINATION: GENERAL: When I examined her, she was pale. No jaundice, cyanosis or thyromegaly. No jugular venous distention. No limb edema. VITAL SIGNS: Her heart rate was 67, blood pressure 145/52, temperature 97.3, respiratory rate was 16, and oxygen saturation was 93%. The rest of clinical exam is stable. The erythema on the left breast is improving gradually. LABORATORY DATA: Her lab work this morning showed her white cell count is down to 13,700, hemoglobin 8.2, hematocrit 24.6, MCV 92, and platelet count 308,000. Her chemistry showed a serum sodium of 140, potassium 3.9, chloride 109, bicarbonate 20, anion gap of 11, BUN 41, creatinine 2.2, estimated GFR was 21 mL per minute. Her glucose was 105, calcium was 8.4. Total bilirubin, AST, ALT, alkaline phosphatase were normal. Total protein 5.9, albumin 2. Her COVID-19 by PCR was not detectable. Her blood cultures are so far negative. ASSESSMENT: 1. Left breast mastitis, improving. Her COVID-19 by PCR was not detectable. 2. Intertriginous candidiasis of skin below both breasts is improving. 3. She has multiple other medical problems including: A. Hypertension. B. Acute on chronic kidney injury, improving. C. Anemia. PLAN: To continue IV antibiotic. The patient can be transferred to [facility]. BERRY CAMPBELL MD DR: NOE/bibiana JOB#: [id number] / [id number]
[2020-02-01 11:02] VITALS: BP 143/61
--- NOTE | 2020-02-01 13:02 | NUR ---
patient transferred to room 414 per bed by this rn. patients sweatshirt, sock, and velcro boot transferred with patient to new room. patients daughter arlette notified of patients transfer and of negative covid test. report given to justo pink via phone. patient stable at time of transfer.
[2020-02-01 15:00] VITALS: BP 150/56
[2020-02-01 19:00] VITALS: BP 182/88
[2020-02-01 23:00] VITALS: BP 166/89
[2020-02-02] MEDS: PIPERACILLIN/TAZOBACTAM 2.25 GM in IV NORMAL SALINE 50ML 50 ML IV SCH ×4 (00:13→17:24)
[2020-02-02 03:00] VITALS: BP 152/61
[2020-02-02 07:00] VITALS: BP 157/66
--- NOTE | 2020-02-02 08:33 | PN ---
DATE: 02/02/2020 SUBJECTIVE: The patient is resting, slightly propped up, eating her breakfast. On questioning her, she denied any complaint. The nursing staff did not voice any concern and stated that generally has an uneventful night. PHYSICAL EXAMINATION: GENERAL: When I examined her, she looked pale, somewhat cachectic, but no jaundice, cyanosis or thyromegaly. No jugular venous distention. No lower limb edema. VITAL SIGNS: Her heart rate was 66, blood pressure was 157/66, temperature 97.5, respiratory rate was 18 and oxygen saturation was 93%. BREASTS: Examination of the left breast showed that the erythema largely is subsiding. The intertriginous candidiasis also improving. The rest of clinical exam is stable, has not really changed. Her intake was 1950, no output was recorded. LABORATORY DATA: Her lab work showed that her COVID-19 by PCR nondetectable. Her chemistry as of yesterday showed a serum sodium 140, potassium 3.9, chloride 109, bicarbonate 20, anion gap of 11, BUN 41, creatinine 2.2. Her hemoglobin was 8.2, hematocrit 24, white cell count is down to 13,700, platelet count 308,000. ASSESSMENT: 1. Nonlactating left breast mastitis, improving. 2. Her COVID-19 by PCR was not detectable. 3. Intertriginous candidiasis skin below both breasts is improving. 4. The patient has multiple other medical problems including: A. Hypertension. B. Acute on chronic kidney injury, improving. C. Anemia. PLAN: To continue IV antibiotic. Continue with all other medication. Continue with iron supplement. I will repeat her labs tomorrow morning and we will discharge her back to [facility] tomorrow. BERRY CAMPBELL MD DR: NOE/bibiana JOB#: [id number] / [id number]
[2020-02-02] MEDS: QUEtiapine 25 MG TABLET. PO SCH ×3 (10:20→21:59)
[2020-02-02] MEDS: FERROUS SULFATE 325 MG TABLET. PO SCH ×2 (10:20→17:21)
[2020-02-02] MEDS: PANTOPRAZOLE 40 MG TABLET.DR. PO SCH (10:20)
[2020-02-02] MEDS: ASCORBIC ACID 500 MG TABLET PO SCH ×2 (10:20→21:59)
[2020-02-02] MEDS: DEXAMETHASONE 0.1% OPHTH SOLUTION 5ML BOTTLE. OS SCH (10:20)
[2020-02-02] MEDS: ACETAMINOPHEN 500 MG TABLET PO SCH ×3 (10:20→21:59)
[2020-02-02] MEDS: MULTIVITAMIN with MINERAL TABLET. PO SCH (10:20)
[2020-02-02] MEDS: ASPIRIN CHEWABLE 81 MG TABLET. PO SCH (10:20)
[2020-02-02] MEDS: LACTOBACILLUS RHAMNOSUS GG 1 CAPSULE. PO SCH ×2 (10:20→21:59)
[2020-02-02] MEDS: NYSTATIN TOPICAL POWDER 15GM BOTTLE. TP SCH ×2 (10:20→22:03)
[2020-02-02 11:00] VITALS: BP 190/84
--- NOTE | 2020-02-02 11:51 | NUR ---
SW following. Discussed with RN. 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 load planner, Darlyn faxing updates. Pt on 2 IV abx, COVID-19 negative. SW will continue to follow.
[2020-02-02 15:00] VITALS: BP 155/66
--- NOTE | 2020-02-02 15:26 | NUR ---
Wound Care Pt has crusty area to distal toe that is not open. Pt left breast is resolving with nystatin. No open wounds noted. WC will sign off at this time, please reconsult if new wounds develop.
[2020-02-02 19:00] VITALS: BP 120/90
[2020-02-02 23:00] VITALS: BP 161/78
[2020-02-03] MEDS: PIPERACILLIN/TAZOBACTAM 2.25 GM in IV NORMAL SALINE 50ML 50 ML IV SCH ×5 (00:45→23:55)
[2020-02-03 03:00] VITALS: BP 171/67
[2020-02-03 06:06] LABS: HEMATOCRIT 23.5 % (36.0-47.0); HEMOGLOBIN 7.8 g/dL (12.0-15.5); RED BLOOD COUNT 2.56 x10^6/uL (3.50-5.40); WHITE BLOOD COUNT 13.8 x10^3/uL (4.0-11.0)
[2020-02-03 06:48] LABS: ALBUMIN/GLOBULIN RATIO 0.5 (1.0-1.7); CALCIUM 8.4 mg/dL (8.5-10.1); CREATININE 2.1 mg/dL (0.6-1.0); GFR 22.2; POTASSIUM 3.2 mmol/L (3.5-5.1); TOTAL BILIRUBIN 0.2 mg/dL (0.2-1.0)
[2020-02-03 07:15] VITALS: BP 170/75
[2020-02-03] MEDS: ASCORBIC ACID 500 MG TABLET PO SCH ×2 (08:23→21:23)
[2020-02-03] MEDS: MULTIVITAMIN with MINERAL TABLET. PO SCH (08:24)
[2020-02-03] MEDS: QUEtiapine 25 MG TABLET. PO SCH ×3 (08:24→21:24)
[2020-02-03] MEDS: PANTOPRAZOLE 40 MG TABLET.DR. PO SCH (08:24)
[2020-02-03] MEDS: FERROUS SULFATE 325 MG TABLET. PO SCH ×2 (08:24→17:43)
[2020-02-03] MEDS: ASPIRIN CHEWABLE 81 MG TABLET. PO SCH (08:24)
[2020-02-03] MEDS: LACTOBACILLUS RHAMNOSUS GG 1 CAPSULE. PO SCH ×2 (08:24→21:23)
[2020-02-03] MEDS: ACETAMINOPHEN 500 MG TABLET PO SCH ×3 (08:24→21:24)
[2020-02-03] MEDS: NYSTATIN TOPICAL POWDER 15GM BOTTLE. TP SCH ×2 (08:32→21:28)
[2020-02-03] MEDS: DEXAMETHASONE 0.1% OPHTH SOLUTION 5ML BOTTLE. OS SCH (08:33)
[2020-02-03 11:07] VITALS: BP 167/68
--- NOTE | 2020-02-03 11:16 | RAD ---
CHEST AP ONLY Clinical Indication: Shortness of breath Comparison: AP chest, 01/30/2020. Findings: The cardiomediastinal silhouette is stable. Large hiatal hernia. No acute airspace disease is seen. There is probable compressive atelectasis in the lung bases due to the hiatal hernia. There is no pneumothorax. Small bilateral pleural effusions. No acute bone abnormality. IMPRESSION: 1. No acute airspace disease. 2. Small bilateral pleural effusions. 3. Large hiatal hernia. Electronically signed by: Rodrigue Lanier MD (02/03/2020 11:13 AM) [id number]
--- NOTE | 2020-02-03 11:23 | NUR ---
SW following. Discussed with RN and Dr. Connelly, pt SOB today - having a chest xray. BINA will continue to follow for return back to [facility].
--- NOTE | 2020-02-03 12:13 | PN ---
DATE: 02/03/2020 SUBJECTIVE: The patient is an 89-year-old female patient, a resident at [facility], who was admitted with altered mental status and fever. There was suspicion that she might have COVID-19 as one of the other residents was tested positive. Luckily, her COVID-19 by PCR was not detectable. We did treat her for possible cellulitis or not lactating, mastitis of the left breast together with the intertriginous candidiasis with IV antibiotic and I was planning to discharge her back to [facility] today; however, she was clearly markedly tachypneic and I did x-ray of her chest and in discussion with the radiologist who stated that the patient's hiatal hernia has dramatically increased. The size now is 15 cm compared to most recent CT scan, which was about [address] and x-ray showed no acute airspace disease. She has small bilateral pleural effusion and large hiatal hernia and he recommended doing a CT scan of the chest and abdomen. I did consult the apartment maintenance technician to assist with her management. PHYSICAL EXAMINATION: GENERAL: When I saw her this afternoon, she was pale, but no jaundice, cyanosis or thyromegaly. No jugular venous distention. No lower limb edema. VITAL SIGNS: Her heart rate was 68, blood pressure was 167/68, temperature 97.8, respiratory rate was 24, and oxygen saturation was 95% on room air. HEAD, EYES, EARS, NOSE AND THROAT: Showed normocephalic, atraumatic. NECK: Supple. CARDIAC: Normal first and second heart sounds. No gallop or murmur. CHEST: Clear to auscultation. No crepitation or rhonchi. ABDOMEN: Distended, soft, nontender. NEUROLOGIC: She was awake, alert. She is demented without obvious lateralizing sign. Her intake over the last 24 hours was 300, no output was recorded. LABORATORY DATA: As of this morning, her white cell count continued to be high at 13,800, hemoglobin 7.8, hematocrit 23.5, MCV 92, and platelet count 146,000. Her chemistry showed a serum sodium 142, potassium 3.2, chloride 110, bicarbonate 19, anion gap of 13, BUN of 30, creatinine was 2.1, estimated GFR was 22 mL per minute. Her glucose was 94, calcium was 8.4. Serum iron, TIBC and iron saturation are all low and indicating anemia of chronic disease. Her serum ferritin was up at 80. Her total bilirubin, AST, ALT, alkaline phosphatase were normal. Total protein 6, albumin was 2. Her D-dimer was slightly elevated at 0.69; however, her COVID-19 by PCR was not detectable. PLAN: To continue with IV antibiotic for now, although I might have to change to p.o. Zosyn and Zyvox. She might require an NG tube to deflate her stomach. I did order also BMP, lactic acid and LDH and await the evaluation by the apartment maintenance technician. BERRY CAMPBELL MD DR: NOE/bibiana JOB#: [id number] / [id number]
--- NOTE | 2020-02-03 12:40 | EKG ---
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
--- NOTE | 2020-02-03 12:41 | PDOC2 ---
GI CONSULT Reason For Consult: enlarging hiatal hernia and shortness of breath HPI: HPI: 89 y/o female w/ dementia, not much meaningful history from her. D/w Dr. Connelly earlier. From care facility for cough and fever and COVID exposure (though her test was negative), treated for left breast mastitis and intertriginous candidiasis and improved. Apparently this morning c/o shortness of breath and follow-up CXR noted small bilateral pleural effusions and hiatal hernia. We are asked to see for this reason. BNP >2000. Staff present feeding lunch - tolerating diet, confused. On PPI and iron. We saw her in 01/2019 for anemia and dark stools w/ Coumadin coagulopathy after recent hip surgery. Large hiatal hernia noted on CXR then. EGD noted non- erosive gastritis and hiatal hernia. Chronic anemia - iron studies this time c/w ACD. PMH: PMH: CHF, HTN, CKD, GERD, hiatal hernia, PUD, dementia, OA, UTI, BCC, DJD, PVD, glau coma, anemia right shoulder surgery, right hip fracture/srugery, BCC excision FH: Family History: No pertinent hx Social History: ALCOHOL: none Drugs: None ROS: Per HPI. Vitals: Vitals: Vital Signs Date Time Temp Pulse Resp B/P (MAP) Pulse Ox O2 Delivery O2 Flow Rate FiO2 02/03/20 11:07 97.8 68 18 167/68 (101) 95 Room Air 97.8 Labs: Labs: Laboratory Tests Test 02/03/20 04:45 White Blood Count 13.8 x10^3/uL (4.0-11.0) Red Blood Count 2.56 x10^6/uL (3.50-5.40) Hemoglobin 7.8 g/dL (12.0-15.5) Hematocrit 23.5 % (36.0-47.0) Mean Corpuscular Volume 92 fL (79-100) Mean Corpuscular Hemoglobin 31 pg (25-35) Mean Corpuscular Hemoglobin Concent 33 g/dL (31-37) Red Cell Distribution Width 15.0 % (11.5-14.5) Platelet Count 346 x10^3/uL (140-400) Sodium Level 142 mmol/L (136-145) Potassium Level 3.2 mmol/L (3.5-5.1) Chloride Level 110 mmol/L (98-107) Carbon Dioxide Level 19 mmol/L (21-32) Anion Gap 13 (6-14) Blood Urea Nitrogen 30 mg/dL (7-20) Creatinine 2.1 mg/dL (0.6-1.0) Estimated GFR (Cockcroft-Gault) 22.2 BUN/Creatinine Ratio 14 (6-20) Glucose Level 94 mg/dL (70-99) Calcium Level 8.4 mg/dL (8.5-10.1) Iron Level 26 ug/dL (50-170) Total Iron Binding Capacity 147 ug/dL (250-450) Iron Saturation 18 % (15-34) Ferritin 80 ng/mL (8-252) Total Bilirubin 0.2 mg/dL (0.2-1.0) Aspartate Amino Transf (AST/SGOT) 15 U/L (15-37) Alanine Aminotransferase (ALT/SGPT) 8 U/L (14-59) Alkaline Phosphatase 72 U/L (46-116) Total Protein 6.0 g/dL (6.4-8.2) Albumin 2.0 g/dL (3.4-5.0) Albumin/Globulin Ratio 0.5 (1.0-1.7) BLOOD CULTURE Preliminary NO GROWTH AFTER 3 DAYS Allergies: Coded Allergies: NSAIDS (Non-Steroidal Anti-Inflamma (Verified Allergy, Intermediate, 01/31/20) Medications: Please see EMR. Imaging: Imaging: CXR 01/29 IMPRESSION: Slight pulmonary vasculature congestion. Possible small pleural effusions. No definite focal infiltrate. Consider follow-up two-view chest x-ray for further evaluation if needed. Hiatal hernia. CXR 02/02 IMPRESSION: 1. No acute airspace disease. 2. Small bilateral pleural effusions. 3. Large hiatal hernia. C/A CT 02/02 pending PE: GEN: NAD - eating soft mechanical diet HEENT: Atraumatic, PERRL LUNGS: diminished, poor effort HEART: RRR ABD: NABS, fullness to upper abdomen but soft, non-tender EXTREMITY: No edema SKIN: No rashes, no jaundice NEURO/PSYCH: confused, falls asleep during interview and while being fed by staff A/P: A/P: ?cough, fever - prior to admission - COVID-19 negative Left breast mastitis, intertriginous candidiasis skin below both breasts, GURDEEP/CKD - improved, per Dr. Connelly Chronic anemia/ACD - on iron Large hiatal hernia - EGD 01/2019 as above, on PPI CRC screen - unclear -- Known hiatal hernia. EGD last year as above. Await CT. Would be poor surgical candidate for HH repair w/ advanced age, dementia, co- morbidities, etc. Continue PPI. PAOLA KHOURY Feb 03, 2020 12:41
--- NOTE | 2020-02-03 12:49 | RAD ---
PQRS Compliance Statement: One or more of the following individualized dose reduction techniques were utilized for this examination: 1. Automated exposure control 2. Adjustment of the mA and/or kV according to patient size 3. Use of iterative reconstruction technique CT CHEST ABDOMEN WO CONTRAST Clinical Indication: Reason: SOA with enlargibg hiatal hernia / Spl. Instructions: / History: Comparison: None. Technique: Helical CT imaging of the chest and abdomen is performed without IV or oral contrast. Findings: Evaluation of vascular structures and solid organs and bowel is limited without oral and IV contrast, decreasing sensitivity for detection of pathology. There is a 2.2 cm right thyroid nodule. Mildly enlarged right paratracheal lymph node. There are subcentimeter mediastinal lymph nodes. Limited evaluation of the jesse without IV contrast. Atherosclerotic thoracic aorta. No aneurysm. There is coronary artery disease. Mild mitral annular calcification. Mild cardiomegaly. No pericardial effusion. There is a large sliding-type hiatal hernia. Approximately two thirds of the stomach is intrathoracic. There are samim-[id number]-jfyeanot bilateral pleural effusions. Consolidations in the posterior lower lobes adjacent to the effusions are probably compressive atelectasis. Respiratory motion artifact. Central airways are patent. Upper lungs are clear. There is hepatomegaly. Right hepatic lobe measures 20.1 cm. There are surgical clips near the gallbladder. There is cholelithiasis. Calcified granulomas in the spleen. Severe atherosclerotic calcification of the abdominal aorta, no aneurysm. Pancreas and adrenal glands are normal. Atrophic kidneys. No hydronephrosis. There is upper abdomen ventral hernia mesh. There is right of midline supraumbilical hernia that contains a loop of transverse colon. There is colon diverticulosis. No dilated small bowel. The appendix is not imaged. Surgical clips anterior left lower abdomen. No abdominal adenopathy or free fluid. There is exaggerated thoracic kyphosis. There is grade 1 anterolisthesis of L4 on L5. Vacuum disc phenomenon L5/S1. IMPRESSION: 1. Large sliding-type hiatal hernia. 2. Small to moderate bilateral pleural effusions. 3. Consolidations in the posterior lower lobes bilaterally are probably compressive atelectasis in the absence of clinical symptoms of pneumonia. 4. Hepatomegaly. 5. Cholelithiasis. 6. Right of midline ventral hernia containing loop of transverse colon. 7. Colon diverticulosis. 8. Right thyroid nodule. Consider outpatient thyroid ultrasound. Electronically signed by: Rodrigue Lanier MD (02/03/2020 12:46 PM) [id number]
[2020-02-03 15:09] VITALS: BP 167/63
[2020-02-03 19:00] VITALS: BP 127/58
[2020-02-03] MEDS ORDERED: POTASSIUM CHLORIDE 20 MEQ TABLET.ER. PO ONE ×2 (20:30→22:30)
[2020-02-03 23:00] VITALS: BP 163/63
[2020-02-04 03:00] VITALS: BP 155/61
[2020-02-04 05:23] LABS: BASO # 0.2 x10^3/uL (0.0-0.2); BASO % 1 % (0-3); EOS # 0.4 x10^3/uL (0.0-0.7); EOS % 3 % (0-3); HEMATOCRIT 25.4 % (36.0-47.0); HEMOGLOBIN 8.3 g/dL (12.0-15.5); LYMPH # 2.3 x10^3/uL (1.0-4.8); LYMPH % 15 % (24-48); MEAN CORPUSCULAR HEMOGLOBIN 30 pg (25-35); MEAN CORPUSCULAR HGB CONC 33 g/dL (31-37); MEAN CORPUSCULAR VOLUME 91 fL (79-100); MONO # 1.2 x10^3/uL (0.0-1.1); MONO % 8 % (0-9); NEUT % 73 % (31-73); PLATELET COUNT 376 x10^3/uL (140-400); RED BLOOD COUNT 2.78 x10^6/uL (3.50-5.40); RED CELL DISTRIBUTION WIDTH 15.3 % (11.5-14.5); WHITE BLOOD COUNT 15.2 x10^3/uL (4.0-11.0)
[2020-02-04 05:50] LABS: ALBUMIN 2.2 g/dL (3.4-5.0); ALBUMIN/GLOBULIN RATIO 0.5 (1.0-1.7); CALCIUM 8.3 mg/dL (8.5-10.1); CREATININE 1.9 mg/dL (0.6-1.0); GFR 24.9; POTASSIUM 4.4 mmol/L (3.5-5.1); TOTAL BILIRUBIN 0.2 mg/dL (0.2-1.0); TOTAL PROTEIN 6.3 g/dL (6.4-8.2)
[2020-02-04] MEDS: PIPERACILLIN/TAZOBACTAM 2.25 GM in IV NORMAL SALINE 50ML 50 ML IV SCH (06:14)
[2020-02-04 07:00] VITALS: BP 139/114
[2020-02-04] MEDS: ACETAMINOPHEN 500 MG TABLET PO SCH ×3 (08:21→21:26)
[2020-02-04] MEDS: LACTOBACILLUS RHAMNOSUS GG 1 CAPSULE. PO SCH ×2 (08:21→21:26)
[2020-02-04] MEDS: ASPIRIN CHEWABLE 81 MG TABLET. PO SCH (08:21)
[2020-02-04] MEDS: PANTOPRAZOLE 40 MG TABLET.DR. PO SCH (08:21)
[2020-02-04] MEDS: MULTIVITAMIN with MINERAL TABLET. PO SCH (08:22)
[2020-02-04] MEDS: FERROUS SULFATE 325 MG TABLET. PO SCH ×2 (08:22→17:51)
[2020-02-04] MEDS: QUEtiapine 25 MG TABLET. PO SCH ×3 (08:22→21:26)
[2020-02-04] MEDS: ASCORBIC ACID 500 MG TABLET PO SCH ×2 (08:22→21:27)
[2020-02-04] MEDS: DEXAMETHASONE 0.1% OPHTH SOLUTION 5ML BOTTLE. OS SCH (08:23)
[2020-02-04] MEDS: NYSTATIN TOPICAL POWDER 15GM BOTTLE. TP SCH ×2 (08:23→21:27)
--- NOTE | 2020-02-04 09:15 | NUR ---
SW following. Discussed with RN, pt WBC elevated today. Dr. Connelly plans to consult ID. Pt apparently has a cough today, RN discussing with Dr. Connelly re possible repeat COVID-19 test. SW will continue to follow.
--- NOTE | 2020-02-04 10:46 | PDOC ---
Infectious Disease Note Vital Sign Vital Signs Vital Signs Date Time Temp Pulse Resp B/P (MAP) Pulse Ox O2 Delivery O2 Flow Rate FiO2 02/04/20 08:22 72 139/114 02/04/20 07:00 97.0 16 96 Room Air 97.0 Labs Lab Laboratory Tests Test 02/03/20 12:15 02/04/20 05:00 Lactic Acid Level 0.9 mmol/L (0.4-2.0) Lactate Dehydrogenase 160 U/L (81-234) IX-Mnc-N-Type Natriuretic Peptide 2760 pg/mL (0-449) White Blood Count 15.2 x10^3/uL (4.0-11.0) Red Blood Count 2.78 x10^6/uL (3.50-5.40) Hemoglobin 8.3 g/dL (12.0-15.5) Hematocrit 25.4 % (36.0-47.0) Mean Corpuscular Volume 91 fL (79-100) Mean Corpuscular Hemoglobin 30 pg (25-35) Mean Corpuscular Hemoglobin Concent 33 g/dL (31-37) Red Cell Distribution Width 15.3 % (11.5-14.5) Platelet Count 376 x10^3/uL (140-400) Neutrophils (%) (Auto) 73 % (31-73) Lymphocytes (%) (Auto) 15 % (24-48) Monocytes (%) (Auto) 8 % (0-9) Eosinophils (%) (Auto) 3 % (0-3) Basophils (%) (Auto) 1 % (0-3) Neutrophils # (Auto) 11.0 x10^3/uL (1.8-7.7) Lymphocytes # (Auto) 2.3 x10^3/uL (1.0-4.8) Monocytes # (Auto) 1.2 x10^3/uL (0.0-1.1) Eosinophils # (Auto) 0.4 x10^3/uL (0.0-0.7) Basophils # (Auto) 0.2 x10^3/uL (0.0-0.2) Sodium Level 143 mmol/L (136-145) Potassium Level 4.4 mmol/L (3.5-5.1) Chloride Level 113 mmol/L (98-107) Carbon Dioxide Level 19 mmol/L (21-32) Anion Gap 11 (6-14) Blood Urea Nitrogen 25 mg/dL (7-20) Creatinine 1.9 mg/dL (0.6-1.0) Estimated GFR (Cockcroft-Gault) 24.9 BUN/Creatinine Ratio 13 (6-20) Glucose Level 100 mg/dL (70-99) Calcium Level 8.3 mg/dL (8.5-10.1) Total Bilirubin 0.2 mg/dL (0.2-1.0) Aspartate Amino Transf (AST/SGOT) 14 U/L (15-37) Alanine Aminotransferase (ALT/SGPT) 12 U/L (14-59) Alkaline Phosphatase 70 U/L (46-116) Total Protein 6.3 g/dL (6.4-8.2) Albumin 2.2 g/dL (3.4-5.0) Albumin/Globulin Ratio 0.5 (1.0-1.7) Micro Microbiology 01/30/20 Blood Culture - Preliminary, Resulted NO GROWTH AFTER 4 DAYS Objective Assessment Leukocytosis GURDEEP H/o UTI with resistant Ecoli/VRE Dementia Chronic H/H Ventral hernia - nontender Thyroid nodule Yeast skin infection Plan Plan of Care Procalcitonin UA C and S - straight cath D/c Zyvox and Zosyn as WBC increasing despite Add Meropenem/micafungin F/u labs D/w nursing Thank you # [id number] ATIYA PALOMO MD Feb 04, 2020 10:46
[2020-02-04 11:00] VITALS: BP 128/98
--- NOTE | 2020-02-04 11:04 | PN ---
DATE: 02/04/2020 SUBJECTIVE: The patient is resting slightly propped up in bed, no apparent distress. On questioning her, she keeps stating that she is not feeling well. She has funny feeling but she was unable to describe her complaint. Her white cell count is definitely going up 15,200. The erythema on the right side of the face and the left breast seems to be improving. Her lab work including her hypokalemia has definitely improved. In fact, her creatinine has improved further today to 1.9. Her iron studies are all consistent with anemia of chronic disease as her serum iron, TIBC and iron saturation are all on the lower side and her serum ferritin is normal at 80. Her blood cultures so far are negative. She continues to be on IV vancomycin and she is on piperacillin and tazobactam as well as linezolid. PHYSICAL EXAMINATION: GENERAL: When I saw her this morning, she was pale, but no jaundice, cyanosis or thyromegaly. No jugular venous distention. No limb edema. VITAL SIGNS: Her heart rate was 72, blood pressure was 139/114, temperature was 97, respiratory rate was 16, and oxygen saturation was 96%. HEAD, EYES, EARS, NOSE AND THROAT: Normocephalic, atraumatic. NECK: Supple. HEART: Showed normal first and second heart sounds. No gallop or murmur. CHEST: Clear to auscultation. No crepitation or rhonchi. ABDOMEN: Distended, soft, nontender. NEUROLOGIC: She is obviously extremely demented, does not give any useful information. LABORATORY DATA: Her lab work this morning showed a serum sodium 143, potassium 4.4, chloride 113, bicarbonate 19, anion gap of 11, BUN 25, creatinine 1.9, estimated GFR was 25 mL per minute. Her glucose is 100, calcium was 8.3. Total bilirubin, AST, ALT, alkaline phosphatase were normal. Total protein 6.3, albumin 2.2. Her white cell count was up to 15,200, hemoglobin 8.3, hematocrit 25, MCV 91, and platelet count 376,000. Her D-dimer was slightly elevated at 0.69 and her COVID-19 by PCR was not detectable. I did a CT scan of the abdomen and pelvis yesterday, which basically showed that she has large sliding type hiatal hernia. She has small to moderate bilateral pleural effusion and consolidation in the posterior lower lobes bilaterally, probably compressive atelectasis in the absence of clinical symptoms of pneumonia. Hepatomegaly. Cholelithiasis. Right midline ventral hernia containing loops of transverse colon, colon diverticulosis, right thyroid nodule, consider outpatient thyroid ultrasound. In summary, this is an 89-year-old female patient with right-sided facial cellulitis, probably left breast mastitis improving, intertriginous candidiasis of the skin below both breasts also improving. The patient has multiple other medical problems including: A. Hypertension. B. Acute on chronic kidney injury, improving. C. Anemia, however, she has leukocytosis and CT scan showed infiltrate versus compressive atelectasis with bilateral pleural effusion. I did consult Dr. Girard to assist in her management and if he thinks that she is ready to go back, I will discharge her. BERYR CAMPBELL MD DR: NOE/bibiana JOB#: [id number] / [id number]
[2020-02-04] MEDS: MEROPENEM 500 MG in IV NORMAL SALINE 50ML 50 ML IV SCH ×2 (11:27→21:37)
--- NOTE | 2020-02-04 11:49 | CONS ---
DATE OF CONSULTATION: 02/04/2020 LOCATION: The patient is in room 414. REQUESTING PHYSICIAN: Dr. Víctor Connelly. REASON FOR CONSULTATION: Leukocytosis. HISTORY OF PRESENT ILLNESS: The patient is a pleasant 89-year-old female with longstanding history of dementia, who has had previous urinary tract infections with resistant E. coli, VRE and was admitted to [facility] from [facility] in [place] secondary to reports of fever and cough. She has got some left breast candidiasis. She was on cephalexin. On arrival, her white count was 18.4. Her creatinine was 2.4. Chest x-ray had slight pulmonary vascular congestion and possible small pleural effusions. No definitive focal infiltrate. She was given a dose of Rocephin, but then changed to Zosyn and Zyvox. Her white blood cell count improved down to 13.7, but then has increased to 15.2 today. She did undergo a repeat chest x-ray, which showed no acute airspace disease, small bilateral pleural effusions and large hiatal hernia. She then underwent a CT scan of the chest and abdomen. She had a large sliding hiatal hernia, small to moderate bilateral pleural effusions, consolidations in posterior lower lobes bilaterally, probably compressive. She has hepatomegaly, cholelithiasis, right midline ventral hernia containing loop of transverse colon and a right thyroid nodule. Because of her leukocytosis, I have been asked to evaluate the patient. Currently, she is sitting upright in bed. She denies any problems at all. Has no pain. No fevers or chills or sweats. She has no cough, no headaches, no sore throat. Denies any constipation, dysuria, frequency or urgency. PAST MEDICAL HISTORY: Positive for previous Escherichia coli urinary tract infection in 12/2018. A culture a year ago also had a VRE in her urine from 01/2019. Recently 10/29/2019, she had E. coli, resistant to Augmentin, ampicillin, cefazolin, Cipro, levofloxacin, Zosyn, tetracycline and Bactrim. She has a history of dementia, peptic ulcer disease, gastroesophageal reflux, large hiatal hernia, hypertension, congestive heart failure, dementia, osteoarthritis, hip fracture, right GI bleed, chronic kidney disease, coronary artery disease. History of MRSA positivity. PAST SURGICAL HISTORY: Positive for closed reduction and IM nailing of right hip fracture, right shoulder surgery, BCC excision. REVIEW OF SYSTEMS: Otherwise negative except for mentioned above. SOCIAL HISTORY: She is a [facility] resident. No alcohol or drugs. FAMILY HISTORY: Noncontributory. ALLERGIES: LISTED NONSTEROIDALS. CURRENT MEDICATIONS: Include Zyvox, Zosyn, vitamin C, aspirin, diltiazem, ferrous sulfate, lactobacillus, multivitamin topical nystatin, Protonix, Seroquel. PHYSICAL EXAMINATION: VITAL SIGNS: She is afebrile. Temperature is 97, pulse 72, respirations 16, blood pressure 139/114, satting 96% on room air. HEENT: She has normal conjunctivae. Her right eye is scarred over. Oral cavity; oropharynx is moist. NECK: Supple, no JVD. LUNGS: Clear to auscultation. HEART: S1, S2. ABDOMEN: She has a ventral hernia in her mid abdomen. It is nontender. Has no guarding. Abdomen is soft with positive bowel sounds. EXTREMITIES: Without clubbing, cyanosis or gross edema. SKIN: Warm to touch without generalized signs of rash. She does have some yeast about her breasts. NEUROLOGIC: She moves all extremities, answers questions, but she is confused. LABORATORY VALUES: White count 15.2, hemoglobin 8.3, platelets of 376, neutrophils 73, lymphs 15. Creatinine improved to 1.9, glucose of 100. She had normal liver function study tests. COVID was negative on the 3rd. Radiology reviewed in history of present illness. IMPRESSION: 1. Leukocytosis. 2. Acute kidney injury. 3. 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 4. Dementia. 5. Chronic hiatal hernia. 6. Ventral hernia, nontender. 7. Thyroid nodule. 8. Yeast skin infection. RECOMMENDATIONS: Obtain a procalcitonin. Obtain a UA, C and S with a straight catheterization. This was discussed with nursing. We will discontinue Zyvox and Zosyn as her White blood cells increased despite so will meropenem and micafungin. Follow up on labs. This was discussed with nursing. Thank you for allowing me to participate in the patient's care. If you have any questions, please do not hesitate to contact me. ATIYA PALOMO MD DR: JANET/bibiana JOB#: [id number] / [id number] ASHLEE
[2020-02-04 11:50] LABS: BILIRUBIN,URINE NEGATIVE (NEG); CLARITY,URINE CLOUDY; COLOR,URINE YELLOW; NITRITE,URINE NEGATIVE (NEG); PH,URINE 5.5 (<5.0-8.0); PROTEIN,URINE 100 mg/dL (NEG-TRACE); UROBILINOGEN,URINE 0.2 mg/dL (0.2 mg/dL)
[2020-02-04 12:00] LABS: SQUAMOUS EPITHELIAL CELL,UR MOD /LPF
[2020-02-04 12:01] LABS: AMORPHOUS SEDIMENT,UR PRESENT /HPF; BACTERIA,URINE FEW /HPF (0-FEW); RBC,URINE 0 /HPF (0-2); WBC,URINE 20-40 /HPF (0-4)
--- NOTE | 2020-02-04 12:04 | PDOC ---
Subjective: Subjective: No complaints. Objective: Vital Signs: Vital Signs Date Time Temp Pulse Resp B/P (MAP) Pulse Ox O2 Delivery O2 Flow Rate FiO2 02/04/20 11:00 97.4 68 16 128/98 (108) 97 Room Air 97.4 Labs: Laboratory Tests Test 02/03/20 12:15 02/04/20 05:00 Lactic Acid Level 0.9 mmol/L Lactate Dehydrogenase 160 U/L AQ-Hte-G-Type Natriuretic Peptide 2760 pg/mL White Blood Count 15.2 x10^3/uL Red Blood Count 2.78 x10^6/uL Hemoglobin 8.3 g/dL Hematocrit 25.4 % Mean Corpuscular Volume 91 fL Mean Corpuscular Hemoglobin 30 pg Mean Corpuscular Hemoglobin Concent 33 g/dL Red Cell Distribution Width 15.3 % Platelet Count 376 x10^3/uL Neutrophils (%) (Auto) 73 % Lymphocytes (%) (Auto) 15 % Monocytes (%) (Auto) 8 % Eosinophils (%) (Auto) 3 % Basophils (%) (Auto) 1 % Neutrophils # (Auto) 11.0 x10^3/uL Lymphocytes # (Auto) 2.3 x10^3/uL Monocytes # (Auto) 1.2 x10^3/uL Eosinophils # (Auto) 0.4 x10^3/uL Basophils # (Auto) 0.2 x10^3/uL Sodium Level 143 mmol/L Potassium Level 4.4 mmol/L Chloride Level 113 mmol/L Carbon Dioxide Level 19 mmol/L Anion Gap 11 Blood Urea Nitrogen 25 mg/dL Creatinine 1.9 mg/dL Estimated GFR (Cockcroft-Gault) 24.9 BUN/Creatinine Ratio 13 Glucose Level 100 mg/dL Calcium Level 8.3 mg/dL Total Bilirubin 0.2 mg/dL Aspartate Amino Transf (AST/SGOT) 14 U/L Alanine Aminotransferase (ALT/SGPT) 12 U/L Alkaline Phosphatase 70 U/L Total Protein 6.3 g/dL Albumin 2.2 g/dL Albumin/Globulin Ratio 0.5 Procalcitonin 0.15 ng/mL Imaging: C/A CT 02/02 IMPRESSION: 1. Large sliding-type hiatal hernia. 2. Small to moderate bilateral pleural effusions. 3. Consolidations in the posterior lower lobes bilaterally are probably compressive atelectasis in the absence of clinical symptoms of pneumonia. 4. Hepatomegaly. 5. Cholelithiasis. 6. Right of midline ventral hernia containing loop of transverse colon. 7. Colon diverticulosis. 8. Right thyroid nodule. Consider outpatient thyroid ultrasound. PE: GEN: was asleep LUNGS: CTAB HEART: RRR ABD: soft, non-tender NEURO/PSYCH: confused A/P: Abnormal chest imaging, leukocytosis (worse), GURDEEP (better) Dementia Chronic anemia/ACD - on iron Large hiatal hernia - EGD 01/2019, on PPI, poor surgical candidate Hepatomegaly, cholelithiasis, ventral hernia w/ loop of transverse colon, diverticulosis, thyroid nodule - noted on CT yesterday -- Continue same per GI. Justicifation of Admission Dx: Justifications for Admission: Justification of Admission Dx: Yes PAOLA KHOURY Feb 04, 2020 12:04
[2020-02-04] MEDS: MICAFUNGIN 100 MG in IV DEXTROSE 5% 100ML 100 ML IV SCH (12:09)
[2020-02-04 15:00] VITALS: BP 136/102
[2020-02-04 19:00] VITALS: BP 179/70
[2020-02-04 23:00] VITALS: BP 180/59
[2020-02-05] VITALS (7 sets, daily range): BP systolic 103–199; BP diastolic 58–99
[2020-02-05 04:32] LABS: BASO # 0.1 x10^3/uL (0.0-0.2); BASO % 1 % (0-3); EOS # 0.3 x10^3/uL (0.0-0.7); EOS % 2 % (0-3); HEMATOCRIT 23.6 % (36.0-47.0); HEMOGLOBIN 7.8 g/dL (12.0-15.5); LYMPH # 2.6 x10^3/uL (1.0-4.8); LYMPH % 17 % (24-48); MEAN CORPUSCULAR HEMOGLOBIN 31 pg (25-35); MEAN CORPUSCULAR HGB CONC 33 g/dL (31-37); MEAN CORPUSCULAR VOLUME 92 fL (79-100); MONO # 1.1 x10^3/uL (0.0-1.1); MONO % 7 % (0-9); NEUT # 11.2 x10^3/uL (1.8-7.7); NEUT % 73 % (31-73); PLATELET COUNT 382 x10^3/uL (140-400); RED BLOOD COUNT 2.57 x10^6/uL (3.50-5.40); RED CELL DISTRIBUTION WIDTH 15.1 % (11.5-14.5); WHITE BLOOD COUNT 15.3 x10^3/uL (4.0-11.0)
[2020-02-05 05:08] LABS: CALCIUM 8.4 mg/dL (8.5-10.1); CREATININE 1.9 mg/dL (0.6-1.0); GFR 24.9; POTASSIUM 4.1 mmol/L (3.5-5.1)
[2020-02-05] MEDS: MEROPENEM 500 MG in IV NORMAL SALINE 50ML 50 ML IV SCH ×3 (06:01→22:13)
[2020-02-05] MEDS: DEXAMETHASONE 0.1% OPHTH SOLUTION 5ML BOTTLE. OS SCH (08:00)
[2020-02-05] MEDS: ACETAMINOPHEN 500 MG TABLET PO SCH ×3 (08:22→22:14)
[2020-02-05] MEDS: FERROUS SULFATE 325 MG TABLET. PO SCH ×2 (08:22→18:01)
[2020-02-05] MEDS: QUEtiapine 25 MG TABLET. PO SCH ×3 (08:22→22:15)
[2020-02-05] MEDS: ASPIRIN CHEWABLE 81 MG TABLET. PO SCH (08:22)
[2020-02-05] MEDS: PANTOPRAZOLE 40 MG TABLET.DR. PO SCH (08:22)
[2020-02-05] MEDS: ASCORBIC ACID 500 MG TABLET PO SCH ×2 (08:23→22:14)
[2020-02-05] MEDS: LACTOBACILLUS RHAMNOSUS GG 1 CAPSULE. PO SCH ×2 (08:23→22:14)
[2020-02-05] MEDS: MULTIVITAMIN with MINERAL TABLET. PO SCH (08:23)
[2020-02-05] MEDS: NYSTATIN TOPICAL POWDER 15GM BOTTLE. TP SCH ×2 (09:00→22:16)
--- NOTE | 2020-02-05 09:27 | PDOC ---
Infectious Disease Note Subjective Subjective States her breathing is better No F/C/S/N/V/D/pain or rash Vital Sign Vital Signs Vital Signs Date Time Temp Pulse Resp B/P (MAP) Pulse Ox O2 Delivery O2 Flow Rate FiO2 02/05/20 08:23 67 174/65 02/05/20 07:00 98.3 18 98 Room Air 98.3 Physical Exam PHYSICAL EXAM HEENT: She has normal conjunctivae. Her right eye is scarred over. Oral cavity; oropharynx is moist. NECK: Supple, no JVD. LUNGS: Clear to auscultation. HEART: S1, S2. ABDOMEN: She has a ventral hernia in her mid abdomen. It is nontender. Has no guarding. Abdomen is soft with positive bowel sounds. EXTREMITIES: Without clubbing, cyanosis or gross edema. SKIN: Warm to touch without generalized signs of rash. She does have some yeast about her breasts. NEUROLOGIC: She moves all extremities, answers questions, but she is confused. Labs Lab Laboratory Tests Test 02/04/20 11:15 02/05/20 03:30 Urine Collection Type Unknown Urine Color Yellow Urine Clarity Cloudy Urine pH 5.5 (<5.0-8.0) Urine Specific [place] 1.020 (1.000-1.030) Urine Protein 100 mg/dL (NEG-TRACE) Urine Glucose (UA) Negative mg/dL (NEG) Urine Ketones (Stick) Negative mg/dL (NEG) Urine Blood Negative (NEG) Urine Nitrite Negative (NEG) Urine Bilirubin Negative (NEG) Urine Urobilinogen Dipstick 0.2 mg/dL (0.2 mg/dL) Urine Leukocyte Esterase Moderate (NEG) Urine RBC 0 /HPF (0-2) Urine WBC 20-40 /HPF (0-4) Urine Squamous Epithelial Cells Mod /LPF Urine Amorphous Sediment Present /HPF Urine Bacteria Few /HPF (0-FEW) Urine Mucus Slight /LPF White Blood Count 15.3 x10^3/uL (4.0-11.0) Red Blood Count 2.57 x10^6/uL (3.50-5.40) Hemoglobin 7.8 g/dL (12.0-15.5) Hematocrit 23.6 % (36.0-47.0) Mean Corpuscular Volume 92 fL (79-100) Mean Corpuscular Hemoglobin 31 pg (25-35) Mean Corpuscular Hemoglobin Concent 33 g/dL (31-37) Red Cell Distribution Width 15.1 % (11.5-14.5) Platelet Count 382 x10^3/uL (140-400) Neutrophils (%) (Auto) 73 % (31-73) Lymphocytes (%) (Auto) 17 % (24-48) Monocytes (%) (Auto) 7 % (0-9) Eosinophils (%) (Auto) 2 % (0-3) Basophils (%) (Auto) 1 % (0-3) Neutrophils # (Auto) 11.2 x10^3/uL (1.8-7.7) Lymphocytes # (Auto) 2.6 x10^3/uL (1.0-4.8) Monocytes # (Auto) 1.1 x10^3/uL (0.0-1.1) Eosinophils # (Auto) 0.3 x10^3/uL (0.0-0.7) Basophils # (Auto) 0.1 x10^3/uL (0.0-0.2) Sodium Level 142 mmol/L (136-145) Potassium Level 4.1 mmol/L (3.5-5.1) Chloride Level 111 mmol/L (98-107) Carbon Dioxide Level 18 mmol/L (21-32) Anion Gap 13 (6-14) Blood Urea Nitrogen 30 mg/dL (7-20) Creatinine 1.9 mg/dL (0.6-1.0) Estimated GFR (Cockcroft-Gault) 24.9 Glucose Level 91 mg/dL (70-99) Calcium Level 8.4 mg/dL (8.5-10.1) Micro Microbiology 01/30/20 Blood Culture - Preliminary, Resulted NO GROWTH AFTER 4 DAYS Objective Assessment Leukocytosis - stable - Procal only mild elevation but could be elevated with GURDEEP GURDEEP - stable H/o UTI with resistant Ecoli/VRE Dementia Chronic H/H Ventral hernia - nontender Thyroid nodule Yeast skin infection Plan Plan of Care F/u urine cult Added Meropenem/micafungin 02/03 F/u labs in am D/w nursing ATIYA PALOMO MD Feb 05, 2020 09:27
[2020-02-05] MEDS: MICAFUNGIN 100 MG in IV DEXTROSE 5% 100ML 100 ML IV SCH (10:42)
--- NOTE | 2020-02-05 11:01 | PDOC ---
Objective: Objective: Reviewed chart. Stools recorded. Vital Signs: Vital Signs Date Time Temp Pulse Resp B/P (MAP) Pulse Ox O2 Delivery O2 Flow Rate FiO2 02/05/20 08:23 67 174/65 02/05/20 07:00 98.3 18 98 Room Air 98.3 Labs: Laboratory Tests Test 02/04/20 11:15 02/05/20 03:30 Urine Collection Type Unknown Urine Color Yellow Urine Clarity Cloudy Urine pH 5.5 Urine Specific [place] 1.020 Urine Protein 100 mg/dL Urine Glucose (UA) Negative mg/dL Urine Ketones (Stick) Negative mg/dL Urine Blood Negative Urine Nitrite Negative Urine Bilirubin Negative Urine Urobilinogen Dipstick 0.2 mg/dL Urine Leukocyte Esterase Moderate Urine RBC 0 /HPF Urine WBC 20-40 /HPF Urine Squamous Epithelial Cells Mod /LPF Urine Amorphous Sediment Present /HPF Urine Bacteria Few /HPF Urine Mucus Slight /LPF White Blood Count 15.3 x10^3/uL Red Blood Count 2.57 x10^6/uL Hemoglobin 7.8 g/dL Hematocrit 23.6 % Mean Corpuscular Volume 92 fL Mean Corpuscular Hemoglobin 31 pg Mean Corpuscular Hemoglobin Concent 33 g/dL Red Cell Distribution Width 15.1 % Platelet Count 382 x10^3/uL Neutrophils (%) (Auto) 73 % Lymphocytes (%) (Auto) 17 % Monocytes (%) (Auto) 7 % Eosinophils (%) (Auto) 2 % Basophils (%) (Auto) 1 % Neutrophils # (Auto) 11.2 x10^3/uL Lymphocytes # (Auto) 2.6 x10^3/uL Monocytes # (Auto) 1.1 x10^3/uL Eosinophils # (Auto) 0.3 x10^3/uL Basophils # (Auto) 0.1 x10^3/uL Sodium Level 142 mmol/L Potassium Level 4.1 mmol/L Chloride Level 111 mmol/L Carbon Dioxide Level 18 mmol/L Anion Gap 13 Blood Urea Nitrogen 30 mg/dL Creatinine 1.9 mg/dL Estimated GFR (Cockcroft-Gault) 24.9 Glucose Level 91 mg/dL Calcium Level 8.4 mg/dL PE: GEN: NAD LUNGS: room air ABD: non-distended NEURO/PSYCH: sleeping, not awakened A/P: Dementia Leukocytosis, chronic anemia/ACD Large hiatal hernia - poor surgical candidate -- Continue same per GI. Justicifation of Admission Dx: Justifications for Admission: Justification of Admission Dx: Yes PAOLA KHOURY Feb 05, 2020 11:01
--- NOTE | 2020-02-05 11:31 | NUR ---
Notified Dr. Connelly of elevated BP, orders rec'd
--- NOTE | 2020-02-05 11:34 | PN ---
DATE: 02/05/2020 SUBJECTIVE: The patient is resting, slightly propped up in bed, no apparent distress. She is pleasantly confused. Denied any complaint. The nursing staff stated that her blood pressure is somewhat elevated today. She is afebrile. However, her white cell count continued to be for some reason elevated. Urinalysis was unremarkable. Her blood cultures are so far still negative. PHYSICAL EXAMINATION: GENERAL: When I examined her, she was pale, but not jaundiced, cyanosis or thyromegaly. No jugular venous distention. No lower limb edema. VITAL SIGNS: Her heart rate was 73, blood pressure was 179/70, temperature was 99.2, respiratory rate was 16, and oxygen saturation was 92% on room air. HEAD, EYES, EARS, NOSE AND THROAT: Showed normocephalic, atraumatic. NECK: Supple. CARDIAC: Normal first and second heart sounds. No gallop or murmur. CHEST: Clear to auscultation. No crepitation or rhonchi. ABDOMEN: Distended, soft, nontender. NEUROLOGIC: She is demented, but without any obvious lateralizing sign. She is mostly bedbound, wheelchair bound. Her intake was 590, no output was recorded. LABORATORY DATA: Her lab work this morning showed a serum sodium of 142, potassium 4.1, chloride 111, bicarbonate 18, anion gap of 13, BUN 30, creatinine 1.9, estimated GFR was 24 mL per minute. Her glucose was 91, calcium was 8.4. Her procalcitonin is slightly up at 0.15. Her white cell count continued to be elevated at 15,300, hemoglobin 7.8, hematocrit 23.6, MCV 92, and platelet count 382,000. Her urinalysis showed the urine was yellow, cloudy with a pH of 5.5, specific gravity of 1.020. There was small amount of protein. The urine was negative for glucose, ketones, blood, and nitrite. There was moderate amount of leukocyte esterase, 20-40 wbc's, and few bacteria. ASSESSMENT: 1. Hypertension, not optimally controlled despite being on Cardizem 240 mg twice a day. 2. Acute on chronic kidney injury, stabilized. 3. Anemia. 4. Hiatal hernia. The patient was seen by Dr. Almanzar and she is now on meropenem and anidulafungin. I will add hydralazine to control her blood pressure. BERRY CAMPBELL MD DR: NOE/bibiana JOB#: [id number] / [id number]
[2020-02-05] MEDS: hydrALAZINE 25 MG TABLET PO SCH ×2 (14:17→22:14)
[2020-02-06 03:00] VITALS: BP 174/60
[2020-02-06 05:10] LABS: BASO # 0.1 x10^3/uL (0.0-0.2); BASO % 1 % (0-3); EOS # 0.3 x10^3/uL (0.0-0.7); EOS % 2 % (0-3); HEMATOCRIT 23.7 % (36.0-47.0); HEMOGLOBIN 7.8 g/dL (12.0-15.5); LYMPH % 23 % (24-48); MEAN CORPUSCULAR HEMOGLOBIN 30 pg (25-35); MEAN CORPUSCULAR HGB CONC 33 g/dL (31-37); MEAN CORPUSCULAR VOLUME 93 fL (79-100); MONO # 1.1 x10^3/uL (0.0-1.1); MONO % 9 % (0-9); NEUT # 8.8 x10^3/uL (1.8-7.7); NEUT % 66 % (31-73); PLATELET COUNT 352 x10^3/uL (140-400); RED BLOOD COUNT 2.56 x10^6/uL (3.50-5.40); RED CELL DISTRIBUTION WIDTH 15.6 % (11.5-14.5); WHITE BLOOD COUNT 13.3 x10^3/uL (4.0-11.0)
[2020-02-06 06:30] LABS: ALBUMIN 2.1 g/dL (3.4-5.0); ALBUMIN/GLOBULIN RATIO 0.5 (1.0-1.7); CREATININE 1.8 mg/dL (0.6-1.0); GFR 26.6; POTASSIUM 3.7 mmol/L (3.5-5.1); TOTAL BILIRUBIN 0.1 mg/dL (0.2-1.0)
[2020-02-06] MEDS: MEROPENEM 500 MG in IV NORMAL SALINE 50ML 50 ML IV SCH (06:40)
[2020-02-06 07:15] VITALS: BP 170/61
[2020-02-06] MEDS ORDERED: ERGOCALCIFEROL (VITAMIN D2) 50,000 UNIT CAPSULE. PO SCH (09:00)
[2020-02-06] MEDS: ASPIRIN CHEWABLE 81 MG TABLET. PO SCH (09:10)
[2020-02-06] MEDS: FERROUS SULFATE 325 MG TABLET. PO SCH (09:10)
[2020-02-06] MEDS: QUEtiapine 25 MG TABLET. PO SCH ×2 (09:10→11:50)
[2020-02-06] MEDS: PANTOPRAZOLE 40 MG TABLET.DR. PO SCH (09:10)
[2020-02-06] MEDS: ASCORBIC ACID 500 MG TABLET PO SCH (09:11)
[2020-02-06] MEDS: MULTIVITAMIN with MINERAL TABLET. PO SCH (09:11)
[2020-02-06] MEDS: LACTOBACILLUS RHAMNOSUS GG 1 CAPSULE. PO SCH (09:11)
[2020-02-06] MEDS: hydrALAZINE 25 MG TABLET PO SCH ×2 (09:11→14:22)
[2020-02-06] MEDS: NYSTATIN TOPICAL POWDER 15GM BOTTLE. TP SCH (09:12)
[2020-02-06] MEDS: DEXAMETHASONE 0.1% OPHTH SOLUTION 5ML BOTTLE. OS SCH (09:12)
[2020-02-06] MEDS: ACETAMINOPHEN 500 MG TABLET PO SCH ×2 (09:14→14:21)
[2020-02-06] MEDS: MICAFUNGIN 100 MG in IV DEXTROSE 5% 100ML 100 ML IV SCH (09:15)
--- NOTE | 2020-02-06 09:29 | PDOC ---
Subjective: Subjective: Abdomen "a little swollen." Says she ate breakfast. Objective: Vital Signs: Vital Signs Date Time Temp Pulse Resp B/P (MAP) Pulse Ox O2 Delivery O2 Flow Rate FiO2 02/06/20 09:12 59 170/61 02/06/20 07:15 98.1 16 94 Room Air 98.1 Labs: Laboratory Tests Test 02/06/20 03:28 White Blood Count 13.3 x10^3/uL Red Blood Count 2.56 x10^6/uL Hemoglobin 7.8 g/dL Hematocrit 23.7 % Mean Corpuscular Volume 93 fL Mean Corpuscular Hemoglobin 30 pg Mean Corpuscular Hemoglobin Concent 33 g/dL Red Cell Distribution Width 15.6 % Platelet Count 352 x10^3/uL Neutrophils (%) (Auto) 66 % Lymphocytes (%) (Auto) 23 % Monocytes (%) (Auto) 9 % Eosinophils (%) (Auto) 2 % Basophils (%) (Auto) 1 % Neutrophils # (Auto) 8.8 x10^3/uL Lymphocytes # (Auto) 3.0 x10^3/uL Monocytes # (Auto) 1.1 x10^3/uL Eosinophils # (Auto) 0.3 x10^3/uL Basophils # (Auto) 0.1 x10^3/uL Sodium Level 142 mmol/L Potassium Level 3.7 mmol/L Chloride Level 111 mmol/L Carbon Dioxide Level 18 mmol/L Anion Gap 13 Blood Urea Nitrogen 25 mg/dL Creatinine 1.8 mg/dL Estimated GFR (Cockcroft-Gault) 26.6 BUN/Creatinine Ratio 14 Glucose Level 97 mg/dL Calcium Level 9.0 mg/dL Total Bilirubin 0.1 mg/dL Aspartate Amino Transf (AST/SGOT) 15 U/L Alanine Aminotransferase (ALT/SGPT) 13 U/L Alkaline Phosphatase 70 U/L Total Protein 6.0 g/dL Albumin 2.1 g/dL Albumin/Globulin Ratio 0.5 URINE CULTURE Final Final No Growth on 02/05/20 at 1351 PE: GEN: NAD LUNGS: some upper airway coarseness HEART: RRR ABD: upper abdominal fullness, hyperactive BS, non-tender NEURO/PSYCH: confused A/P: Dementia Leukocytosis (better), chronic anemia/ACD Large hiatal hernia, ventral hernia w/ loop of colon - poor surgical candidate, on PPI and soft diet, stooling -- Continue same per GI. Justicifation of Admission Dx: Justifications for Admission: Justification of Admission Dx: Yes PAOLA KHOURY Feb 06, 2020 09:29
--- NOTE | 2020-02-06 10:07 | PDOC ---
Infectious Disease Note Subjective Subjective Doing better Ate all her breakfast No F/C/S/N/V/D/pain or rash Vital Sign Vital Signs Vital Signs Date Time Temp Pulse Resp B/P (MAP) Pulse Ox O2 Delivery O2 Flow Rate FiO2 02/06/20 09:12 59 170/61 02/06/20 07:15 98.1 16 94 Room Air 98.1 Physical Exam PHYSICAL EXAM GEN: NAD and alert. In bed HEENT: She has normal conjunctivae. Her right eye is scarred over. Oral cavity; oropharynx is moist. NECK: Supple, no JVD. LUNGS: Clear to auscultation. HEART: S1, S2. ABDOMEN: She has a ventral hernia in her mid abdomen. It is nontender. Has no guarding. Abdomen is soft with positive bowel sounds. EXTREMITIES: Without clubbing, cyanosis or gross edema. SKIN: Warm to touch without generalized signs of rash. She does have some yeast about her breasts. NEUROLOGIC: She moves all extremities, answers questions, but she is confused. Labs Lab Laboratory Tests Test 02/06/20 03:28 White Blood Count 13.3 x10^3/uL (4.0-11.0) Red Blood Count 2.56 x10^6/uL (3.50-5.40) Hemoglobin 7.8 g/dL (12.0-15.5) Hematocrit 23.7 % (36.0-47.0) Mean Corpuscular Volume 93 fL (79-100) Mean Corpuscular Hemoglobin 30 pg (25-35) Mean Corpuscular Hemoglobin Concent 33 g/dL (31-37) Red Cell Distribution Width 15.6 % (11.5-14.5) Platelet Count 352 x10^3/uL (140-400) Neutrophils (%) (Auto) 66 % (31-73) Lymphocytes (%) (Auto) 23 % (24-48) Monocytes (%) (Auto) 9 % (0-9) Eosinophils (%) (Auto) 2 % (0-3) Basophils (%) (Auto) 1 % (0-3) Neutrophils # (Auto) 8.8 x10^3/uL (1.8-7.7) Lymphocytes # (Auto) 3.0 x10^3/uL (1.0-4.8) Monocytes # (Auto) 1.1 x10^3/uL (0.0-1.1) Eosinophils # (Auto) 0.3 x10^3/uL (0.0-0.7) Basophils # (Auto) 0.1 x10^3/uL (0.0-0.2) Sodium Level 142 mmol/L (136-145) Potassium Level 3.7 mmol/L (3.5-5.1) Chloride Level 111 mmol/L (98-107) Carbon Dioxide Level 18 mmol/L (21-32) Anion Gap 13 (6-14) Blood Urea Nitrogen 25 mg/dL (7-20) Creatinine 1.8 mg/dL (0.6-1.0) Estimated GFR (Cockcroft-Gault) 26.6 BUN/Creatinine Ratio 14 (6-20) Glucose Level 97 mg/dL (70-99) Calcium Level 9.0 mg/dL (8.5-10.1) Total Bilirubin 0.1 mg/dL (0.2-1.0) Aspartate Amino Transf (AST/SGOT) 15 U/L (15-37) Alanine Aminotransferase (ALT/SGPT) 13 U/L (14-59) Alkaline Phosphatase 70 U/L (46-116) Total Protein 6.0 g/dL (6.4-8.2) Albumin 2.1 g/dL (3.4-5.0) Albumin/Globulin Ratio 0.5 (1.0-1.7) Micro Microbiology 01/30/20 Blood Culture - Preliminary, Resulted NO GROWTH AFTER 4 DAYS Objective Assessment Leukocytosis - better- Procal only mild elevation but could be elevated with GURDEEP GURDEEP - stable H/o UTI with resistant Ecoli/VRE - cults neg Dementia Chronic H/H Ventral hernia - nontender Thyroid nodule Yeast skin infection - better Plan Plan of Care Will discont Meropenem/micafungin started 02/03 with neg cults and improved overall ok to transfer D/w nursing D/w ATIYA Guerrero MD Feb 06, 2020 10:07
--- NOTE | 2020-02-06 10:39 | SNU/HH DC ---
DISCHARGE ORDERS DISCHARGE INFORMATION: DISCHARGE DATE: Feb 06, 2020 FINAL DIAGNOSIS Problems Medical Problems: (1) Sepsis Status: Acute (2) Suspected 2019 novel coronavirus infection Status: Acute CONDITION ON DISCHARGE: Stable CODE STATUS: Code Status: DNR/DNI PRISON: SNF STAY <30 DAYS: Yes POST DISCHARGE ORDERS: ACTIVITY ORDERS: Resume previous activity, Activity as tolerated WEIGHT BEARING STATUS: Full weight bearing, As tolerated BATHING ORDERS: Shower-keep dressing dry, No Tub Bath until see DIET AFTER DISCHARGE: Regular WOUND/INCISION CARE: Change dressing, Reinforce dressing PRN OTHER ORDERS: chnage wood q 4 weeks CHECKS AFTER DISCHARGE: CHECKS AFTER DISCHARGE: Check blood press - daily TREATMENT/EQUIPMENT ORDERS: ADAPTIVE EQUIPMENT NEEDED: None, Walker Physical Therapy For: Evalulation/Treatment Occupational Therapy For: Evaluation/Treatment DISCHARGE MEDICATIONS: Home Meds Reported Medications Diphenhydramine Hcl (DIPHENHYDRAMINE HCL) 25 Mg Tablet, 25 MG PO PRN DAILY PRN for ITCHING, TAB 01/30/20 Lactobacillus Acidophilus (ACIDOPHILUS) 1 Each Capsule, 1 CAP PO DAILY for supplement, CAP 0 Refills 01/30/20 Quetiapine Fumarate (SEROQUEL) 25 Mg Tablet, 25 MG PO HS for DEMENTIA WITH BEHAVIORS, TAB 10/30/19 Quetiapine Fumarate (SEROQUEL) 25 Mg Tablet, 12.5 MG PO BIDWBKFT/GALLITO for DEMENTIA WITH BEHAVIORS, TAB 10/30/19 Aspirin (ASPIRIN) 81 Mg Tab.chew, 1 TAB PO DAILY for , #30 TAB 3 Refills 10/30/19 Pantoprazole Sodium (PROTONIX ) 40 Mg Tablet.dr, 40 MG PO DAILY for GERD, TAB 01/27/19 Acetaminophen (ACETAMINOPHEN) 500 Mg Tablet, 1000 MG PO TID for pain , TAB TID at 0800, 1200, and 1700 01/27/19 Ascorbic Acid (VITAMIN C) 500 Mg Tablet, 500 MG PO BID for supplement, TAB BID at 0800 and 17001/27/19 Ferrous Sulfate (FEROSUL) 325 Mg Tablet, 325 MG PO BID for supplement , TAB BID at 0800 and 1700 01/27/19 Diltiazem HCl (Diltiazem 24Hr ER (LA)) 240 Mg Tab.er.24h, 240 MG PO BID for hypertension, TAB.SR BID at 0800 and 17001/27/19 Ergocalciferol (Vitamin D2) (VITAMIN D2) 50,000 Unit Capsule, 1 CAP PO WEEKLY for supplement, #4 CAP 5 Refills Once a week on Sunday01/27/19 Multivitamins,Therapeutic (THERA-TABS) 1 Each Tablet, 1 EACH PO DAILY08 for supplement, TAB 01/27/19 Prednisolone Acetate (PREDNISOLONE ACETATE) 5 Ml Drops.susp, 1 DROP LEFTEYE DAILY08 for glaucoma, #5 ML 01/27/19 Discontinued Reported Medications Cephalexin (KEFLEX) 500 Mg Capsule, 1 CAP PO TID for cellulitis for 10 Days, #30 CAP 0 Refills 01/30/20 BERRY CAMPBELL MD Feb 06, 2020 10:39
[2020-02-06 11:09] VITALS: BP 152/50
--- NOTE | 2020-02-06 13:12 | PDOC3 ---
Discharge Summary Follow-Up: Other ([facility]) Problems: (1) AMS (altered mental status) (2) Hvhyj-ld-fzwkbbt kidney injury (3) Sepsis (4) Candidiasis, intertriginous (5) Anemia (6) Dementia (7) Osteoarthritis FINAL DIAGNOSIS Problems Medical Problems: (1) Sepsis Status: Acute (2) Suspected 2019 novel coronavirus infection Status: Acute Brief Hospital Course Ms. Bear is a 89 old female who presented with presented with altered mental status and fever. Suspicion that she might have COVID 19 was tested for that. On arrival to the hospital he was found to have mild erythema of the right side of the face as well as redness on the left breast. I did start her on IV Zosyn and Zyvox and she did initially very well. Unfortunately she started complaining of shortness of breath and feeling generally unwell. Chest x-ray showed that she has large hiatal hernia with large bilateral pleural effusion versus atelectasis or infiltrate. Her white cell count was also started to rise to trend upward and I did consult Dr. Newby assist with management. Antibiotics to meropenem and anidulafungin and she responded very well. She was afebrile hemodynamically stable her white cell count has normalized. Patient will be discharged back to [facility]. CONDITION AT DISCHARGE: Improved Discharge Medications Current Medications Ceftriaxone Sodium (Rocephin) 1 gm 1X ONCE IVP Last administered on 01/30/20 15:11; Start 01/30/20 at 13:15; Stop 01/30/20 at 13:16; Status DC Acetaminophen (Tylenol) 1,000 mg TID PO Last administered on 02/06/20 09:14; Start 01/30/20 at 21:00 Ascorbic Acid (Vitamin C) 500 mg BID PO Last administered on 02/06/20 09:11; Start 01/30/20 at 21:00 Aspirin (Aspirin Chewable) 81 mg DAILY PO Last administered on 02/06/20 09:10; Start 01/31/20 at 09:00 Ergocalciferol (Vitamin D2) 50,000 unit WEEKLY PO Last administered on 02/06/20 09:10; Start 02/06/20 at 09:00 Ferrous Sulfate (Feosol) 325 mg BIDWMEALS PO Last administered on 02/06/20 09:10; Start 01/31/20 at 08:00 Pantoprazole Sodium (Protonix) 40 mg DAILY PO Last administered on 02/06/20 09:10; Start 01/31/20 at 09:00 Quetiapine Fumarate (SEROquel) 12.5 mg BIDWBKFT/GALLITO PO Last administered on 02/06/20 11:50; Start 01/31/20 at 08:00 Quetiapine Fumarate (SEROquel) 25 mg HS PO Last administered on 02/05/20 22:15; Start 01/30/20 at 21:00 Diltiazem HCl (Cardizem 24hr Cd) 240 mg BID PO Last administered on 02/06/20 09:12; Start 01/30/20 at 21:00 Diphenhydramine HCl (Benadryl) 25 mg PRN Q6HRS PRN PO ITCHING; Start 01/30/20 at 17:45 Lactobacillus Rhamnosus (Culturelle) 1 cap BID PO Last administered on 02/06/20 09:11; Start 01/30/20 at 21:00 Multivitamins (Thera M Plus) 1 tab DAILY PO Last administered on 02/06/20 09:11; Start 01/31/20 at 09:00 Dexamethasone Sodium Phosphate (Maxidex) 1 drop DAILY08 OS Last administered on 02/06/20 09:12; Start 01/31/20 at 08:00 Linezolid/Dextrose 300 ml @ 300 mls/hr Q12HR IV Last administered on 02/04/20 08:22; Start 01/30/20 at 21:00; Stop 02/04/20 at 10:35; Status DC Piperacillin Sod/ Tazobactam Sod 2.25 gm/Sodium Chloride 50 ml @ 100 mls/hr Q6HRS IV Last administered on 02/04/20 06:14; Start 01/30/20 at 18:00; Stop 02/04/20 at 10:35; Status DC Nystatin (Nystop) 1 jocelyne BID TP Last administered on 02/06/20 09:12; Start 01/30/20 at 21:00 Potassium Chloride (Klor-Con) 40 meq 1X ONCE PO Last administered on 02/03/20at 21:24; Start 02/03/20 at 20:30; Stop 02/03/20 at 20:31; Status DC Potassium Chloride (Klor-Con) 40 meq 1X ONCE PO Last administered on 02/03/20at 23:55; Start 02/03/20 at 22:30; Stop 02/03/20 at 22:31; Status DC Micafungin Sodium 100 mg/Dextrose 100 ml @ 100 mls/hr Q24H IV Last administered on 02/06/20at 09:15; Start 02/04/20 at 11:00; Stop 02/06/20 at 10:27; Status DC Meropenem 500 mg/ Sodium Chloride 50 ml @ 100 mls/hr Q8HRS IV Last administered on 02/06/20at 06:40; Start 02/04/20 at 11:00; Stop 02/06/20 at 10:27; Status DC Hydralazine HCl (Apresoline) 25 mg TID PO Last administered on 02/06/20at 09:11; Start 02/05/20 at 14:00 Active Scripts Active Reported Diphenhydramine Hcl 25 Mg Tablet 25 Mg PO PRN DAILY PRN Acidophilus (Lactobacillus Acidophilus) 1 Each Capsule 1 Cap PO DAILY Seroquel (Quetiapine Fumarate) 25 Mg Tablet 25 Mg PO HS Seroquel (Quetiapine Fumarate) 25 Mg Tablet 12.5 Mg PO BIDWBK/ Aspirin 81 Mg Tab.chew 1 Tab PO DAILY Protonix (Pantoprazole Sodium) 40 Mg Tablet.dr 40 Mg PO DAILY Acetaminophen 500 Mg Tablet 1,000 Mg PO TID TID at 0800, 1200, and 1700 Vitamin C (Ascorbic Acid) 500 Mg Tablet 500 Mg PO BID BID at 0800 and 1700 Ferosul (Ferrous Sulfate) 325 Mg Tablet 325 Mg PO BID BID at 0800 and 1700 Diltiazem 24Hr ER (LA) (Diltiazem HCl) 240 Mg Tab.er.24h 240 Mg PO BID BID at 0800 and 1700 Vitamin D2 (Ergocalciferol (Vitamin D2)) 50,000 Unit Capsule 1 Cap PO WEEKLY Once a week on Sunday Thera-Tabs (Multivitamins,Therapeutic) 1 Each Tablet 1 Each PO DAILY08 Prednisolone Acetate 5 Ml Drops.susp 1 Drop LEFTEYE DAILY08 Vital Signs Vital Signs Date Time Temp Pulse Resp B/P (MAP) Pulse Ox O2 Delivery O2 Flow Rate FiO2 02/06/20 11:09 98.9 69 16 152/50 (84) 94 Room Air 98.9 Labs Laboratory Tests Test 02/05/20 03:30 02/06/20 03:28 White Blood Count 15.3 x10^3/uL (4.0-11.0) 13.3 x10^3/uL (4.0-11.0) Red Blood Count 2.57 x10^6/uL (3.50-5.40) 2.56 x10^6/uL (3.50-5.40) Hemoglobin 7.8 g/dL (12.0-15.5) 7.8 g/dL (12.0-15.5) Hematocrit 23.6 % (36.0-47.0) 23.7 % (36.0-47.0) Mean Corpuscular Volume 92 fL (79-100) 93 fL (79-100) Mean Corpuscular Hemoglobin 31 pg (25-35) 30 pg (25-35) Mean Corpuscular Hemoglobin Concent 33 g/dL (31-37) 33 g/dL (31-37) Red Cell Distribution Width 15.1 % (11.5-14.5) 15.6 % (11.5-14.5) Platelet Count 382 x10^3/uL (140-400) 352 x10^3/uL (140-400) Neutrophils (%) (Auto) 73 % (31-73) 66 % (31-73) Lymphocytes (%) (Auto) 17 % (24-48) 23 % (24-48) Monocytes (%) (Auto) 7 % (0-9) 9 % (0-9) Eosinophils (%) (Auto) 2 % (0-3) 2 % (0-3) Basophils (%) (Auto) 1 % (0-3) 1 % (0-3) Neutrophils # (Auto) 11.2 x10^3/uL (1.8-7.7) 8.8 x10^3/uL (1.8-7.7) Lymphocytes # (Auto) 2.6 x10^3/uL (1.0-4.8) 3.0 x10^3/uL (1.0-4.8) Monocytes # (Auto) 1.1 x10^3/uL (0.0-1.1) 1.1 x10^3/uL (0.0-1.1) Eosinophils # (Auto) 0.3 x10^3/uL (0.0-0.7) 0.3 x10^3/uL (0.0-0.7) Basophils # (Auto) 0.1 x10^3/uL (0.0-0.2) 0.1 x10^3/uL (0.0-0.2) Sodium Level 142 mmol/L (136-145) 142 mmol/L (136-145) Potassium Level 4.1 mmol/L (3.5-5.1) 3.7 mmol/L (3.5-5.1) Chloride Level 111 mmol/L (98-107) 111 mmol/L (98-107) Carbon Dioxide Level 18 mmol/L (21-32) 18 mmol/L (21-32) Anion Gap 13 (6-14) 13 (6-14) Blood Urea Nitrogen 30 mg/dL (7-20) 25 mg/dL (7-20) Creatinine 1.9 mg/dL (0.6-1.0) 1.8 mg/dL (0.6-1.0) Estimated GFR (Cockcroft-Gault) 24.9 26.6 Glucose Level 91 mg/dL (70-99) 97 mg/dL (70-99) Calcium Level 8.4 mg/dL (8.5-10.1) 9.0 mg/dL (8.5-10.1) BUN/Creatinine Ratio 14 (6-20) Total Bilirubin 0.1 mg/dL (0.2-1.0) Aspartate Amino Transf (AST/SGOT) 15 U/L (15-37) Alanine Aminotransferase (ALT/SGPT) 13 U/L (14-59) Alkaline Phosphatase 70 U/L (46-116) Total Protein 6.0 g/dL (6.4-8.2) Albumin 2.1 g/dL (3.4-5.0) Albumin/Globulin Ratio 0.5 (1.0-1.7) Laboratory Tests Test 02/06/20 03:28 White Blood Count 13.3 x10^3/uL (4.0-11.0) Red Blood Count 2.56 x10^6/uL (3.50-5.40) Hemoglobin 7.8 g/dL (12.0-15.5) Hematocrit 23.7 % (36.0-47.0) Mean Corpuscular Volume 93 fL (79-100) Mean Corpuscular Hemoglobin 30 pg (25-35) Mean Corpuscular Hemoglobin Concent 33 g/dL (31-37) Red Cell Distribution Width 15.6 % (11.5-14.5) Platelet Count 352 x10^3/uL (140-400) Neutrophils (%) (Auto) 66 % (31-73) Lymphocytes (%) (Auto) 23 % (24-48) Monocytes (%) (Auto) 9 % (0-9) Eosinophils (%) (Auto) 2 % (0-3) Basophils (%) (Auto) 1 % (0-3) Neutrophils # (Auto) 8.8 x10^3/uL (1.8-7.7) Lymphocytes # (Auto) 3.0 x10^3/uL (1.0-4.8) Monocytes # (Auto) 1.1 x10^3/uL (0.0-1.1) Eosinophils # (Auto) 0.3 x10^3/uL (0.0-0.7) Basophils # (Auto) 0.1 x10^3/uL (0.0-0.2) Sodium Level 142 mmol/L (136-145) Potassium Level 3.7 mmol/L (3.5-5.1) Chloride Level 111 mmol/L (98-107) Carbon Dioxide Level 18 mmol/L (21-32) Anion Gap 13 (6-14) Blood Urea Nitrogen 25 mg/dL (7-20) Creatinine 1.8 mg/dL (0.6-1.0) Estimated GFR (Cockcroft-Gault) 26.6 BUN/Creatinine Ratio 14 (6-20) Glucose Level 97 mg/dL (70-99) Calcium Level 9.0 mg/dL (8.5-10.1) Total Bilirubin 0.1 mg/dL (0.2-1.0) Aspartate Amino Transf (AST/SGOT) 15 U/L (15-37) Alanine Aminotransferase (ALT/SGPT) 13 U/L (14-59) Alkaline Phosphatase 70 U/L (46-116) Total Protein 6.0 g/dL (6.4-8.2) Albumin 2.1 g/dL (3.4-5.0) Albumin/Globulin Ratio 0.5 (1.0-1.7) Allergies Allergies Coded Allergies Type Severity Reaction Last Updated Verified NSAIDS (Non-Steroidal Anti-Inflamma Allergy Intermediate 01/31/20 Yes Disposition/Orders: D/C to Another Facility Justicifation of Admission Dx: Justifications for Admission: Justification of Admission Dx: Yes BERRY CAMPBELL MD Feb 06, 2020 13:12
--- NOTE | 2020-02-06 14:02 | NUR ---
report called to marina talbot tarik alford questions answered
[2020-02-06 15:00] VITALS: BP 150/58
--- NOTE | 2020-02-06 17:45 | NUR ---
dismissed to previous home --[facility] tarik Terry with personal clothing
== END 2020-02-06 17:45 | DRG 871 ==
LOC: ER 11:33 → 6 SOUTH 13:20 → 4 NORTH 02-01 14:04
PROVIDERS: ADMIT Internal Medicine; ATTEND Internal Medicine
DX: A41.9 Sepsis, unspecified organism (principal); E43 Unspecified severe protein-calorie malnutrition; N17.9 Acute kidney failure, unspecified; B37.89 Other sites of candidiasis; I13.0 Hypertensive heart and chronic kidney disease with heart failure and stage 1 through stage 4 chronic kidney disease, or unspecified chronic kidney disease; J98.11 Atelectasis; J91.8 Pleural effusion in other conditions classified elsewhere; N61.0 Mastitis without abscess; B37.2 Candidiasis of skin and nail; E87.6 Hypokalemia; Z96.649 Presence of unspecified artificial hip joint; N18.9 Chronic kidney disease, unspecified; M15.9 Polyosteoarthritis, unspecified; K80.20 Calculus of gallbladder without cholecystitis without obstruction; K57.30 Diverticulosis of large intestine without perforation or abscess without bleeding; K44.9 Diaphragmatic hernia without obstruction or gangrene; K43.9 Ventral hernia without obstruction or gangrene; K21.9 Gastro-esophageal reflux disease without esophagitis; I73.9 Peripheral vascular disease, unspecified; I25.10 Atherosclerotic heart disease of native coronary artery without angina pectoris; Z20.828 Contact with and (suspected) exposure to other viral communicable diseases; G89.4 Chronic pain syndrome; D64.9 Anemia, unspecified; F03.90 Unspecified dementia, unspecified severity, without behavioral disturbance, psychotic disturbance, mood disturbance, and anxiety; I50.9 Heart failure, unspecified; R16.0 Hepatomegaly, not elsewhere classified; E04.1 Nontoxic single thyroid nodule; Z87.11 Personal history of peptic ulcer disease; Z86.14 Personal history of Methicillin resistant Staphylococcus aureus infection; Z87.440 Personal history of urinary (tract) infections; Z85.828 Personal history of other malignant neoplasm of skin; Z83.3 Family history of diabetes mellitus; Z82.49 Family history of ischemic heart disease and other diseases of the circulatory system; Z79.899 Other long term (current) drug therapy; Z87.81 Personal history of (healed) traumatic fracture; Z87.01 Personal history of pneumonia (recurrent)
CPT/HCPCS: 36415; 71045; 71250; 74150; 80048; 80053; 81001; 82550; 82728; 83540; 83550; 83605; 83615; 83880; 84145; 85007; 85025; 85027; 85379; 86140; 87040; 87086; 93005; 96360; 99285; J0696; J2020; J2185; J2248; J2543; J7060; P9612; G0378; U0003-CS